=== PATIENT | female | born 1950 | race Caucasian/White ===

== ENCOUNTER 2023-10-05 17:43 | Emergency (ER) | payer BC, SELFPAY ==
[2023-10-05 17:47] VITALS: BP 103/88
[2023-10-05 18:09] LABS: % Basophils 0.2 % (0-2); % Immature Granulocytes 0.4 % (0-0.5); % Lymphocytes 5.8 % (20.5-51.1); % Monocytes 7.1 % (1.7-9.3); % Neutrophils 86.5 % (42.2-75.2); Absolute Immature Granulocytes 0.1 10^3/uL (0-0.05); Absolute Lymphocytes 0.8 10^3/uL (1.2-3.4); Absolute Neutrophils 11.9 10^3/uL (1.4-6.5); Hematocrit 37.3 % (37.0-47.0); Hemoglobin 12.1 g/dL (12.0-16.0); Mean Corp Hgb Conc. 32.4 g/dL (33.0-37.0); Mean Corpuscular Hgb 29.4 pg (27.0-31.0); Mean Corpuscular Volume 90.8 fL (81.0-99.0); Mean Platelet Volume 10.1 fL (7.4-10.4); Nucleated Red Blood Cells % 0 %; Platelet Count 158 10^3/uL (130-400); Red Blood Cell Count 4.11 10^6/uL (4.20-5.40); Red Cell Dist. Width 13.5 % (11.5-14.5); White Blood Cell Count 13.7 10^3/uL (4.8-10.8)
[2023-10-05 18:25] LABS: Urine Albumin 2+ (Neg - Trace); Urine Bilirubin 1+ (Negative); Urine Character Slightly Cloudy (Clear); Urine Color Yellow; Urine Glucose Negative (Negative); Urine Ketone 2+ (Negative); Urine Leukocyte 2+ (Negative); Urine Nitrite Negative (Negative); Urine Occult Blood 4+ (Negative); Urine Urobilinogen 1+ (Neg - 1+)
[2023-10-05 18:28] LABS: ALT (SGPT) 30 U/L (0-35); AST (SGOT) 46 U/L (14-36); Albumin 3.4 g/dl (3.5-5.0); Alkaline Phosphatase 96 U/L (38-126); Blood Urea Nitrogen 40 mg/dl (7-17); Carbon Dioxide 24 mmol/L (22-30); Chloride 100 mmol/L (98-107); Glucose 165 mg/dl (70-99); Potassium 4.3 mmol/L (3.5-5.1); Sodium 133 mmol/L (135-145); Total Protein 7.1 g/dl (6.3-8.2); eGFR 39.97
[2023-10-05 18:35] LABS: Urine Amorphous Seen
[2023-10-05 18:39] LABS: Urine Bacteria Many (Negative)
[2023-10-05 18:42] LABS: Urine Red Blood Cell 26-30 /HPF (0-2)
--- NOTE | 2023-10-05 20:49 | ED.GENMED ---
History of Present Illness
General
Chief Complaint: Weakness
Source: patient
Exam Limitations: none
Time Seen by Provider: 10/05/23 20:38
Travel History
Have you had any contact with someone who has COVID-19?: No
Do you have any symptoms of coronavirus? Fever > 100 degrees, chills, cough, shortness of breath, sore throat, loss of taste or smell, muscle aches, or headache?: No
History of Present Illness
History of Present Illness:
This is a 73 year old female that comes in with c/o just not feeling good. States that she has been sick since Thursday. Stats that she has a headache and feels very weak. States that on Thursday and Thursday she was unable to get up without help.
States that today she could get up and get into the tub. States that it just seemed that her legs wouldn't work to well. States that she went to today and they said she had a low grade fever of 99.9. States that she was negative for COVID and
Influenza. States that she has been SOB, she vomited 4 times on Thursday and has a headache across her forehead. States that she also felt cold. Denies any chest pain, abd pain, diarrhea, dizziness, urinary burning.
Past History
Past History
ED Past Medical History: Hypercholesterolemia, NIDDM and Other (Macular degeneration)
ED Past Surgical History: (X 2) and Other (cataracts)
Social History
Tobacco: Non-smoker
Alcohol: None
Personal:
Living: with family
Review of Systems
Review of Systems
All Other Systems: ROS reviewed and negative except as documented in HPI and ROS
Constitutional: Reports fever (Low grade); Denies chills
EENT: Reports no symptoms
Respiratory: Reports trouble breathing; Denies cough
Cardiac: Reports no symptoms; Denies chest pain
ABD/GI: Reports vomiting; Denies abdominal pain, nausea or diarrhea
: Reports no symptoms; Denies dysuria, frequency or urgency
Musculoskeletal: Reports back pain (Right low back pain. ) and other (Difficulty walking)
Skin: Reports no symptoms
Neurological: Reports headache; Denies dizzy
Psychiatric: Reports no symptoms
Phy Exam
General Physical Exam
General Presentation: no apparent distress
General age: appears stated age
General Skin: warm and dry
General Habitus: elderly
General Mental: alert
General Hydration: dry mucous membranes
ENT Exam
ENT Exam: TM's normal, pharynx normal and neck supple
Eye Exam
Eye Exam: EOMI
Cardiovascular Exam
Cardiovascular Exam: regular rate/rhythm, no edema and normal peripheral pulses
Pulmonary Exam
Pulmonary Exam: lungs clear, no respiratory distress, no rales, chest non tender, no crackles, no rhonchi, no wheezing and no cough
Gastrointestinal Exam
Gastrointestinal Exam: normal bowel sounds, non tender, soft, no organomegaly, no pulsatile mass and non distended
Musculoskeletal Exam
Musculoskeletal Exam: full ROM and no edema
Skin Exam
Skin Exam: normal color, warm/dry, no rash and no petechia
Psychiatric Exam
Psychiatric Exam: normal mood/affect
Course
Orders/Labs/Results
Orders:
Orders
10/05/23 17:53
Electrocardiogram (*1) Urgent
Reason for Study: Other
Other Reason for Exam: Possible Sepsis
EKG- Treatment ONCE
10/05/23 17:59
Complete Blood Count/With Diff Urgent
Comprehensive Metabolic Panel Urgent
10/05/23 18:10
Urinalysis Reflex To Culture Urgent
Date Specimen was Collected: 10/05/23
Time Specimen was Collected: 17:53
Urine Microscopic Reflex Cult Urgent
Urine Culture Urgent
MARY Source: U
Specimen Description:
Date Specimen was Collected: 10/05/23
Time Specimen was Collected: 17:53
10/05/23 20:49
US Abdomen Complete/Upper Urgent
Comment:
Reason For Exam: right upper abd pain, blood in urine
10/05/23 20:50
CT Head W/o Iv Contrast Urgent
Comment:
Reason For Exam: difficulty walking headache,
10/05/23 20:51
0.9% Sodium Chloride 1000 ml [Nss] 1,000 ml IV BOLUS
Acetaminophen [Tylenol] 1,000 mg PO NOW STA
10/05/23 20:52
CR Chest - 2 Views Urgent
Comment:
Reason For Exam: SOB
10/05/23 21:00
Troponin I Urgent
10/05/23 22:15
CefTRIAXone [Rocephin] 1,000 mg IV NOW STA
Abnormal Lab Results
10/05/23 10/05/23
17:59 18:10
WBC 13.7 H 10^3/uL
(4.8-10.8)
RBC 4.11 L 10^6/uL
(4.20-5.40)
MCHC 32.4 L g/dL
(33.0-37.0)
Abs Immat Gran (auto) 0.1 H 10^3/uL
(0-0.05)
Absolute Neuts (auto) 11.9 H 10^3/uL
(1.4-6.5)
Absolute Lymphs (auto) 0.8 L 10^3/uL
(1.2-3.4)
Absolute Monos (auto) 1.0 H 10^3/uL
(0.1-0.6)
Neutrophils % 86.5 H %
(42.2-75.2)
Lymphocytes % 5.8 L %
(20.5-51.1)
Sodium 133 L mmol/L
(135-145)
BUN 40 H mg/dl
(7-17)
Creatinine 1.4 H mg/dL
(0.6-1.0)
Glucose 165 H mg/dl
(70-99)
Total Bilirubin 2.0 H mg/dl
(0.2-1.3)
AST 46 H U/L
(14-36)
Albumin 3.4 L g/dl
(3.5-5.0)
Urine Ketones 2+ A
(Negative)
Ur Occult Blood Reflex 4+ A
(Negative)
Urine Bilirubin 1+ A
(Negative)
Leukocyte Esterase Rfl 2+ A
(Negative)
Urine RBC 26-30 A /HPF
(0-2)
Urine WBC (Reflex) 11-15 A /HPF
(0-5)
Urine Bacteria (Reflex) Many A
(Negative)
Urine Albumin (Reflex) 2+ A
(Neg - Trace)
10/05/23 17:59
10/05/23 17:59
Leukocytosis, Sodium slightly low, Dehydration, renal insufficiency, Glucose nonfasting, Total dalila mildly elevated. AST elevation. Urine positive for infection.
Troponin 0.019
Vital Signs
Initial and Last Documented VS:
Initial Vital Signs
Temp Pulse BP Pulse Ox
98.7 F 102 103/88 98
10/05/23 17:47 10/05/23 17:47 10/05/23 17:47 10/05/23 17:47
Last Documented Vital Signs
Temp Pulse Resp BP Pulse Ox
98.7 F 76 14 116/53 93
10/05/23 17:47 10/06/23 00:15 10/06/23 00:15 10/06/23 00:00 10/06/23 00:00
MDM/Problems Addressed
Differential Diagnosis Includes:
UTI, viral syndrome
MDM/Problems Addressed:
This is a 73 year old female that comes in with c/o just not feeling well. states that she has been sick since Thursday with a headache and felt very weak. States that she needed to have her son help her to get OOB on Thursday and Thursday. Today she
was able to get up herself. States that she has increased right sided low back pain, she vomited 4 times on Thursday and has a headache.
Will get labs, CT head, Chest x-ray and Urine. Will also get US complete due to RUQ pain.
Back into see patient. Patient was sleeping but arouses easily. Explained that her blood work shows dehydrated and she has a urinary tract infection. Her CT of the head is normal. Got patient OOB and patient is able to walk unassisted and dressed
self. States that she feels much better. Will place patient on an oral antibiotic and have her follow up with the family doctor. Patient to return with any concern
Chronic conditions affecting care: DM
Acute Exacerbation and/or Progression of Chronic Illness:
NA
*Radiology
Radiology exam reviewed: radiology read reviewed (CT head-No acute intracranial abnormality noted. Chest- NO acute cardiopulmonary process US=NO acute findings. No gallstones or slidge within the gallbladder. No gallbladder wall thickening or
appreciable pericholecystic fluid. Negative sonographic Valdez's sign per report. No ductal dialtion.) and other (US cont- CMD measures 5mm in diameter which is within normal limits. Visualized pancreas and liver appear within normal limits. Righ
tkidney appears normal. Left kidney is atrophic with cortical thinning. Spleen appears normal. No appreciable free fluid. )
*Pulse Oximetry
Patient hypoxic: no
*EKG
Interpreted by ED Provider?: Yes
Interpretation: normal
Heart Rate: 88
Rate: normal
Rhythm: sinus
[place]: normal axis
Interval: normal interval
QRS Pattern: normal QRS
Ischemia: no ischemia
*Equipment [employer]er Storage Interpretation
Rate: Equipment [employer]er Storage- N/A
*Critical Care Note
Total Time (30-74mins, 75-104mins- exclusive of procedures): Not Applicable
ED Attending Note
-
Portions of this chart may have been created with voice recognition software.� Occasional wrong word or��sound alike� substitutions may have occurred due to the inherent limitations of voice recognition software.
Discharge Plan
Departure
Patient Disposition: Home (Routine Discharge)
Date of Disposition: 10/06/23
Time of Disposition: 00:32
Patient with high blood pressure during this ER visit?: No
Condition: Good
Covid-19: Not Applicable
Discharge Problem:
Acute dehydration, Urinary tract infection
Instructions: Dehydration, Adult (DC), Urinary Tract Infection, Adult (DC)
Prescriptions:
New
cefdinir 300 mg capsule
300 mg PO BID Qty: 14 0RF
No Action
glipizide 10 mg tablet
10 mg PO BID
naproxen sodium [Aleve] 220 mg Tablet
220 mg PO Q12H PRN (Reason: right knee pain)
rosuvastatin 10 mg tablet
10 mg PO DAILY
Referrals:
NONE,* [Family Provider] -
Activity Restrictions/Additional Instructions:
As discussed, your blood work shows that you are dehydrated and your urine shows that you have a urinary tract infection. Please increase your water intake to 8-8oz glasses daily. You have have been given a prescription to take a home. Please take
as directed until finished. You were given IV antibiotics here. Please follow up with the family doctor for further evaluation. IF YOU HAVE HAVE FEVER, OR ANY OTHER CONCERNS PLEASE RETURN TO THE EMERGENCY ROOM.
Interventions
Interventions:
*Risk Screen - Suicide Last Done: 10/05/23 17:52
*General Assessment Last Done: 10/05/23 17:52
*Neglect/Abuse Screening Last Done: 10/05/23 17:52
ED- Fall Risk Assessment Last Done: 10/06/23 00:00
*ED COVID-19 Vaccine History Last Done: 10/05/23 20:59
ED- Cardiac Assessment Last Done: 10/06/23 00:00
ED- Neurological Assessment Last Done: 10/06/23 00:00
ED- Pulmonary Assessment Last Done: 10/06/23 00:00
[2023-10-05] MEDS: TYLENOL 1000 MG PO (20:56)
[2023-10-05] MEDS: NSS 1000 IV (20:57)
[2023-10-05 20:58] VITALS: BP 127/85; BMI 35.0
[2023-10-05 21:35] LABS: Troponin I 0.019 ng/ml
[2023-10-05] MEDS: ROCEPHIN 1000 MG IV (22:27)
[2023-10-05 23:56] VITALS: BP 126/57
[2023-10-06] VITALS: BP 116/53
== END 2023-10-06 00:57 | disposition home or self-care (01) ==
LOC: EMR 17:43
PROVIDERS: Clinical Nurse Specialist Family Health; Emergency Medicine; EMERGENCY PHYSICIAN Emergency Medicine
DX: E86.0 Dehydration (principal); N39.0 Urinary tract infection, site not specified; E11.9 Type 2 diabetes mellitus without complications
CPT/HCPCS: 99285; 96374; 96361; 70450; 71046; 76700; 80053; 81003; 81015; 84484; 85025; 87077; 87086; 87186; 93005

== ENCOUNTER → 2023-10-28 10:13 | Outpatient (REF) | payer BC, SELFPAY ==
[2023-10-28 11:49] LABS: ALT (SGPT) 28 U/L (0-35); AST (SGOT) 24 U/L (14-36); Alkaline Phosphatase 105 U/L (38-126); Blood Urea Nitrogen 24 mg/dl (7-17); Calcium 9.3 mg/dl (8.4-10.2); Carbon Dioxide 25 mmol/L (22-30); Chloride 108 mmol/L (98-107); Glucose 115 mg/dl (70-99); HDL Cholesterol 51 mg/dl; LDL Cholesterol, Calculated 86 mg/dl; Potassium 5.3 mmol/L (3.5-5.1); Sodium 137 mmol/L (135-145); Total Bilirubin 1.2 mg/dl (0.2-1.3); Total Cholesterol 176 mg/dl (50-199); Total Protein 7.7 g/dl (6.3-8.2); Triglyceride 199 mg/dl (10-149); Very Low Density Lipoprotein 39 mg/dl (0-30); eGFR > 60.00
[2023-10-28 12:10] LABS: Glycohemoglobin (HgbA1c) 7.7 % (4.0-5.6)
[2023-10-28 12:55] LABS: Microalbumin, Random Urine 21.5 mg/dl (0.6-1.7); Microalbumin/creatinine Ratio 245.2 mg/g
== END ==
LOC: REG 10:13
PROVIDERS: ATTENDING PHYSICIAN Nurse Practitioner Adult Health
DX: Z01.818 Encounter for other preprocedural examination (principal)
CPT/HCPCS: 36415; 80053; 80061; 82043; 82570; 83036

== ENCOUNTER → 2023-12-29 08:20 | Outpatient (REF) | payer BC, SELFPAY | LOC: CLAB 08:20 | PROVIDERS: ATTENDING PHYSICIAN Surgery | DX: N39.0 Urinary tract infection, site not specified (principal) | CPT/HCPCS: 87077; 87086; 87186 ==

== ENCOUNTER 2024-01-14 12:52 | Inpatient (IN) | payer BC, MEDICARE, SELFPAY ==
[2024-01-14] VITALS (36 sets, daily range): BP systolic 59–122; BP diastolic 36–74; BMI 35.3
--- NOTE | 2024-01-14 11:21 | ED.GENMED ---
History of Present Illness
<JENNIFER Dominguez - Last Filed: 01/14/24 15:20>
General
Chief Complaint: Fever
Source: patient
Exam Limitations: none
Time Seen by Provider: 01/14/24 11:18
Nursing documentation reviewed up to this point in time: agreed with
Travel History
Have you had any contact with someone who has COVID-19?: No
Do you have any symptoms of coronavirus? Fever > 100 degrees, chills, cough, shortness of breath, sore throat, loss of taste or smell, muscle aches, or headache?: No
History of Present Illness
History of Present Illness:
Patient is a 73-year-old female sent from surgery center. Patient being sent to the ER for post uroscopic sepsis had a kidney stone surgery stent exchange and replaced 2 hours prior to arrival and developed fever chills and tachycardia in PACU send
history of type 2 diabetes with recurrent UTI since early 2023. She had urosepsis December 2023 and required emergent stent placement in [facility]. Patient being sent by Dr. Oates for IV antibiotics, admission for urosepsis. And notes from
PACU appears the patient did get Cipro this morning however we will still give Levaquin as discussed with ED physician. Patient still presents febrile but apparently got Tylenol prior to arrival will give small dose of Toradol IV.
.
Past History
<JENNIFER Dominguez - Last Filed: 01/14/24 15:20>
Past History
ED Past Medical History: Hypercholesterolemia, NIDDM and Other (Macular degeneration)
ED Past Surgical History: (X 2) and Other (cataracts)
Social History
Tobacco: Non-smoker
Alcohol: None
Personal:
Living: with family
Review of Systems
<JENNIFER Dominguez - Last Filed: 01/14/24 15:20>
Review of Systems
Allergies reviewed?: Yes
All Other Systems: ROS reviewed and negative except as documented in HPI and ROS
Constitutional: Reports chills
EENT: Reports no symptoms
Respiratory: Reports no symptoms
Cardiac: Reports no symptoms
ABD/GI: Reports no symptoms
Musculoskeletal: Reports no symptoms
Skin: Reports no symptoms
Neurological: Reports no symptoms
Psychiatric: Reports no symptoms
Phy Exam
<JENNIFER Dominguez - Last Filed: 01/14/24 15:20>
General Physical Exam
General Presentation: no apparent distress
General age: appears stated age
General Skin: warm and dry
General Habitus: normal
General Mental: alert
General Hydration: appears well hydrated
Cardiovascular Exam
Cardiovascular Exam: regular rate/rhythm, no murmur and normal peripheral pulses
Pulmonary Exam
Pulmonary Exam: lungs clear and no respiratory distress
Neurological Exam
Neurological Exam: alert and oriented x3
Musculoskeletal Exam
Musculoskeletal Exam: full ROM
Skin Exam
Skin Exam: normal color and warm/dry
Psychiatric Exam
Psychiatric Exam: normal mood/affect
Course
<JENNIFER Dominguez - Last Filed: 01/14/24 15:20>
Orders/Labs/Results
Orders:
Orders
01/14/24 Breakfast
1800 calorie (15 carb) Diabetic
01/14/24 11:19
Electrocardiogram (*1) Urgent
Reason for Study: Other
Other Reason for Exam: Possible Sepsis
Cardiac Monitoring- Treatment ONCE
EKG- Treatment ONCE
IV Insert/Care/Rem.- Treatment PRN
01/14/24 11:21
Basic Metabolic Panel Urgent
Complete Blood Count/With Diff Urgent
Lactic Acid Q4H
Comment: ON ICE, CANCEL 2ND ORDER IF FIRST LACTIC ACID LEVEL <2
Blood Culture Q30M
MARY Source: Blood/Venous
Specimen Description:
Comment: FROM 2 SEPARATE SITES
01/14/24 11:23
Straight cath- Treatment ONCE
01/14/24 11:24
UROLOGY CONSULT Urgent
Consulting Provider: Venkata Oates
Was physician already notified: Yes
LevoFLOXacin 500 MG/100 ML [Levaquin] 500 mg in 100 ml IV NOW
01/14/24 11:28
Ketorolac [Toradol] 15 mg IV NOW STA
01/14/24 11:29
Blood Culture Q30M
MARY Source: Blood/Venous
Specimen Description:
Comment: FROM 2 SEPARATE SITES
01/14/24 11:30
Lactic Acid Q4H
Comment: ON ICE, CANCEL 2ND ORDER IF FIRST LACTIC ACID LEVEL <2
01/14/24 11:34
UA Reflex to Culture [Urinalysis Reflex To Culture] Urgent
Date Specimen was Collected: 01/14/24
Time Specimen was Collected: 11:33
Urine Microscopic Reflex Cult Urgent
Urine Culture Urgent
MARY Source: U
Specimen Description:
Date Specimen was Collected: 01/14/24
Time Specimen was Collected: 11:33
01/14/24 12:20
Add On- LAB Stat
Tests Added?: Iron, B12, ferritin, folate, TIBC
01/14/24 12:34
Admit/Transfer Patient As Directed
Co-Sign Provider:
Level of Care: Inpatient admission
Assign to:: Telemetry
Physician / Group: julia
Diagnosis: sepsis
Reason for Telemetry: Other
Other Reason for Telemetry: sepsis
Date to Stop Telemetry: 01/16/24
Time to Stop Telemetry: 11:00
Reason for Hospitalization: sepsis
Expected length of stay greater than two midnights?: Yes
ELOS- Estimated Length of Stay in days: 3
I certify the patient meets the requirements for IP care: Yes
01/14/24 12:35
Code Status As Directed
Resuscitation Status: Full Code
01/14/24 12:46
HEMATOLOGY CONSULT Routine
Consulting Provider: Alejandro Hudson
Was physician already notified: Yes
INFECTIOUS DISEASE CONSULT Routine
Consulting Provider: Ata Infante
Was physician already notified: Yes
01/14/24 12:47
Ferritin Urgent
Folate Urgent
Iron Urgent
Total Iron Binding Urgent
Troponin I Stat
Vitamin B12 Urgent
01/14/24 13:55
Lactic Acid Q4H
Comment: repeat q4 hours x 4 or until less than 2 mmol/L
0.9% Sodium Chloride 1000 ml [Nss] 1,000 ml IV 125 mls/hr
Acetaminophen [Tylenol/Feverall] 650 mg RECTAL Q4HPRN PRN
Acetaminophen [Tylenol] 650 mg PO Q4HPRN PRN
Dextrose 50%-Water [Dextrose 50% Syringe] 12.5 grams IV [id number] PRN
Glucagon [GlucaGen] 1 mg IM PRN PRN
01/14/24 13:55
Activity As Directed
Activity Level: As Tolerated
Bedside Glucose Monitoring As Directed
Frequency: AC&HS
Additional Instructions:: Change to q6h if pt on TPN, tube feeding or not eating
Intake/ Output As Directed
Frequency: Per unit guidelines
Vital Signs As Directed
Frequency: Per unit guidelines
DX Deep Vein Thrombosis Video Routine
01/14/24 16:30
Insulin Aspart Corrective Low [Novolog Flexpen-Low Resistance] See Protocol SC AC
01/14/24 17:55
Lactic Acid Q4H
Comment: repeat q4 hours x 4 or until less than 2 mmol/L
01/14/24 18:00
Enoxaparin Sodium [Lovenox] 40 mg SC QPM
01/14/24 21:55
Lactic Acid Q4H
Comment: repeat q4 hours x 4 or until less than 2 mmol/L
01/14/24 22:00
Tamsulosin [Flomax] 0.4 mg PO HS
01/15/24 01:55
Lactic Acid Q4H
Comment: repeat q4 hours x 4 or until less than 2 mmol/L
01/15/24 06:00
Complete Blood Count/No Diff IN AM
Glycohemoglobin (HgbA1c) IN AM
01/15/24 08:00
Rosuvastatin Calcium [Crestor] 10 mg PO DAILY
01/16/24 06:00
Complete Blood Count/No Diff IN AM
01/16/24 11:00
DC Protocol for Telemetry ONCE
01/17/24 06:00
Complete Blood Count/No Diff IN AM
01/18/24 06:00
Complete Blood Count/No Diff IN AM
01/19/24 06:00
Complete Blood Count/No Diff IN AM
Abnormal Lab Results
01/14/24 01/14/24 01/14/24
11:21 11:34 12:47
WBC 0.4 L* 10^3/uL
(4.8-10.8)
RBC 3.16 L 10^6/uL
(4.20-5.40)
Hgb 9.2 L g/dL
(12.0-16.0)
Hct 29.3 L %
(37.0-47.0)
MCHC 31.4 L g/dL
(33.0-37.0)
Absolute Neuts (auto) 0.2 L* 10^3/uL
(1.4-6.5)
Absolute Lymphs (auto) 0.2 L 10^3/uL
(1.2-3.4)
Absolute Monos (auto) 0.0 L 10^3/uL
(0.1-0.6)
Immature Gran % 5.1 H %
(0-0.5)
Monocytes % 0.0 L %
(1.7-9.3)
Chloride 114 H mmol/L
(98-107)
Carbon Dioxide 19 L mmol/L
(22-30)
BUN 35 H mg/dl
(7-17)
Lactic Acid 2.5 H mmol/L
(0.7-2.0)
Calcium 8.0 L mg/dl
(8.4-10.2)
TIBC 242 L ug/dl
(265-497)
Ur Occult Blood Reflex 4+ A
(Negative)
Leukocyte Esterase Rfl 2+ A
(Negative)
Urine RBC >100 A /HPF
(0-2)
Urine Bacteria (Reflex) Few A
(Negative)
Urine Glucose 3+ A
(Negative)
Urine Albumin (Reflex) 2+ A
(Neg - Trace)
01/14/24 11:21
01/14/24 11:21
Vital Signs
Initial and Last Documented VS:
Initial Vital Signs
BP
118/74
01/14/24 11:14
Last Documented Vital Signs
Temp Pulse Resp BP Pulse Ox
98.8 F 78 16 59/38 91
01/14/24 13:57 01/14/24 14:45 01/14/24 14:45 01/14/24 14:45 01/14/24 14:45
Invisible Braces Orthodontist consulted with Physician
Invisible Braces Orthodontist consulted with physician?: Yes
Name of Physician Consulted: Jasen
<Nate Aggarwal, DO - Last Filed: 01/14/24 11:27>
Orders/Labs/Results
Orders:
Orders
01/14/24 Breakfast
1800 calorie (15 carb) Diabetic
01/14/24 11:19
Electrocardiogram (*1) Urgent
Reason for Study: Other
Other Reason for Exam: Possible Sepsis
Cardiac Monitoring- Treatment ONCE
EKG- Treatment ONCE
IV Insert/Care/Rem.- Treatment PRN
01/14/24 11:21
Basic Metabolic Panel Urgent
Complete Blood Count/With Diff Urgent
Lactic Acid Q4H
Comment: ON ICE, CANCEL 2ND ORDER IF FIRST LACTIC ACID LEVEL <2
Blood Culture Q30M
MARY Source: Blood/Venous
Specimen Description:
Comment: FROM 2 SEPARATE SITES
01/14/24 11:23
Straight cath- Treatment ONCE
01/14/24 11:24
UROLOGY CONSULT Urgent
Consulting Provider: Venkata Oates
Was physician already notified: Yes
LevoFLOXacin 500 MG/100 ML [Levaquin] 500 mg in 100 ml IV NOW
01/14/24 11:28
Ketorolac [Toradol] 15 mg IV NOW STA
01/14/24 11:29
Blood Culture Q30M
MARY Source: Blood/Venous
Specimen Description:
Comment: FROM 2 SEPARATE SITES
01/14/24 11:30
Lactic Acid Q4H
Comment: ON ICE, CANCEL 2ND ORDER IF FIRST LACTIC ACID LEVEL <2
01/14/24 11:34
UA Reflex to Culture [Urinalysis Reflex To Culture] Urgent
Date Specimen was Collected: 01/14/24
Time Specimen was Collected: 11:33
Urine Microscopic Reflex Cult Urgent
Urine Culture Urgent
MARY Source: U
Specimen Description:
Date Specimen was Collected: 01/14/24
Time Specimen was Collected: 11:33
01/14/24 12:20
Add On- LAB Stat
Tests Added?: Iron, B12, ferritin, folate, TIBC
01/14/24 12:34
Admit/Transfer Patient As Directed
Co-Sign Provider:
Level of Care: Inpatient admission
Assign to:: Telemetry
Physician / Group: julia
Diagnosis: sepsis
Reason for Telemetry: Other
Other Reason for Telemetry: sepsis
Date to Stop Telemetry: 01/16/24
Time to Stop Telemetry: 11:00
Reason for Hospitalization: sepsis
Expected length of stay greater than two midnights?: Yes
ELOS- Estimated Length of Stay in days: 3
I certify the patient meets the requirements for IP care: Yes
01/14/24 12:35
Code Status As Directed
Resuscitation Status: Full Code
01/14/24 12:46
HEMATOLOGY CONSULT Routine
Consulting Provider: Alejandro Hudson
Was physician already notified: Yes
INFECTIOUS DISEASE CONSULT Routine
Consulting Provider: Ata Infante
Was physician already notified: Yes
01/14/24 12:47
Ferritin Urgent
Folate Urgent
Iron Urgent
Total Iron Binding Urgent
Troponin I Stat
Vitamin B12 Urgent
01/14/24 13:55
Lactic Acid Q4H
Comment: repeat q4 hours x 4 or until less than 2 mmol/L
0.9% Sodium Chloride 1000 ml [Nss] 1,000 ml IV 125 mls/hr
Acetaminophen [Tylenol/Feverall] 650 mg RECTAL Q4HPRN PRN
Acetaminophen [Tylenol] 650 mg PO Q4HPRN PRN
Dextrose 50%-Water [Dextrose 50% Syringe] 12.5 grams IV [id number] PRN
Glucagon [GlucaGen] 1 mg IM PRN PRN
01/14/24 13:55
Activity As Directed
Activity Level: As Tolerated
Bedside Glucose Monitoring As Directed
Frequency: AC&HS
Additional Instructions:: Change to q6h if pt on TPN, tube feeding or not eating
Intake/ Output As Directed
Frequency: Per unit guidelines
Vital Signs As Directed
Frequency: Per unit guidelines
DX Deep Vein Thrombosis Video Routine
01/14/24 16:30
Insulin Aspart Corrective Low [Novolog Flexpen-Low Resistance] See Protocol SC AC
01/14/24 17:55
Lactic Acid Q4H
Comment: repeat q4 hours x 4 or until less than 2 mmol/L
01/14/24 18:00
Enoxaparin Sodium [Lovenox] 40 mg SC QPM
01/14/24 21:55
Lactic Acid Q4H
Comment: repeat q4 hours x 4 or until less than 2 mmol/L
01/14/24 22:00
Tamsulosin [Flomax] 0.4 mg PO HS
01/15/24 01:55
Lactic Acid Q4H
Comment: repeat q4 hours x 4 or until less than 2 mmol/L
01/15/24 06:00
Complete Blood Count/No Diff IN AM
Glycohemoglobin (HgbA1c) IN AM
01/15/24 08:00
Rosuvastatin Calcium [Crestor] 10 mg PO DAILY
01/16/24 06:00
Complete Blood Count/No Diff IN AM
01/16/24 11:00
DC Protocol for Telemetry ONCE
01/17/24 06:00
Complete Blood Count/No Diff IN AM
01/18/24 06:00
Complete Blood Count/No Diff IN AM
01/19/24 06:00
Complete Blood Count/No Diff IN AM
Abnormal Lab Results
01/14/24 01/14/24 01/14/24
11:21 11:34 12:47
WBC 0.4 L* 10^3/uL
(4.8-10.8)
RBC 3.16 L 10^6/uL
(4.20-5.40)
Hgb 9.2 L g/dL
(12.0-16.0)
Hct 29.3 L %
(37.0-47.0)
MCHC 31.4 L g/dL
(33.0-37.0)
Absolute Neuts (auto) 0.2 L* 10^3/uL
(1.4-6.5)
Absolute Lymphs (auto) 0.2 L 10^3/uL
(1.2-3.4)
Absolute Monos (auto) 0.0 L 10^3/uL
(0.1-0.6)
Immature Gran % 5.1 H %
(0-0.5)
Monocytes % 0.0 L %
(1.7-9.3)
Chloride 114 H mmol/L
(98-107)
Carbon Dioxide 19 L mmol/L
(22-30)
BUN 35 H mg/dl
(7-17)
Lactic Acid 2.5 H mmol/L
(0.7-2.0)
Calcium 8.0 L mg/dl
(8.4-10.2)
TIBC 242 L ug/dl
(265-497)
Ur Occult Blood Reflex 4+ A
(Negative)
Leukocyte Esterase Rfl 2+ A
(Negative)
Urine RBC >100 A /HPF
(0-2)
Urine Bacteria (Reflex) Few A
(Negative)
Urine Glucose 3+ A
(Negative)
Urine Albumin (Reflex) 2+ A
(Neg - Trace)
01/14/24 11:21
01/14/24 11:21
Vital Signs
Initial and Last Documented VS:
Initial Vital Signs
BP
118/74
01/14/24 11:14
Last Documented Vital Signs
Temp Pulse Resp BP Pulse Ox
98.8 F 78 16 59/38 91
01/14/24 13:57 01/14/24 14:45 01/14/24 14:45 01/14/24 14:45 01/14/24 14:45
<JENNIFER Dominguez - Last Filed: 01/14/24 15:20>
MDM/Problems Addressed
MDM/Problems Addressed:
Patient is a 73-year-old female sent from surgery center for admission patient was doing ureteroscopy, stent developed fever sent for sepsis workup. Patient was given 2 L of fluid prior to arrival and Tylenol. Patient presents awake alert febrile
however nontachycardic we will hold off on fluids as patient did have significant fluid will give small dose of Toradol to assist in fever. Patient has a history of E. coli UTIs. She was given Cipro preop as discussed a physician was given 1 dose
of Levaquin here in the ER will admit to hospital service labs reviewed patient is neutropenic admitting team aware will recheck lab BUN elevated 35 normal creatinine.
<JENNIFER Dominguez - Last Filed: 01/14/24 15:20>
*Radiology
Radiology exam reviewed: radiology read reviewed
*Critical Care Note
Total Time (30-74mins, 75-104mins- exclusive of procedures): Not Applicable
ED Attending Note
<JENNIFER Dominguez - Last Filed: 01/14/24 15:20>
-
Portions of this chart may have been created with voice recognition software.� Occasional wrong word or��sound alike� substitutions may have occurred due to the inherent limitations of voice recognition software.
<Nate Aggarwal DO - Last Filed: 01/14/24 11:27>
ED Attending Note
Patient seen and examined by attending physician: Yes
I performed the substantive portion of visit, reviewed & personally made and approve the management plan that is documented in note by myself or ALCIDES.: Yes
ED Attending Note:
I have seen and evaluated the patient with a [id number] encounter. I have spoken to the advance practicer provider and involved in the medical history, the physical exam, medical decision making.
Evaluation and management service: agree unless noted differently below.
Results interpretation: agree unless noted differently below.
Focused HPI: 73-year-old female presenting from PACU after ureteral stent exchange. Concern for developing sepsis
Physical exam: Mildly uncomfortable, tachycardic, warm
Medical Decision Making: Will treat impending sepsis with Levaquin. Patient received IV fluids. Give Toradol for fever. Apparently patient received Tylenol earlier today. Urology aware
Discharge Plan
Departure
Patient Disposition: Admit
Date of Disposition: 01/14/24
Time of Disposition: 11:31
Admit to: Med/Surg
Admit to doctor: hospitalist
Presentation/result/management discussed w/ accepting MD/DO: Hospitalist
Patient with high blood pressure during this ER visit?: No
Condition: Fair
Covid-19: Not Applicable
Discharge Problem:
urosepsis
Interventions
Interventions:
*Risk Screen - Suicide Last Done: 01/14/24 11:25
*General Assessment Last Done: 01/14/24 11:25
*Neglect/Abuse Screening Last Done: 01/14/24 11:25
ED- Fall Risk Assessment Last Done: 01/14/24 11:26
*ED COVID-19 Vaccine History Last Done: 01/14/24 11:25
ED- Neurological Assessment Last Done: 01/14/24 11:26
ED-Skin Assessment Last Done: 01/14/24 13:37
[2024-01-14] MEDS: TORADOL 15 MG IV (11:37)
[2024-01-14] MEDS: LEVAQUIN 100 IV (11:39)
[2024-01-14 11:41] LABS: Urine Albumin 2+ (Neg - Trace); Urine Bilirubin Negative (Negative); Urine Character Clear (Clear); Urine Color Yellow; Urine Glucose 3+ (Negative); Urine Ketone Negative (Negative); Urine Leukocyte 2+ (Negative); Urine Nitrite Negative (Negative); Urine Occult Blood 4+ (Negative); Urine Urobilinogen Negative (Neg - 1+); Urine pH 6.5 (5.0-9.0)
[2024-01-14 11:43] LABS: Lactic Acid 2.5 mmol/L (0.7-2.0)
[2024-01-14 11:48] LABS: Blood Urea Nitrogen 35 mg/dl (7-17); Carbon Dioxide 19 mmol/L (22-30); Chloride 114 mmol/L (98-107); Estimated Creatinine Clearance 56 ml/min; Glucose 94 mg/dl (70-99); Sodium 140 mmol/L (135-145); eGFR > 60.00
[2024-01-14 11:54] LABS: % Immature Granulocytes 5.1 % (0-0.5); % Neutrophils 53.9 % (42.2-75.2); Hematocrit 29.3 % (37.0-47.0); Hemoglobin 9.2 g/dL (12.0-16.0); Mean Corp Hgb Conc. 31.4 g/dL (33.0-37.0); Mean Corpuscular Hgb 29.1 pg (27.0-31.0); Mean Corpuscular Volume 92.7 fL (81.0-99.0); Mean Platelet Volume 9.8 fL (7.4-10.4); Nucleated Red Blood Cells % 0 %; Platelet Count 153 10^3/uL (130-400); Red Blood Cell Count 3.16 10^6/uL (4.20-5.40)
[2024-01-14 11:57] LABS: White Blood Cell Count 0.4 10^3/uL (4.8-10.8)
[2024-01-14 12:08] LABS: Urine Red Blood Cell >100 /HPF (0-2); Urine Squamous Cell 0-2 /LPF (Few)
[2024-01-14 12:09] LABS: Urine Bacteria Few (Negative)
--- NOTE | 2024-01-14 12:09 | HPS.HSE ---
Addendum entered and electronically signed by Robert Jules MD 01/14/24 13:22:
As noted this is a 73-year-old female who is a type II diabetic recently diagnosed with nephrolithiasis involving her right side and underwent an urgent stent placement in [facility] in late November apparently was sent home on an antibiotic
which the daughter cannot relate and will try and obtain information on and took it for less than a week and had been doing fairly well and was scheduled to undergo a stent exchange today which was undertaken and she developed fever and chills and a
murky urine per urology. She is now sent for admission with a presentation of sepsis temperature 101.4 borderline tachycardia and also now noted to have a 0.4 white count with absolute neutropenia/she is awake but lethargic and achy. No admitted
respiratory distress urine was noted to have white cells and bacteria and hematuria. Lactic acid is pending/she received a dose of preop ciprofloxacin IV and also received a course of Levaquin here in the ED. Apparently daughter believes that the
patient was told that she may be newly ' anemic' at the time of initial stent placement in [place].
Will treat as complicated UTI with possible underlying bacteremia concern over significant neutropenia on presentation and would repeat a stat CBC to see if briana tabitha/daughter also states that her last glycosylated hemoglobin was 7.7 patient herself
does not check blood sugars at home she remains on glipizide and another medication for her protein in urine. When asked if this was either an ARIAN inhibitor or an ARB she states is not a blood pressure medication.
Await lactic acid
IV fluids
Will defer further quinolone antibiotic with possible acute neutropenia/placed on cefepime and have infectious disease consultation/neutropenic precautions/await culture results
If neutropenia briana tabitha would also welcome hematology input/
Try to obtain further details on postop management after stent placement and bring in any lab work that was done then/daughter states she will bring in/sliding scale coverage for fingerstick blood sugar for now hold glipizide
I saw and examined the patient.
The SALES SUPPORT ADMINISTRATOR or PA's note was reviewed and I agree with the note. With noted above addition
Original Note:
Family Physician
-
Family Physician: Alex Rao
Chief Complaint
-
fever
History of Present Illness
73-year-old female with past medical history for type 2 diabetes, renal stones presented to us with fever chills status post fluoroscopic kidney stone surgery and stent exchange and replacement. At present patient stated headache, dizziness.
Patientalso complaining of chest winded with exertion. Patient denied abdominal pain, nausea, vomiting or diarrhea. Patient denied dysuria hematuria. She had urosepsis December 2023 and required emergent stent placement in [facility].
Admitting for further management
Medical History
Past Medical History
Past Medical History: Reports Other
Additional Past Medical History:
Urine stone with hydronephrosis
Urinary tract infection
Renal stones
Thyroid nodule
Type 2 diabetes
Hypertriglyceridemia
Past Surgical History: Reports None
Social History
Tobacco: Non-smoker
Alcohol: None
Drug: None
Employment: Employed
Family History
Family History: Not pertinent
Allergies / Home Medications
Allergies reflects when Allergies were last updated in [facility].
Home Medications with original date entered in [facility]
Allergy/Medication List:
Allergies
Allergy/AdvReac Type Severity Reaction Status Date / Time
No Known Allergies Allergy Verified 10/06/23 00:12
Home Medications
glipizide 10 mg tablet 10 mg PO BID 10/05/23
naproxen sodium 220 mg tablet (Aleve) 220 mg PO DAILY 10/05/23
rosuvastatin 10 mg tablet 10 mg PO DAILY 10/05/23
ibuprofen 125 mg-acetaminophen 250 mg tablet (Advil Dual Action) 1 tab PO TIDPRN PRN mild pain 01/14/24
tamsulosin 0.4 mg capsule 0.4 mg PO HS 01/14/24
Review of Systems
-
Constitutional: Reports Fever
EENT: Reports No Symptoms
Respiratory: Reports No Symptoms
Cardiac: Reports No Symptoms
Abdomen/GI: Reports No Symptoms
: Reports No Symptoms
Musculoskeletal: Reports No Symptoms
Skin: Reports No Symptoms
Neurological: Reports No Symptoms
Endocrine: Reports No Symptoms
Hematologic/Lymphatic: Reports No Symptoms
Psych: Reports No Symptoms
Physical Exam
Vital Signs
Vital Signs
Temp Pulse Resp BP Pulse Ox
101.4 F H 97 19 118/74 92
01/14/24 11:18 01/14/24 11:18 01/14/24 11:18 01/14/24 11:18 01/14/24 11:18
Physical Exam
General: Well Developed, Well Nourished and No Apparent Distress
HEENT: NormoCephalic, Moist mucous membranes and Atraumatic
Respiratory: Clear
Cardiac: S1/S2 and Regular Rhythm; No Murmur or Rub
GI: Soft, Non Tender, Non Distended and Normal Bowel Sounds; No Organomegaly
Rectal: Deferred by Provider
Musculoskeletal: No Clubbing, No Cyanosis and No Edema
Skin: No Rash
Neuro: Nonfocal/grossly intact
Laboratory Results
-
01/14/24 11:21
01/14/24 11:21
Laboratory Results
Lactic Acid 2.5 mmol/L (0.7-2.0) H 01/14/24 11:21
Total Bilirubin Cancelled 01/14/24 11:21
AST Cancelled 01/14/24 11:21
ALT Cancelled 01/14/24 11:21
Alkaline Phosphatase Cancelled 01/14/24 11:21
Data Reviewed
-
Lab Data: Labs Reviewed by me
Impression/Plan
-
# Post ureteroscopy sepsis
-Sepsis as evident by WBC 0.4, temp 101.4, lactic 2.5
-History of stent exchanged and replaced 2 years ago
-Recent stent placement in [place] 12/2023
-History of E. coli UTI
-Blood and urine culture sent from ER
-Flomax continued
-cefepime continued
-fluids continued
-ID consulted
#severe neutropenia unclear cause
-wbc 0.4, ANC 0.2, ALC 0.2, absolute mono 0.0
-will repeat cbc stat
-hematology consulted
-neutrapenic precuation
# Anemia likely iron deficiency anemia
-No active bleeding
-Obtain ferritin, folate, TIBC
-Continue to monitor
# Type 2 diabetes
-Sliding scale
-Carb controlled diet
# Hyperlipidemia
-Statin continued
# DVT prophylaxis
-Lovenox subcu
# CODE STATUS
-Full code
[2024-01-14 12:35] LABS: Absolute Lymphocytes 0.2 10^3/uL (1.2-3.4); Absolute Neutrophils 0.2 10^3/uL (1.4-6.5)
[2024-01-14 13:07] LABS: Iron 99 ug/dl (37-170)
[2024-01-14 13:17] LABS: Percent Saturation 40 % (20-50); Total Iron Binding Capacity 242 ug/dl (265-497)
[2024-01-14 13:22] LABS: Troponin I < 0.012 ng/ml
[2024-01-14 13:58] LABS: Hematocrit 29.4 % (37.0-47.0); Hemoglobin 9.3 g/dL (12.0-16.0); Mean Corp Hgb Conc. 31.6 g/dL (33.0-37.0); Mean Corpuscular Hgb 29.5 pg (27.0-31.0); Mean Corpuscular Volume 93.3 fL (81.0-99.0); Mean Platelet Volume 9.7 fL (7.4-10.4); Platelet Count 128 10^3/uL (130-400); Red Blood Cell Count 3.15 10^6/uL (4.20-5.40); Red Cell Dist. Width 14.2 % (11.5-14.5)
[2024-01-14 14:03] LABS: White Blood Cell Count 0.7 10^3/uL (4.8-10.8)
[2024-01-14] MEDS: NSS 1000 IV ×2 (14:07→17:47)
[2024-01-14 14:16] LABS: Ferritin 88.9 ng/ml (11.1-264.0)
--- NOTE | 2024-01-14 14:28 | CON.ID ---
Consultation
-
Date/Time Consultation Requested: January 14, 2024 1246
Date/Time Consultation Performed: January 14, 2024 1430
Requesting Provider: Dr. Robert Jules
Performing Provider: Dr. Princess Jean
Reason for Consultation: Post ureteroscopy sepsis
Chief Complaint / Past History
Chief Complaint
Fever and chills
History of Present Illness
73-year-old female with diabetes mellitus type 2, nephrolithiasis, who recently was hospitalized in [facility] late November 2023 when she developed right obstructive uropathy requiring stent placement and had a course of antibiotic. She then
followed-up with local urologist. Today she underwent stone manipulation and exchange of the stent. Postprocedure she developed rigors and fever. She was sent to the ER. Temperature was 101.4. She received ciprofloxacin preprocedure. In the
ER she received levofloxacin then placed on cefepime. Today patient reports she is feeling weak. Has migraine headache. No dysuria. No flank pain.
Past History
Additional Past Medical History:
DM2
Nephrolithiasis
HLD
thyroid nodule
Allergy History:
No Known Allergies Allergy (Verified 10/06/23 00:12)
Medications Reviewed: Yes
Current Antibiotics:
cefepime
Social History
Tobacco: Non-Smoker
Alcohol: None
Drug: None
Family History
Family History: Not Pertinent
Review of Systems
Review of Systems
General: Fever, Chills and Change in Appetite
HEENT: Headache; Negative Sinus Problems or Pharyngitis
Respiratory: Negative Dyspnea or Cough
Gasteroenterology: Negative Nausea or Vomiting
Endocrine: Weakness
Neurological: Negative Dizziness
All systems: All other systems were reviewed and were negative
Vital Signs
Temp Pulse Resp BP Pulse Ox
98.8 F 87 18 89/46 95
01/14/24 13:57 01/14/24 14:00 01/14/24 14:00 01/14/24 14:00 01/14/24 14:00
Selected Entries
01/14/24
11:18
Temp 101.4 F H
Physical Exam
Physical Exam
Constitutional: Acutely Ill
Eyes: No Conjunctival Hemorrhage and Sclera Anicteric
Cardiovascular: Regular Rate and S1/S2
Pulmonary: Clear
Gastrointestinal: Soft, Non Tender and Non Distended
Genito-Urinary: Negative CVA Tenderness
Extremities: Negative Edema
Skin: Negative Rash
Lab / Diagnostic Study Results
01/14/24 13:52
01/14/24 11:21
Abs Immat Gran (auto) 0.0 10^3/uL (0-0.05) 01/14/24 11:21
Absolute Neuts (auto) 0.2 10^3/uL (1.4-6.5) L* 01/14/24 11:21
Absolute Lymphs (auto) 0.2 10^3/uL (1.2-3.4) L 01/14/24 11:21
Absolute Monos (auto) 0.0 10^3/uL (0.1-0.6) L 01/14/24 11:21
Absolute Basos (auto) 0.0 10^3/uL (0-0.2) 01/14/24 11:21
Immature Gran % 5.1 % (0-0.5) H 01/14/24 11:21
Neutrophils % 53.9 % (42.2-75.2) 01/14/24 11:21
Lymphocytes % 41.0 % (20.5-51.1) 01/14/24 11:21
Monocytes % 0.0 % (1.7-9.3) L 01/14/24 11:21
Eosinophils % 0.0 % (0-6) 01/14/24 11:21
Basophils % 0.0 % (0-2) 01/14/24 11:21
Lactic Acid 2.5 mmol/L (0.7-2.0) H 01/14/24 11:21
Ur Squamous Epith Cells 0-2 /LPF (Few) 01/14/24 11:34
Microbiology Results
Micro:
01/14/24 11:21 Blood Culture - Pending
Blood/Venous
01/14/24 11:34 Urine Culture - Pending
Urine
01/14/24 11:29 Blood Culture - Pending
Blood/Venous
Assessment / Plan
# Sepsis immediately post urological procedure concerning for bacteremia.
# Acute neutropenia due to sepsis
-Review of recent urine culture grew E. coli and Enterobacter, for which the Enterobacter was resistant to cefepime.
-DC cefepime
-Start meropenem.
-Trend temperature and white count.
-Await blood culture results.
-Neutropenic precaution.
[2024-01-14 14:47] LABS: Folate 8.1 ng/ml (2.76-20); Vitamin B12 465 pg/ml (239-931)
[2024-01-14] MEDS: LEVOPHED 250 IV ×2 (15:01→23:15)
[2024-01-14] MEDS: ZOFRAN 4 MG IV (15:34)
[2024-01-14 15:38] LABS: Band Neutrophils 0 % (0-3); Eosinophils 4 % (0-6); Lymphocytes 8 % (20-51); Segmented Neutrophils 88 % (42-75)
[2024-01-14 15:40] LABS: Normal RBC Morphology No; Platelets Checked Yes
[2024-01-14 15:41] LABS: Nucleated Red Blood Cells 8 (-); Polychromasia Slight
[2024-01-14 15:42] LABS: Stomatocytes Slight
[2024-01-14 15:43] LABS: Total Cells Counted 100
[2024-01-14 15:44] LABS: Absolute Neutrophils -Man Diff 0.6 10^3/uL (1.4-6.5)
[2024-01-14 15:45] LABS: Target Cells Slight
[2024-01-14 16:17] LABS: Lactic Acid 3.8 mmol/L (0.7-2.0)
[2024-01-14 17:43] LABS: Glucose - Point of Care 128 mg/dl (70-99)
[2024-01-14] MEDS: NOVOLOG FLEXPEN-LOW RESISTANCE SC (17:46)
[2024-01-14] MEDS: MERREM 500 MG IV ×2 (17:52→23:15)
[2024-01-14] MEDS: LOVENOX 40 MG SC (17:52)
[2024-01-14] MEDS: STERILE WATER FOR INJECTION 10 ML IV ×2 (17:53→23:15)
[2024-01-14] MEDS: TYLENOL 650 MG PO (20:01)
[2024-01-14 21:53] LABS: Glucose - Point of Care 122 mg/dl (70-99)
[2024-01-14 22:14] LABS: Lactic Acid 3.7 mmol/L (0.7-2.0)
--- NOTE | 2024-01-14 22:38 | PTCARENOTE ---
pt admitted from the ED- pt is AAOx3- able to make needs known. c/o CARLSON- tylenol given in ED prior to arrival to floor. levophed infusing at 8mcg/min to keep SBP>90. IV fluids infusing. lactic drawn per order- result 3.7. pt oriented to room, call
elizabeth within reach, care ongoing.
[2024-01-15] VITALS (53 sets, daily range): BP systolic 65–150; BP diastolic 24–97; BMI 35.3
[2024-01-15] MEDS: NSS 1000 IV ×2 (01:09→07:34)
[2024-01-15] MEDS: ZOFRAN 4 MG IV ×3 (01:22→21:33)
[2024-01-15] MEDS: TYLENOL 650 MG PO ×2 (01:22→12:32)
--- NOTE | 2024-01-15 01:45 | PTCARENOTE ---
pt noted to be tachycardic 120s-130s, upon entering room, pt vomiting bile- still with c/o CARLSON- IV zofran given and tylenol given per OCT. pt cleaned up without issues.
[2024-01-15 04:07] LABS: Hematocrit 28.8 % (37.0-47.0); Hemoglobin 9.1 g/dL (12.0-16.0); Mean Corp Hgb Conc. 31.6 g/dL (33.0-37.0); Mean Corpuscular Hgb 29.9 pg (27.0-31.0); Mean Corpuscular Volume 94.7 fL (81.0-99.0); Mean Platelet Volume 10.5 fL (7.4-10.4); Platelet Count 125 10^3/uL (130-400); Red Blood Cell Count 3.04 10^6/uL (4.20-5.40); Red Cell Dist. Width 14.6 % (11.5-14.5); White Blood Cell Count 13.3 10^3/uL (4.8-10.8)
[2024-01-15 04:20] LABS: Lactic Acid 3.6 mmol/L (0.7-2.0)
[2024-01-15] MEDS: MERREM 500 MG IV ×3 (05:33→21:39)
[2024-01-15] MEDS: STERILE WATER FOR INJECTION 10 ML IV ×3 (05:33→21:39)
[2024-01-15] MEDS: LEVOPHED 250 IV ×2 (07:06→17:20)
--- NOTE | 2024-01-15 07:09 | W.PN.HOSP.TC ---
Today's Communication/Plan
-
Will need to transfer to ICU as may need further titration of Levophed and pressor support
Continue meropenem
Continue IV fluids
Monitor neutropenia which seems to be improving
Assessment / Plan
Assessment / Plan
73-year-old female with past medical history for type 2 diabetes, renal stones presented to us with fever chills status post fluoroscopic kidney stone surgery and stent exchange and replacement. At present patient stated headache, dizziness.
Patientalso complaining of chest winded with exertion. Patient denied abdominal pain, nausea, vomiting or diarrhea. Patient denied dysuria hematuria. She had urosepsis December 2023 and required emergent stent placement in [place].
Will treat as complicated UTI with possible underlying bacteremia concern over significant neutropenia on presentation and would repeat a stat CBC to see if briana tabitha/daughter also states that her last glycosylated hemoglobin was 7.7 patient herself
does not check blood sugars at home she remains on glipizide and another medication for her protein in urine. When asked if this was either an ARIAN inhibitor or an ARB she states is not a blood pressure medication.
Await lactic acid which subsequently was elevated to 3.6
IV fluids
Will defer further quinolone antibiotic with possible acute neutropenia/placed on cefepime and have infectious disease consultation/neutropenic precautions/await culture results
If neutropenia briana tabitha would also welcome hematology input/follow-up leukopenia again noted at point 0.7
Try to obtain further details on postop management after stent placement and bring in any lab work that was done then/daughter states she will bring in/sliding scale coverage for fingerstick blood sugar for now hold glipizide
# Post ureteroscopy sepsis
-Sepsis as evident by WBC 0.4, temp 101.4, lactic 2.5>> 3.6 continue to trend
-History of stent exchanged and replaced 2 years ago
-Recent stent placement in [place] 12/2023
-History of E. coli UTI with Enterobacter
-Blood and urine culture sent from ER
-Flomax continued
-Now on meropenem after ID consultation and review of prior culture results with resistance to cefepime noted
-fluids continued
-ID consulted
Hypotension
-Resumption in relation to sepsis from gram-negative source
-Has been on none titrated Levophed up to 7 - mcg /remains hypotensive and may need further titration
-Will need to transfer to ICU for as needed titration to maintain a MAP of 65 if possible
#severe neutropenia unclear cause
-wbc 0.4, ANC 0.2, ALC 0.2, absolute mono 0.0>> 13.3 today
-will repeat cbc stat
-hematology consulted
-neutrapenic precuation
# Anemia likely iron deficiency anemia
-No active bleeding
-Obtain ferritin, folate, TIBC
-Continue to monitor
# Type 2 diabetes
-Sliding scale
-Carb controlled diet
# Hyperlipidemia
-Statin continued
# DVT prophylaxis
-Lovenox subcu
# CODE STATUS
-Full code
Anticipated Discharge: 24 - 48 hours
Subjective/Interval History
-
Date of Service: January 15, 2024
She had a restless night little sleep with pressors remaining at 7-8 mics
Objective Data
-
Labs:
Laboratory Results
01/15/24
04:01
WBC 13.3 H
Hgb 9.1 L
Hct 28.8 L
Plt Count 125 L
Vital Signs:
Vital Signs
Temp Pulse Resp BP Pulse Ox
100.0 F 100 26 109/47 97
01/15/24 03:19 01/15/24 06:00 01/15/24 06:00 01/15/24 06:00 01/15/24 06:41
I&O
01/14/24 01/15/24 01/16/24
06:59 06:59 06:59
Intake Total 1145 / 1145
Balance 114 / 114
Review of Systems
-
History Source: Patient and Family
Constitutional: Reports Fever, Fatigue and Weakness
EENT: Reports No Symptoms Reported
Respiratory: Reports No Symptoms
Cardiac: Reports No Symptoms
Abdomen/GI: Reports Abdominal Pain
Genitourinary: Reports Bleeding and Dark Urine
Physical Exam
-
General: Well Developed
HEENT: Normocephalic
Respiratory: Clear to Auscultation
Cardiac: Regular Rhythm
GI: Normal Bowel Sounds
Genito-urinary: Bloody Urine
Neuro: Awake, Alert, Oriented, AO x 3 and No Motor Deficits
Psych: Calm
Data Reviewed
-
Total Time Spent with Patient (in minutes): 56
Labs: Labs Reviewed by me (White count up to 13.3 from 0.4 yesterday/absolute neutrophils remain at 0.2/hemoglobin 9.1/creatinine stable at 0.9)
--- NOTE | 2024-01-15 07:25 | W.PN.URO.CBU ---
Today's Communication / Plan
-
Continue supportive care and pressor support per ICU
IV antibiotics per ID pending Cx S/S
Definitive outpatient laser lithotripsy in 3-4 weeks - plan for antibiotic course prior to intervention given infection history
D/w patient and daughter (Arlyn).
D/w Hospitalist.
Assessment / Plan
-
Urosepsis s/p ureteroscopy/stone manipulation/stent exchange 01/13
H/o E. Coli urosepsis and obstructive uropathy s/p right stent (12/05/23, [facility])
H/o E. Coli + enterobacter UTI
01/13: s/p right ureteroscopy/stone manipulation/stent exchange
WBC: 13.3 (previously neutropenic on ER admission)
Cr: WNL
UCx: pending
BCx x2: pending
On IV Ertapenem per ID
Diagnosis
-
Date of Service: January 15, 2024
-
Patient Diagnosis:
Urosepsis s/p ureteroscopy/stone manipulation/stent exchange 01/13
H/o E. Coli urosepsis and obstructive uropathy s/p right stent (12/05/23, [facility])
H/o E. Coli + enterobacter UTI
Post Op Day:
01/13: s/p right ureteroscopy/stone manipulation/stent exchange
Subjective
-
Sleepless night due to IMU transfer.
Levophed titrated up o/n to maintain MAP >65.
Voiding w/ functional incontinence.
Denies N/V this AM.
Objective
-
Vital Signs
Temp Pulse Resp BP Pulse Ox
99.9 F 100 26 109/47 97
01/15/24 07:36 01/15/24 06:00 01/15/24 06:00 01/15/24 06:00 01/15/24 06:41
Intake and Output
01/14/24 01/15/24 01/16/24
06:59 06:59 06:59
Intake Total 1145 / 1145
Balance 1145 / 1145
Intake:
Oral fluids 125 / 125
IV fluids (Total) 1000 / 1000
IV piggybacks 20 / 20
Other:
How many times incontinent 1
SATURATED amount urine
Laboratory Results
01/15/24 04:01
01/14/24 11:21
Physical Exam
-
General - well developed, well nourished, no acute distress
Abdomen - soft, non-tender, no CVAT
Genitalia - normal
Skin - UE/LE edema (secondary to third spacing)
Neuro - AOx3, no motor deficits
Extremities - no clubbing, no cyanosis, no edema
Care Review
Data Reviewed
Discussed with: Hospitalist, Nursing and Family
--- NOTE | 2024-01-15 07:29 | PTCARENOTE ---
assumed care of patient. SHe is alert , drowsy and tells me she doesn't 'feel very well'. facial flushing. Oral temp is 99.9. SBP 85 with LEvo infusing at 8mcg/min. NSR -ST at 99-110. Pt with oxygen at 2L via NC. Lungs decreased throughout pulse ox
98%. Generalized trace edema Pt reports urinary incontinence through the night. Dr. Jules on the unit and aware of pt assessment. Dr. Oates at bedside explaining plan of care to move the pt to ICU.
--- NOTE | 2024-01-15 08:08 | PTCARENOTE ---
Patient report given to BRINE SUPERVISOR and patient transferred via be to room 9010
[2024-01-15 08:30] LABS: Glucose - Point of Care 93 mg/dl (70-99)
--- NOTE | 2024-01-15 08:31 | CON.INTV ---
Consultation
Consultation Request
Date/Time Consultation Requested: 01/15/2024743
Date/Time Consultation Performed: 01/15/2024826
Requesting Provider: Dr. Jules
Performing Provider: Dr. Coates
Reason for Consultation: Sepsis
Medical History
-
Chief Complaint: Fever + fast heart rate
History of Present Illness:
73-year-old female with past medical history of DM type II, hyperlipidemia and history of nephrolithiasis who presents from surgical center after having a stent placed into the kidney due to nephrolithiasis. Postoperatively patient became feverish
with tachycardia, Tylenol was given as well as IV fluids and antibiotics and then was transferred here for further evaluation. Patient was recently hospitalized in [place], [place] in November 2023 when she developed right-sided obstructive
uropathy requiring stent placement and a course of antibiotics. She followed up with urology and today underwent stone manipulation with exchange of the stent. Postoperatively she developed fever, fast heart rate and rigors with temperature of
101.4 �F here in triage. BP was 118/74, SpO2 92% on room air, pulse rate 93 and respiratory rate 20. Initial labs showed leukopenia with WBC 0.4, anemia with Hb 9.2, and platelet count 133, creatinine was 0.9, chloride was 114, lactate was 2.5,
troponin negative at negative sign 0.012, urinalysis shows +2 leukocyte esterase and >100 urine RBC, and blood cultures/urine culture was collected. Patient given Levaquin in the ER as well as Toradol and was initially admitted to telemetry.
Infectious disease was consulted and meropenem was started. Patient was hypotensive and had been started on IV fluids and also required vasopressors with transfer to IMU. Patient has received a total of 4 L NS 05%. Due to continued hypotension
with worsening vasopressor requirements, patient transferred to the ICU for further care, and critical care services now consulted for additional management/recommendations.
Patient was seen and evaluated this AM. Blood Cx (+) for budding yeast as well as GNR, which later speciated into E. coli. She has been vomiting orange emesis, but she still has an appetite. She is on levophed at 8mcg/min. BP 95/80, HR 99, SpO2
95% on 2L/min, but she is also 99% on RA but wants the O2 as it makes her feel better. She currently denies headache, chest pain, abdominal pain, fevers or chills.
PMHx: DM type II, nephrolithiasis, history of UTI, hyperlipidemia, history of thyroid nodule
PSHx: Cataract surgery, section,
Past Medical History
Past Medical History: Other (Above as per HPI)
Past Surgical History: Other (Above as per HPI)
Social History
Tobacco: Non-smoker
Alcohol: None
Drug: None
Employment: Employed
Family History
Family History: Reviewed & Not Pertinent
Allergies / Home Medications
Allergies
Allergy/AdvReac Type Severity Reaction Status Date / Time
No Known Allergies Allergy Verified 10/06/23 00:12
Home Medications
�Medication �Instructions �Recorded �Confirmed �Last Taken �Type
glipizide 10 mg tablet 10 mg PO BID@0800,1700 Diabetes 10/05/23 01/14/24 01/13/24 History
naproxen sodium 220 mg tablet 220 mg PO DAILY Pain 10/05/23 01/14/24 01/13/24 History
(Aleve)
rosuvastatin 10 mg tablet 10 mg PO DAILY High Cholesterol 10/05/23 01/14/24 01/13/24 History
ibuprofen 125 mg-acetaminophen 250 1 tab PO TIDPRN PRN mild pain 01/14/24 01/14/24 7 Days Ago History
mg tablet (Advil Dual Action) ~01/07/24
tamsulosin 0.4 mg capsule 0.4 mg PO HS Urinary Issue 01/14/24 01/14/24 01/13/24 History
Review of Systems
-
History Source: Patient
All other systems: Negative unless noted
Vitals / Labs / Diagnostic Testing
Vital Signs
Temp Pulse Resp BP Pulse Ox
99.3 F 96 22 113/51 96
01/15/24 08:27 01/15/24 08:45 01/15/24 08:45 01/15/24 08:42 01/15/24 08:45
Lab Data
01/15/24 04:01
01/14/24 11:21
Diagnostic Testing:
Physical Exam
-
HEENT: Normocephalic and Anicteric
Cardiovascular: S1/S2 and Peripheral Edema (negative)
Respiratory: Wheeze (negative), Rales (Alleghany bilaterally (R >L)), Rhonchi (negative) and Non-Labored Respirations
GI: Soft, Distended (Abdominal obesity), Non Tender and Normal Bowel Sounds
Neurology: Awake and Alert
Skin: Warm and Dry
General: Comfortable, Fever (n) and Chills (n)
Assessment
-
Assessment: 73-year-old female with past medical history of DM type II, hyperlipidemia and history of nephrolithiasis who presents from surgical center after having a stent placed into the kidney due to nephrolithiasis. Postoperatively patient
became feverish with tachycardia, Tylenol was given as well as IV fluids and antibiotics and then was transferred here for further evaluation. Patient was recently hospitalized in [place], [place] in November 2023 when she developed right-sided
obstructive uropathy requiring stent placement and a course of antibiotics. She followed up with urology and today underwent stone manipulation with exchange of the stent. Postoperatively she developed fever, fast heart rate and rigors with
temperature of 101.4 �F here in triage. BP was 118/74, SpO2 92% on room air, pulse rate 93 and respiratory rate 20. Initial labs showed leukopenia with WBC 0.4, anemia with Hb 9.2, and platelet count 133, creatinine was 0.9, chloride was 114,
lactate was 2.5, troponin negative at negative sign 0.012, urinalysis shows +2 leukocyte esterase and >100 urine RBC, and blood cultures/urine culture was collected. Patient given Levaquin in the ER as well as Toradol and was initially admitted to
telemetry. Infectious disease was consulted and meropenem was started. Patient was hypotensive and had been started on IV fluids and also required vasopressors with transfer to IMU. Patient has received a total of 4 L NS 05%. Due to continued
hypotension with worsening vasopressor requirements, patient transferred to the ICU for further care, and critical care services now consulted for additional management/recommendations.
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
Impression:
#Septic shock due to transient bacteremia s/p kidney stone manipulation and stent exchange
#E. coli bacteremia + fungemia likely with Shama
#Lactic acidosis due to above
#Acute respiratory failure with hypoxia likely due to sepsis with acute organ dysfunction
#Acute kidney injury
#None anion gap metabolic acidosis due to lactic acidosis + acute kidney injury
#Abnormal urinalysis with elevated leukocyte esterase suspicious for UTI
#Anemia (baseline ~12.5)
#Thrombocytopenia (baseline ~150-200) - this is likely due to sepsis
#DM type II
#History of UTI due to E. coli (jacome-sensitive) + Enterobacter cloacae #MDR)
Plan:
- Continue vasopressors with levophed and titrate to maintain MAP>65
- Patient has received total of 4L crystalloids since admission - give additional IVF but use cautiously as she is at risk for volume overload if she gets an excessive amount; considering she has been vomiting today, I am confident that she will
benefit from more maitnenance fluids - will give LR @ 100cc/hr until tomorrow AM, then will re-assess
- Encourage PO intake as tolerated with prn zofran (monitor QTc - 440ms on EKG from 01/14/2024)
- ABx as per ID --> On meropenem (started 01/14/2024) s/p levaquin x 1 dose in ER
- Follow up infectious workup with blood and urine Cx (both collected 01/14/2024)
- Blood Cx (1 of 2) from 01/14/2024 is now growing E. coli; both Bcx have grown budding yeasts, still awaiting species
- Consult ophthalmology given budding yeast seen in blood culture
- Maintain SpO2 >90-94% with supplemental O2; wean to off if possible as it seems to be on currently for patient comfort
- Obtain CXR
- prn nebulized bronchodilators
- Incentive spirometer encouraged
- Trend serum HCO3 and check venous blood gas to check pH --> if pH<7.2 or if serum HCO3 continues to decline towards 10 or less, will start bicarb gtt
- Trend lactate level until <2mmol/L
- Trend Hb and plt count and transfuse to keep Hb>7, plt>20k
- Replete electrolytes with K>4, Mg>2
- Maintain euglycemia with goal BG 140-180
- Stress ulcer ppx: No indication currently
- DVT ppx
Critical care statement: A total of 40 minutes of critical care time was provided for this patient today. This includes management of unstable vital signs, evaluation of the patient at bedside, reviewing the patient's pertinent medical records
including radiographs, microbiology, laboratory evaluations, and discussion with primary team, consultants, pharmacy, nutrition, physical therapy, case management, charge nurse, critical care nursing, and respiratory therapy.
Data:
CXR 01-15-2024: Poor inspiratory effort. Probable mild generalized atelectasis. Cannot entirely exclude acute pneumonitis, though no focal dense consolidation is identified.
[2024-01-15] MEDS: NOVOLOG FLEXPEN-LOW RESISTANCE SC ×3 (09:13→17:19)
[2024-01-15] MEDS: CRESTOR PO (09:13)
[2024-01-15 09:47] LABS: Glycohemoglobin (HgbA1c) 6.8 % (4.0-5.6)
[2024-01-15 09:53] LABS: Blood Urea Nitrogen 45 mg/dl (7-17); Calcium 7.3 mg/dl (8.4-10.2); Carbon Dioxide 14 mmol/L (22-30); Chloride 114 mmol/L (98-107); Estimated Creatinine Clearance 26 ml/min; Glucose 106 mg/dl (70-99); Sodium 139 mmol/L (135-145); eGFR 27.71
[2024-01-15 09:58] LABS: INR 1.69; PT 19.7 Sec (11.4-14.6)
[2024-01-15 09:59] LABS: APTT 55.2 Sec (23.4-35.0)
--- NOTE | 2024-01-15 10:41 | W.PN.ID1 ---
Date of Service
Date of Service: January 15, 2024
Today's Communication
Start micafungin.
Continue meropenem.
Assessment / Plan
# Fungemia- source
# Septic shock immediately post urological procedure stone manipulation/R ureter stent exhange
-Fever improving.
- neutropenia due to sepsis, now leukocytosis
-Review of recent urine culture grew E. coli and Enterobacter, for which the Enterobacter was resistant to cefepime.
-Continue meropenem pending Ucx.
- Start micafungin
-Repeat blood cx's in am
-Trend vitals and white count.
#Additional Past Medical History:
DM2
Macular degeneration
Nephrolithiasis
HLD
thyroid nodule
Chief Complaint
-: Clinical Sepsis, UTI and Other (Fungemia)
Subjective / Review of Systems
More alert today.
No flank pain.
No acute vision change.
Vital Signs / Physical Exam
Vital Signs
Vital Signs
Temp Pulse Resp BP Pulse Ox
99.3 F 100 14 93/57 96
01/15/24 08:27 01/15/24 10:15 01/15/24 10:15 01/15/24 10:00 01/15/24 10:00
Physical Exam
Constitutional: No Acute Distress and Comfortable
Cardiovascular: S1/S2 and Other (tachy)
Pulmonary: Clear
Gastrointestinal: Soft, Non Tender, Non Distended and Normal Bowel Sounds
Genito-Urinary: Negative CVA Tenderness
Extremities: Negative Edema
Neurological: AO x 3
Objective Data
Lab Data
Lab Results
01/15/24 04:01
01/15/24 09:23
PT 19.7 Sec (11.4-14.6) H 01/15/24 09:23
INR 1.69 01/15/24 09:23
APTT 55.2 Sec (23.4-35.0) H 01/15/24 09:23
Estimated Creat Clear 26 ml/min 01/15/24 09:23
Lactic Acid 3.6 mmol/L (0.7-2.0) H 01/15/24 04:00
Total Bilirubin Cancelled 01/14/24 11:21
AST Cancelled 01/14/24 11:21
ALT Cancelled 01/14/24 11:21
Alkaline Phosphatase Cancelled 01/14/24 11:21
Most recent labs reviewed.
Micro Results:
01/14/24 11:29 Blood Culture - Preliminary
Blood/Venous Positive culture in progress
Gram Stain - Preliminary
01/14/24 11:21 Blood Culture - Pending
Blood/Venous
01/14/24 11:34 Urine Culture - Pending
Urine
Care Review
Plan reviewed with: Physician (Dr. Jules)
[2024-01-15] MEDS: MYCAMINE 105 MG IV (11:33)
[2024-01-15 11:48] LABS: Hematocrit 31.3 % (37.0-47.0); Hemoglobin 10.1 g/dL (12.0-16.0); Mean Corp Hgb Conc. 32.3 g/dL (33.0-37.0); Mean Corpuscular Hgb 29.9 pg (27.0-31.0); Mean Corpuscular Volume 92.6 fL (81.0-99.0); Mean Platelet Volume 10.7 fL (7.4-10.4); Nucleated Red Blood Cells % 0 %; Platelet Count 129 10^3/uL (130-400); Red Blood Cell Count 3.38 10^6/uL (4.20-5.40); Red Cell Dist. Width 14.6 % (11.5-14.5); White Blood Cell Count 12.3 10^3/uL (4.8-10.8)
[2024-01-15 12:03] LABS: Lactic Acid 3.2 mmol/L (0.7-2.0)
[2024-01-15 12:19] LABS: Glucose - Point of Care 104 mg/dl (70-99)
[2024-01-15 12:28] LABS: Absolute Neutrophils -Man Diff 11.5 10^3/uL (1.4-6.5); Band Neutrophils 32 % (0-3); Lymphocytes 2 % (20-51); Monocytes 3 % (2-9); Segmented Neutrophils 62 % (42-75)
[2024-01-15 12:29] LABS: Metamyelocytes 1 % (-); Normal RBC Morphology Yes; Platelets Checked YES
[2024-01-15 12:30] LABS: Total Cells Counted 100
--- NOTE | 2024-01-15 12:59 | PTCARENOTE ---
Pt received to ICU bed 3371 from IMU at 0730 on Levophed at 8 mcg/min. Just weaned to 6mcg/min.
+blood cx reported to . Repeat bld cx sent and new order for Micafungin.
Pt AAOx3. Tylenol given for c/o h/a.
Sinus rhythm to sinus tach.
2L O2 on for comfort. SpO2 96-100%.
Pt ate soup today then vomited. PRN Zofran given. No BM.
Urine orange via purewick.
All other assessments unchanged.
[2024-01-15] MEDS: LR 1000 IV (14:21)
--- NOTE | 2024-01-15 15:11 | CM ---
CM following re: discharge planning.
Reviewed pt's chart, met with pt.
Pt is a 73 year old female, admitted with primary dx of Sepsis.
Pt rapports she lives with 2SH, 2 steps to enter, has 2 supportive children. Pt described herself as independent in all areas [employer]ER. No DME, VN or SNF history.
PCP: Alex Richter
Pharmacy: [facility]
D/C plan: home with anticipated no needs. Family to transport at discharge.
CM will follow with discharge plan updates as hospitalization progresses
[2024-01-15 17:17] LABS: Glucose - Point of Care 120 mg/dl (70-99)
[2024-01-15] MEDS: HEPARIN 5000 UNITS SC (17:19)
--- NOTE | 2024-01-15 17:40 | PTCARENOTE ---
Pt OOB to BSC with RN. Pt became dizzy with unsteady gait. Assisted back to bed.
Remains on Levophed gtt.
Just order dinner. Denies nausea at this time.
All other assessments unchanged.
[2024-01-15 17:46] LABS: Venous Blood Gas B.E. -7.2 mmol/L (-4 to +4); Venous Blood Gas HCO3 17.8 mmol/L (22-27); Venous Blood Gas O2 Sat % 69.6 %; Venous Blood Gas pCO2 33 mmHg (35-48); Venous Blood Gas pH 7.34 (7.32-7.43); Venous Blood Gas pO2 39 mmHg (30-50)
[2024-01-15 18:02] LABS: Lactic Acid 2.2 mmol/L (0.7-2.0)
[2024-01-15 18:12] LABS: ALT (SGPT) 29 U/L (0-35); AST (SGOT) 36 U/L (14-36); Albumin 2.6 g/dl (3.5-5.0); Alkaline Phosphatase 62 U/L (38-126); Blood Urea Nitrogen 47 mg/dl (7-17); Calcium 7.2 mg/dl (8.4-10.2); Carbon Dioxide 13 mmol/L (22-30); Chloride 116 mmol/L (98-107); Estimated Creatinine Clearance 28 ml/min; Glucose 120 mg/dl (70-99); Potassium 4.8 mmol/L (3.5-5.1); Sodium 137 mmol/L (135-145); Total Bilirubin 1.9 mg/dl (0.2-1.3); Total Protein 5.4 g/dl (6.3-8.2); eGFR 29.57
[2024-01-15] MEDS: CALCIUM CHLORIDE 10% SYRINGE 60 MG IV (19:54)
[2024-01-15] MEDS: SODIUM BICARBONATE 1150 MEQ IV (19:55)
--- NOTE | 2024-01-15 20:30 | PTCARENOTE ---
rec`d pt at 1900 laying in bed. AAOx3. SR-ST on monitor. trace edema. rt dual luman picc, running with levo and bicarb. RA during the day, 2L HS. clear lung sounds. satting between 90-97%. N/V after food and drink. prn zofran given. purwick
draining orange urine. lactic acid followed. call elizabeth in reach, safe environment maintained.
[2024-01-15 22:54] LABS: Lactic Acid 1.9 mmol/L (0.7-2.0)
[2024-01-16] VITALS (49 sets, daily range): BP systolic 74–162; BP diastolic 42–116; BMI 37.1; BMI 37.5
--- NOTE | 2024-01-16 | PTCARENOTE ---
pt reassessed, no changes in pt assessment.
[2024-01-16] MEDS: HEPARIN 5000 UNITS SC ×4 (00:42→23:51)
--- NOTE | 2024-01-16 05:02 | PTCARENOTE ---
levo titrated down and is now off.
[2024-01-16 05:14] LABS: Hematocrit 27.6 % (37.0-47.0); Hemoglobin 8.8 g/dL (12.0-16.0); Mean Corp Hgb Conc. 31.9 g/dL (33.0-37.0); Mean Corpuscular Hgb 29.6 pg (27.0-31.0); Mean Corpuscular Volume 92.9 fL (81.0-99.0); Mean Platelet Volume 10.7 fL (7.4-10.4); Platelet Count 99 10^3/uL (130-400); Red Blood Cell Count 2.97 10^6/uL (4.20-5.40); Red Cell Dist. Width 14.8 % (11.5-14.5); White Blood Cell Count 9.3 10^3/uL (4.8-10.8)
[2024-01-16 05:29] LABS: ALT (SGPT) 30 U/L (0-35); AST (SGOT) 35 U/L (14-36); Albumin 2.5 g/dl (3.5-5.0); Alkaline Phosphatase 82 U/L (38-126); Blood Urea Nitrogen 50 mg/dl (7-17); Carbon Dioxide 19 mmol/L (22-30); Chloride 111 mmol/L (98-107); Estimated Creatinine Clearance 29 ml/min; Glucose 98 mg/dl (70-99); Magnesium 1.7 mg/dl (1.6-2.3); Phosphorus 3.9 mg/dl (2.5-4.5); Potassium 4.7 mmol/L (3.5-5.1); Sodium 139 mmol/L (135-145); Total Bilirubin 1.6 mg/dl (0.2-1.3); Total Protein 5.6 g/dl (6.3-8.2); eGFR 29.57
[2024-01-16] MEDS: MERREM 500 MG IV ×3 (06:03→21:04)
[2024-01-16] MEDS: STERILE WATER FOR INJECTION 10 ML IV ×3 (06:04→21:05)
[2024-01-16] MEDS: CRESTOR PO (07:24)
--- NOTE | 2024-01-16 07:30 | PTCARENOTE ---
Received patient from welder 2nd shift. Patient is somnolent, oriented to place and self. Is confused at times but is waking up. Her nasal cannula was replaced, was next to her and covered in emesis. Washed patient and changed all bed sheets. Patient
only 87% on room air. now saturating in high 90s on 3L. Patient is in a sinus rhythm with generalized edema. Will make patient NPO and notify physician. Patient has been vomiting after eating or drinking small amounts. Purewick was in place for
urine, but incontinent of stool and will remove. Skin is otherwise intact. Bicarb gtt infusing through right double lumen PICC. Will review orders, bed alarm on and bed is in lowest position.
--- NOTE | 2024-01-16 07:53 | W.PN.HOSP.TC ---
Addendum entered and electronically signed by Tahlia Garcia MD 01/16/24 08:32:
INR 1.6, with dropping platelets, concern for early DIC....check pt/ptt/fibrinogen
pt also with diarrhea so HCO3 losses in stool could contribute to NON AGAP acidosis
check EKG for QTc and check troponins
make NPO for now
Original Note:
Today's Communication/Plan
-
start bicarb drip
consider renal consult
consider HIT assay with dropping platelets
treat nausea/vomiting
start IV PPI
follow labs
follow cultures
cont meropenem and micafungin (eval for cause of nausea)
Assessment / Plan
Assessment / Plan
pt is a 73 year old female
septic shock with neutropenia of sepsis (resolved) due to Post ureteroscopy sepsis (History of stent exchanged and replaced 2 years ago and Recent stent placement in [place] 12/2023)--requiring pressors, wean as able--urine culture with E. coli,
blood culture positive for budding yeast, repeat cultures pending--apprec ID--cont meropenem/micafungin--apprec urology s/p lithotripsy surgery and stent exchange--cont flomax
acute hypoxemic resp failure due to sepsis--on 2L O2 NC with sats 97%--wean as able--consider gentle diuresis--consider repeat CXR
metabolic acidosis--AGAP 9--likely not sepsis or DKA--pt has been vomiting so could be GI losses (or iatrogenic from IVF administration)--consider bicarb drip
weight gain--likely iatrogenic from IVF administration from sepsis--consider gentle diuresis but with OLGA--may need renal consult
Anemia likely iron deficiency anemia--No active bleeding-- ferritin, folate, TIBC show anemia of chronic disease--Continue to monitor
thrombocytopenia -- platelet count dropping since admission--likely due to sepsis but pt on SC heparin--consider HIT assay
OLGA -- creat bumped from admission 0.9 to 1.8--weights up as well--
hypocalcemia--corrected for albumin is 9.2--hold on repletion
Type 2 diabetes--Sliding scale--Carb controlled diet
Hyperlipidemia--Statin continued
DVT prophylaxis--heparin subcu
CODE STATUS--Full code
Total Critical Care Time 38 minutes. I was immediately available to the patient and staff. I personally examined, reviewed labs, diagnostic images/reports, interpretations, treatment plans, discussed patient care with other providers and family
or caregivers (if patient is unable to make decisions), entered orders as appropriate and documented the medical record.
Anticipated Discharge: > 48 hours
Subjective/Interval History
-
Date of Service: January 16, 2024
pt cold--nursing reports hypoxic and coughing
Objective Data
-
Labs:
Laboratory Results
01/16/24
04:52
WBC 9.3
Hgb 8.8 L
Hct 27.6 L
Plt Count 99 L D
Sodium 139
Potassium 4.7
Chloride 111 H
Carbon Dioxide 19 L
BUN 50 H
Creatinine 1.8 H
Glucose 98
Calcium 8.0 L
Total Bilirubin 1.6 H
AST 35
ALT 30
Alkaline Phosphatase 82
Vital Signs:
max temp for 24 hours
01/15/24
15:11
Temp 99.9 F
Vital Signs
Temp Pulse Resp BP Pulse Ox
98.9 F 103 20 119/52 97
01/16/24 03:22 01/16/24 04:30 01/16/24 04:30 01/16/24 04:30 01/16/24 04:30
I&O
01/15/24 01/16/24 01/17/24
06:59 06:59 06:59
Intake Total 1145 / 1145 2237.5 / 2237.5
Output Total 1000 / 1000
Balance 1145 / 1145 1237.5 / 1237.5
Review of Systems
-
All other systems: Reviewed and negative
Constitutional: Reports Chills
Neuro: Reports Headache
Physical Exam
-
General: Well Developed, Well Nourished and No Apparent Distress
HEENT: Normocephalic, Atraumatic and Oxygen (holds breath when talking)
Respiratory: Clear to Auscultation; Negative Wheezes, Rales, Rhonchi or Crackles
Cardiac: Regular Rhythm and S1/S2; Negative Murmur
GI: Soft, Nontender, Nondistended and Normal Bowel Sounds
Musculoskeletal: No Clubbing and No Cyanosis; Negative No Edema (2+ LE edema bilaterally)
Skin: Warm
Neuro: Awake and Alert
Psych: Calm
--- NOTE | 2024-01-16 08:00 | PTCARENOTE ---
Patient grossly incontinent of stool, Purewick removed.
[2024-01-16] MEDS: NOVOLOG FLEXPEN-LOW RESISTANCE SC ×3 (08:05→16:58)
[2024-01-16 08:21] LABS: Glucose - Point of Care 86 mg/dl (70-99)
[2024-01-16] MEDS: SODIUM BICARBONATE 1150 MEQ IV (08:44)
[2024-01-16] MEDS: PROTONIX IV 40 MG IV (08:58)
[2024-01-16] MEDS: NSS (PRESERVATIVE FREE) 10 ML IV (08:58)
--- NOTE | 2024-01-16 09:12 | W.PN.INTV ---
Addendum entered and electronically signed by Mickey Coates MD 01/17/24 14:51:
Physical exam for this encounter on 01/16/2024:
HEENT: Normocephalic and Anicteric
Cardiovascular: S1/S2 and Peripheral Edema (negative)
Respiratory: Wheeze (negative), Rales (bilaterally), Rhonchi (negative) and Non-Labored Respirations
GI: Soft, Distended (Abdominal obesity), Non Tender and Normal Bowel Sounds
Neurology: Awake and Alert, following commands
Skin: Warm and Dry
General: Comfortable, Fever (n) and Chills (n)
Original Note:
Today's Communication / Plan
Recommendations
Trend troponin
Stop IVF as she is now becoming volume overloaded
Abx as per ID
Maintain SpO2 >90-94% with supplemental O2
Off vasopressors and lactate normalized
Trend Hb and plt, both low from sepsis; no concern for CARLOS (4T score:1)
Continue to monitor patient closely. She has been off vasopressors since 01/15/2024. Will consider downgrading to IMU later today if she remains stable. [facility] Certified Concierge/pulmonary service will continue to briefly follow along while she remains in ICU.
Assessment
-
Assessment: 73-year-old female with past medical history of DM type II, hyperlipidemia and history of nephrolithiasis who presents from surgical center after having a stent placed into the kidney due to nephrolithiasis. Postoperatively patient
became feverish with tachycardia, Tylenol was given as well as IV fluids and antibiotics and then was transferred here for further evaluation. Patient was recently hospitalized in [place], [place] in November 2023 when she developed right-sided
obstructive uropathy requiring stent placement and a course of antibiotics. She followed up with urology and today underwent stone manipulation with exchange of the stent. Postoperatively she developed fever, fast heart rate and rigors with
temperature of 101.4 �F here in triage. BP was 118/74, SpO2 92% on room air, pulse rate 93 and respiratory rate 20. Initial labs showed leukopenia with WBC 0.4, anemia with Hb 9.2, and platelet count 133, creatinine was 0.9, chloride was 114,
lactate was 2.5, troponin negative at negative sign 0.012, urinalysis shows +2 leukocyte esterase and >100 urine RBC, and blood cultures/urine culture was collected. Patient given Levaquin in the ER as well as Toradol and was initially admitted to
telemetry. Infectious disease was consulted and meropenem was started. Patient was hypotensive and had been started on IV fluids and also required vasopressors with transfer to IMU. Patient has received a total of 4 L NS 05%. Due to continued
hypotension with worsening vasopressor requirements, patient transferred to the ICU for further care, and critical care services now consulted for additional management/recommendations.
Chronic conditions [facility]URSE EMERGENCY RO[facility]: DM type II, nephrolithiasis, history of UTI, hyperlipidemia, history of thyroid nodule
Impression:
#Septic shock due to transient bacteremia s/p kidney stone manipulation and stent exchange - shock state now resolved
#E. coli bacteremia + fungemia due to yeast
#Lactic acidosis due to above - lactate now normalized
#Acute respiratory failure with hypoxia likely due to sepsis with acute organ dysfunction
#Acute kidney injury (Cr baseline 0.9)
#Non-anion gap metabolic acidosis due to lactic acidosis + acute kidney injury
#Elevated troponin likely due to demand ischemia with type II CT
#Abnormal urinalysis with elevated leukocyte esterase suspicious for UTI
#Anemia (baseline ~12.5)
#Thrombocytopenia (baseline ~150-200) - this is likely due to sepsis
#DM type II
#History of UTI due to E. coli (jacome-sensitive) + Enterobacter cloacae #MDR)
Plan:
- Patient has been off of vasopressors since 01/15/2024 and is currently hemodynamically stable
- Maintain MAP>65
- Patient has received total of 4L crystalloids since admission + maintenance IVF on 01/14 with LR; she also received bicarb gtt overnight which is now off; of note, her VBG on 01/14 showed a normal pH (corrected pH of 7.38) ---> b considering patient
CXR this morning shows evidence of pulmonary vascular congestion, stop IV fluids and consider IV diuresis once Cr improves
- Encourage PO intake as tolerated with prn zofran (monitor QTc - 440ms on EKG from 01/14/2024)
- ABx as per ID --> On meropenem (started 01/14/2024), micafungin (started 01/14) s/p levaquin x 1 dose in ER
- Follow up infectious workup with blood and urine Cx (both collected 01/14/2024)
- Blood Cx (1 of 2) from 01/14/2024 is now growing E. coli; both Bcx have grown budding yeasts, still awaiting species
- Discussed case with ophthalmology with Dr. Narayanan on 01/15/2024, and there is no indication for dilated eye exam at this time. Patient can follow-up with her home theater specialist as an outpatient, which she sees due to a history of blurry vision from
suspected diabetic retinopathy
- Maintain SpO2 >90-94% with supplemental O2; wean to off if possible as it seems to be on currently for patient comfort
- prn nebulized bronchodilators
- Incentive spirometer encouraged
- Trend serum HCO3
- Trend troponin until begins to downtrend
- Trend Hb and plt count and transfuse to keep Hb>7, plt>20k
- 4T score is 1 --> low probability of CARLOS; no need to send CARLOS panel at this time
- Replete electrolytes with K>4, Mg>2
- Maintain euglycemia with goal BG 140-180
- Stress ulcer ppx: No indication currently
- DVT ppx
Continue to monitor patient closely. She has been off vasopressors since 01/15/2024. Will consider downgrading to IMU later today if she remains stable. [facility] Certified Concierge/pulmonary service will continue to briefly follow along while she remains in ICU.
Total time spent today was 75 minutes for this encounter. Time includes reviewing laboratory test/imaging results, reviewing pertinent medical records, obtaining and reviewing medical history, performing an appropriate exam, ordering medications,
tests and procedures. Time also includes documentation of this encounter, coordinating patient care and communicating with other healthcare professionals. Total time does not include separately billed tests performed on this date of service.
Data:
CXR 01-16-2024:
1. Mild acute interstitial and alveolar cardiogenic pulmonary edema.
2. Mildly decreased bilateral lung volumes.
3. Mild cardiomegaly.
4. Right upper extremity PICC line in place.
CXR 01-15-2024: Poor inspiratory effort. Probable mild generalized atelectasis. Cannot entirely exclude acute pneumonitis, though no focal dense consolidation is identified.
Subjective Dataa
Subjective Data
Date of Service:
Date of Service: January 16, 2024
Objective Data
Data Reviewed
Vital Signs / I&O / Oxygen:
Vital Signs
Temp Pulse Resp BP Pulse Ox
99.0 F 103 20 119/52 97
01/16/24 07:00 01/16/24 04:30 01/16/24 04:30 01/16/24 04:30 01/16/24 04:30
Intake and Output
01/15/24 01/16/24 01/17/24
06:59 06:59 06:59
Intake Total 1145 / 1145 2237.5 / 2337.5 220 / 220
Output Total 1000 / 1600 725 / 725
Balance 1145 / 1145 1237.5 / 737.5 -505 / -505
SaO2 97
Nasal Cannula flow liters per 2
minute
Labs/Micro/Reports
Lab Data
01/16/24 04:52
01/16/24 04:52
Microbiology
01/14/24 11:29 Blood/Venous Blood Culture - Preliminary
Yeast
01/14/24 11:29 Blood/Venous Gram Stain - Preliminary
01/14/24 11:21 Blood/Venous Blood Culture - Preliminary
Escherichia coli
Yeast
01/14/24 11:21 Blood/Venous Gram Stain - Final
01/14/24 11:34 Urine Urine Culture - Final
--- NOTE | 2024-01-16 09:32 | W.CON.NEPH ---
Consultation
-
Date/Time Consultation Requested: 01/16/24 0820
Date/Time Consultation Performed: 01/16/24 1015
Requesting Provider: Thalia Herrera
Performing Provider: Aurelia Ku
Reason for Consultation: OLGA
Medical History
-
Chief Complaint: fever
History of Present Illness:
73-year-old female who is a type II diabetic on Glipizide, farxiga, HLD on statin, nephrolithiasis recent obst uropathy, sepsis underwent an urgent stent placement in [facility] in late November and completed antibiotic. She underwent a stone
manipulation stent exchange by urology on 01/13 and post procedure she developed fever and chills and a murky urine which lead presentation of sepsis to ER. She found to be in septic shock requiring pressors. On admit her cr was 0.9 however cr up
trended next day to 1.9 and remains same despite IVF hence nephrology consulted. She has fungemia and e coli bacteremia -abx managed by ID. She is aware of small left kidney from before but no real kidney dysfunction that she is aware of. She has
ongoing nausea with spitting bile and made NPO at this time. Her CXR shows mild congestion. She continued on IVF for sepsis, currently she is on 3lit of NC. Goins catheter was placed this am and non oliguric.
Past Medical History
Urine stone with hydronephrosis
Urinary tract infection
Renal stones
Thyroid nodule
Type 2 diabetes
Hypertriglyceridemia
Past Surgical History: Other (ureteral stent)
Social History
Tobacco: Non-Smoker
Alcohol: None
Drug: None
Employment: Employed
Family History
no CKD
Family History: Not Pertinent
Allergies / Home Medications
Allergy/AdvReac Type Severity Reaction Status Date / Time
No Known Allergies Allergy Verified 10/06/23 00:12
�Medication �Instructions �Recorded �Confirmed �Type
glipizide 10 mg tablet 10 mg PO BID@0800,1700 Diabetes 10/05/23 01/14/24 History
naproxen sodium 220 mg tablet 220 mg PO DAILY Pain 10/05/23 01/14/24 History
(Aleve)
rosuvastatin 10 mg tablet 10 mg PO DAILY High Cholesterol 10/05/23 01/14/24 History
ibuprofen 125 mg-acetaminophen 250 1 tab PO TIDPRN PRN mild pain 01/14/24 01/14/24 History
mg tablet (Advil Dual Action)
tamsulosin 0.4 mg capsule 0.4 mg PO HS Urinary Issue 01/14/24 01/14/24 History
Review of Systems
-
All complete 12 point ROS have been inquired and found negative other than stated in HPI
Physical Exam
Vital Signs
Vital Signs
Temp Pulse Resp BP Pulse Ox
99.0 F 103 20 119/52 97
01/16/24 07:00 01/16/24 04:30 01/16/24 04:30 01/16/24 04:30 01/16/24 04:30
Lab Results
WBC 9.3 10^3/uL (4.8-10.8) 01/16/24 04:52
RBC 2.97 10^6/uL (4.20-5.40) L 01/16/24 04:52
Hgb 8.8 g/dL (12.0-16.0) L 01/16/24 04:52
Hct 27.6 % (37.0-47.0) L 01/16/24 04:52
Plt Count 99 10^3/uL (130-400) L D 01/16/24 04:52
Sodium 139 mmol/L (135-145) 01/16/24 04:52
Potassium 4.7 mmol/L (3.5-5.1) 01/16/24 04:52
Chloride 111 mmol/L (98-107) H 01/16/24 04:52
Carbon Dioxide 19 mmol/L (22-30) L 01/16/24 04:52
BUN 50 mg/dl (7-17) H 01/16/24 04:52
Creatinine 1.8 mg/dL (0.6-1.0) H 01/16/24 04:52
eGFR 29.57 01/16/24 04:52
Glucose 98 mg/dl (70-99) 01/16/24 04:52
Calcium 8.0 mg/dl (8.4-10.2) L 01/16/24 04:52
Phosphorus 3.9 mg/dl (2.5-4.5) 01/16/24 04:52
Albumin 2.5 g/dl (3.5-5.0) L 01/16/24 04:52
CXR today:
IMPRESSION:
1. Mild acute interstitial and alveolar cardiogenic pulmonary edema.
2. Mildly decreased bilateral lung volumes.
3. Mild cardiomegaly.
4. Right upper extremity PICC line in place.
Physical Exam
General: Awake, Alert, Oriented, AOx3, No Distress and Nontoxic
HEENT: EOMI, Anicteric and Neck Supple
Respiratory: Normal Excursion, Nonlabored Respirations and Other (decreased)
Cardiac: S1/S2 and Regular Rate/Rhythm
Breast: Deferred by me
Abdomen: Soft, Nontender and Nondistended
Musculoskeletal: No Cyanosis and No Edema
Skin: No Rash, Warm and Dry
Neuro: Nonfocal/Grossly Intact
Psych: Mood/afflect pleasant and Appropriate
Data Reviewed
-
Radiology: Image Personally Visualized and interpreted and Discussed with Patient
Labs: Labs Reviewed by me, Discussed with Nurse and Discussed with Patient
Assessment/Plan
-
IMP:
OLGA-baseline cr 0.9
(US small left kidney 09/2023)
septic shock
Fungemia
E coli bacteremia
Non gap met acidosis
Neutropenia-resolved
s/Post ureteroscopy sepsis (History of stent exchanged and replaced 01/13 and Recent stent placement in [place] 12/2023)
acute hypoxemic resp failure
Anemia
thrombocytopenia
hypocalcemia-corrected normal for alb
Type 2 diabetes
Hyperlipidemia
Thyroid nodule
Plan;
A/w sepsis post urological procedure
septic shock-fungemia, E coli bacteremia-ID follows
OLGA-in setting of sepsis, UA with hematuria sample post procedure-check Fena
cr no change seem possible ATN, unlikely AIN with early rise of cr
non oliguric with goins, consider renal US(small left kidney in [place] 09/2023)
non gap met acidosis improving with bicarb IVF
wt is increasing hence d/c IVF
CXR also mild congestion and high BNP, prn lasix
BP stable off pressors
dose meds renally
follow h/h and plt, decreasing-adequate fe stores
avoid nephrotoxins
d/w pt and nursing
d.w ID
[2024-01-16 09:48] LABS: NT-proBNP 10200 pg/ml
[2024-01-16] MEDS: MYCAMINE 105 MG IV (10:29)
--- NOTE | 2024-01-16 10:48 | W.PN.ID1 ---
Date of Service
Date of Service: January 16, 2024
Today's Communication
Continue meropenem (d3) and micafungin (d2)
Assessment / Plan
# Fungemia- source
# E. coli bacteremia - source
# a/p Septic shock immediately post urological procedure stone manipulation/R ureter stent exhange
-Fever resolved
- Continue meropenem (d3) and micafungin (d2)
-Follow Repeat blood cx's
#Additional Past Medical History:
DM2
Macular degeneration
Nephrolithiasis
HLD
thyroid nodule
Chief Complaint
-: Clinical Sepsis, UTI and Other (Fungemia)
Subjective / Review of Systems
Feels same.
Vital Signs / Physical Exam
Vital Signs
Vital Signs
Temp Pulse Resp BP Pulse Ox
99.0 F 103 20 119/52 97
01/16/24 07:00 01/16/24 04:30 01/16/24 04:30 01/16/24 04:30 01/16/24 04:30
Physical Exam
Constitutional: No Acute Distress
Cardiovascular: Regular Rate and S1/S2
Pulmonary: Clear
Gastrointestinal: Soft and Non Tender
Genito-Urinary: Negative CVA Tenderness
Neurological: AO x 3
Objective Data
Lab Data
Lab Results
01/16/24 04:52
01/16/24 04:52
PT 19.7 Sec (11.4-14.6) H 01/15/24 09:23
INR 1.69 01/15/24 09:23
APTT 55.2 Sec (23.4-35.0) H 01/15/24 09:23
Estimated Creat Clear 29 ml/min 01/16/24 04:52
Lactic Acid 1.9 mmol/L (0.7-2.0) 01/15/24 22:37
Total Bilirubin 1.6 mg/dl (0.2-1.3) H 01/16/24 04:52
AST 35 U/L (14-36) 01/16/24 04:52
ALT 30 U/L (0-35) 01/16/24 04:52
Alkaline Phosphatase 82 U/L (38-126) 01/16/24 04:52
Most recent labs reviewed.
Micro Results:
01/14/24 11:29 Blood Culture - Preliminary
Blood/Venous Yeast
Gram Stain - Preliminary
01/14/24 11:22 Fungus Mold Identification - Pending
Blood/Venous
01/14/24 11:21 Blood Culture - Preliminary
Blood/Venous Escherichia coli
Yeast
Gram Stain - Final
01/16/24 04:52 Blood Culture - Pending
Blood/Venous
01/16/24 04:52 Blood Culture - Pending
Blood/Venous
01/14/24 11:34 Urine Culture - Final
Urine
01/15/24 11:39 Blood Culture - Pending
Blood/Venous
--- NOTE | 2024-01-16 12:13 | CON.CAR ---
Addendum entered and electronically signed by Mario Alberto Foy MD 01/16/24 17:26:
I saw and examined the patient.
The Leasing Machine Tender's note was reviewed and I agree with the note.
Comment: Briefly, 73-year-old woman presenting with septic shock and bacteremia/fungemia secondary to pyelonephritis
Received broad-spectrum antibiotics and IV fluid resuscitation and is now volume overloaded on exam - suspect this is iatrogenic
Recommend stopping IV fluids
Plan for gentle IV diuresis, monitor renal function closely
Wean oxygen as able
For completeness, check transthoracic echocardiogram on Thursday
Will continue to follow
Original Note:
Consultation
Consultation Request
Date/Time Consultation Requested: 01/16/2024
Date/Time Consultation Performed: 01/16/2024
Requesting Provider: Dr. Garcia
Performing Provider: Digna Liriano PA-C for Dr. Foy
Reason for Consultation: Shortness of breath, abnormal troponin
Medical History
-
History of Present Illness:
Patient is a 73-year-old female with past medical history significant for type 2 diabetes, hyperlipidemia, history of UTIs, urine stone with hydronephrosis and kidney stones who recently had obstructive uropathy requiring urgent stent placement in
[facility] in December 2023 who underwent stone manipulation and stent exchange by urology on 01/14/2024. Postprocedure she developed fevers and chills with abnormal colored urine and presented to emergency department with sepsis. Patient
required pressors on admission secondary to septic shock and hypotension. She was found to have fungemia and E. coli bacteremia and was placed on antibiotics by ID. Patient was given IV fluid resuscitation and was noted to have progressively
worsening shortness of breath associated with cough and weight gain and now requires 3 L of oxygen. Patient was noted to have OLGA with creatinine initially 0.9 raising to 1.9 at peak. Due to shortness of breath and increased oxygen demand chest
x-ray was performed 01/16/2024 which showed mild acute interstitial and alveolar cardiogenic pulmonary edema with mildly decreased bilateral lung volumes and mild cardiomegaly. proBNP was noted to be elevated at 10,200. Initial troponin was
undetectable however repeat 0.270. EKG showed sinus rhythm with occasional PVCs. Cardiology being asked to see patient given abnormal troponin and elevated proBNP. At time of this evaluation patient lying in bed wearing 3 L of oxygen. She feels
short of breath at times, has difficulty taking a deep breath and has a dry cough. Patient denies chest pain or palpitations.
Past medical history:
DM type II
Hyperlipidemia
Urine stone with hydronephrosis
History of recurrent UTI
Kidney stones
Thyroid nodule
Past Medical History
Past Medical History: Other (See HPI)
Past Surgical History: and Other (cataract extraction, urethral stent December 2023, stent exchange 01/14/2024)
Social History
Tobacco: Non-Smoker
Alcohol: None
Drug: None
Personal:
Living: With Family
Family History
Family History: Reviewed & Not Pertinent
Allergies / Home Medications
Allergy/AdvReac Type Severity Reaction Status Date / Time
No Known Allergies Allergy Verified 10/06/23 00:12
�Medication �Instructions �Recorded �Confirmed �Type
glipizide 10 mg tablet 10 mg PO BID@0800,1700 Diabetes 10/05/23 01/14/24 History
naproxen sodium 220 mg tablet 220 mg PO DAILY Pain 10/05/23 01/14/24 History
(Aleve)
rosuvastatin 10 mg tablet 10 mg PO DAILY High Cholesterol 10/05/23 01/14/24 History
ibuprofen 125 mg-acetaminophen 250 1 tab PO TIDPRN PRN mild pain 01/14/24 01/14/24 History
mg tablet (Advil Dual Action)
tamsulosin 0.4 mg capsule 0.4 mg PO HS Urinary Issue 01/14/24 01/14/24 History
Review of Systems
-
History Source: Patient
All other systems: Negative unless noted
Physical Exam
Vital Signs
Temp Pulse Resp BP Pulse Ox
99.0 F 103 20 119/52 97
01/16/24 07:00 01/16/24 04:30 01/16/24 04:30 01/16/24 04:30 01/16/24 04:30
GEN: No distress, awake, Ox3, lying in bed wearing 3 L of oxygen via nasal cannula
HEENT: supple, anicteric, mmm
LUNGS: Mild crackles at bilateral bases CTA, no wheezes/rales
CV: Reg, tachycardic at times S1/S2, no murmur, rub or gallop
ABD: soft, BS+, NT/ND
EXT: Trace bilateral lower extremity edema, no clubbing or cyanosis; mild edema of upper extremities
: Indwelling Rachel with dark yellow urine with sediment
NEURO: Gross non-focal
SKIN: No rash warm, dry, pink
Lab Results
01/16/24 04:52
01/16/24 04:52
Troponin I 0.270 ng/ml H* 01/16/24 08:53
Gos-M-Zkftntefocy Pept 17969 pg/ml 01/16/24 08:53
Impression / Plan
-
PCP: Alex Rao
Public Address System Mechanic: None prior to admission, initial consultation Dr. Foy
Impression:
Presented 01/14/2024 with fever, chills
Septic shock due to bacteremia
s/p kidney stone manipulation and stent exchange 01/13, with urgent stent placement 12/2023
E. coli bacteremia + fungemia likely with Shama
Lactic acidosis due to above
Acute respiratory failure with hypoxia likely due to sepsis with acute organ dysfunction
Acute heart failure with unknown ejection fraction
Abnormal troponin, suspect nonischemic myocardial injury
Acute kidney injury
None anion gap metabolic acidosis due to lactic acidosis + acute kidney injury
Anemia
Thrombocytopenia
DM type II
Hyperlipidemia
Urine stone with hydronephrosis
History of recurrent UTI
Kidney stones
Thyroid nodule
Echo 01/16/2024: ordered
Plan:
Patient is a 73-year-old female with past medical history significant for type 2 diabetes, hyperlipidemia, history of UTIs, urine stone with hydronephrosis and kidney stones who recently had obstructive uropathy requiring urgent stent placement in
[facility] in December 2023 who underwent stone manipulation and stent exchange by urology on 01/14/2024. Postprocedure she developed fevers and chills with abnormal colored urine and presented to emergency department with sepsis. Patient
required pressors on admission secondary to septic shock and hypotension. She was found to have fungemia and E. coli bacteremia and was placed on antibiotics by ID. Patient was given IV fluid resuscitation and was noted to have progressively
worsening shortness of breath associated with cough and weight gain and now requires 3 L of oxygen. Patient was noted to have OLGA with creatinine initially 0.9 raising to 1.9 at peak. Due to shortness of breath and increased oxygen demand chest
x-ray was performed 01/16/2024 which showed mild acute interstitial and alveolar cardiogenic pulmonary edema with mildly decreased bilateral lung volumes and mild cardiomegaly. proBNP was noted to be elevated at 10,200. Initial troponin was
undetectable however repeat 0.270. EKG showed sinus rhythm with occasional PVCs. Cardiology being asked to see patient given abnormal troponin and elevated proBNP. At time of this evaluation patient lying in bed wearing 3 L of oxygen. She feels
short of breath at times, has difficulty taking a deep breath and has a dry cough. Patient denies chest pain or palpitations.
-Presented 01/14/2024 with fevers and chills after renal stone manipulation and stent exchange noted to have E. coli bacteremia and Fungemia
-ID following continue Micafungin and meropenem
-Worsening shortness of breath with increased oxygen demand starting 01/14/2024. Currently on 3 L of oxygen; wean as tolerated
-Acute on chronic heart failure with unknown ejection fraction, proBNP 10,200 on 01/16/2024.
-Chest x-ray with mild acute interstitial and alveolar cardiogenic pulmonary edema
-Patient's weight is up 12 pounds since admission. Would provide IV Lasix 40 mg x 1 and assess response.
-OLGA possibly due to cardiorenal syndrome and volume overload from aggressive fluid resuscitation. Nephrology has been consulted and agrees with as needed Lasix.
-Renal ultrasound ordered
-Abnormal troponin, suspect nonischemic myocardial injury secondary to sepsis and OLGA. Currently 0.270. Trend to peak. EKG stable without ischemic changes, QTc stable at 425 ms. Patient denies chest pain.
-Mildly elevated heart rates at time. Suspect secondary to sepsis, OLGA and heart failure. Hopefully will improve with diuresis
-Check echocardiogram
-Avoid nephrotoxic drugs
-BP stable off pressors. Patient was not on antihypertensive agents prior to admission.
[2024-01-16 12:19] LABS: Glucose - Point of Care 98 mg/dl (70-99)
[2024-01-16 12:28] LABS: Urine Albumin 1+ (Neg - Trace); Urine Bilirubin Negative (Negative); Urine Character Slightly Cloudy (Clear); Urine Color Yellow; Urine Glucose 1+ (Negative); Urine Ketone Trace (Negative); Urine Leukocyte 2+ (Negative); Urine Nitrite Positive (Negative); Urine Occult Blood 4+ (Negative); Urine Urobilinogen 1+ (Neg - 1+); Urine pH 6.5 (5.0-9.0)
[2024-01-16] MEDS: LASIX 40 MG IV (12:42)
[2024-01-16 12:45] LABS: Urine Red Blood Cell 26-30 /HPF (0-2)
[2024-01-16 12:46] LABS: Urine Bacteria Many (Negative); Urine White Cell 60-70 /HPF (0-5)
--- NOTE | 2024-01-16 13:00 | PTCARENOTE ---
No change in patient's assessment. Bicarb Gtt discontinued, patient still remains somnolent, Rachel has been placed, urine sent. 40mg IV lasix given in OCT.
[2024-01-16 13:28] LABS: Urine Sodium 61 mmol/L (30-90)
[2024-01-16 16:44] LABS: Glucose - Point of Care 79 mg/dl (70-99)
--- NOTE | 2024-01-16 16:59 | PTCARENOTE ---
No change in patient's assessment, ordered clear liquid tray, patient not hungry, just requesting ice chips
[2024-01-16 18:38] LABS: Troponin I 0.271 ng/ml
--- NOTE | 2024-01-16 20:00 | PTCARENOTE ---
Received pt sleeping in bed, but easily arousable. AAOx3. Flat affect. BREWER but weak. NSR 80s-100. BP 110s-120s/60s. Trace LE edema. + pulses. Afebrile. On 3L NC, spo2 95-97%. R base with crackles, diminished throughout. Hypoactive bowel sounds.
Smear of BM on sheets. Not nauseous at this time but pt. afraid to drink much because she feels she will get nauseous. Clear liquid diet. Rachel draining yellow urine- see I&O. Skin c/d/i. R DL PICC patent and capped. Pt. repositioning self in bed.
Call elizabeth in reach
[2024-01-16] MEDS: TYLENOL 650 MG PO (21:05)
[2024-01-16 21:21] LABS: Glucose - Point of Care 82 mg/dl (70-99)
[2024-01-17] VITALS (22 sets, daily range): BP systolic 96–135; BP diastolic 49–103; BMI 35.1
--- NOTE | 2024-01-17 | PTCARENOTE ---
No changes in assessment. Pt. sleeping
[2024-01-17 01:30] LABS: Troponin I 0.243 ng/ml
[2024-01-17 03:29] LABS: % Basophils 0.5 % (0-2); % Eosinophils 0.2 % (0-6); % Immature Granulocytes 0.3 % (0-0.5); % Lymphocytes 8.3 % (20.5-51.1); % Monocytes 4.3 % (1.7-9.3); % Neutrophils 86.4 % (42.2-75.2); Absolute Basophils 0.1 10^3/uL (0-0.2); Absolute Lymphocytes 0.9 10^3/uL (1.2-3.4); Absolute Monocytes 0.5 10^3/uL (0.1-0.6); Absolute Neutrophils 9.5 10^3/uL (1.4-6.5); Hematocrit 26.7 % (37.0-47.0); Hemoglobin 8.5 g/dL (12.0-16.0); Mean Corp Hgb Conc. 31.8 g/dL (33.0-37.0); Mean Corpuscular Volume 94.3 fL (81.0-99.0); Nucleated Red Blood Cells % 0 %; Platelet Count 81 10^3/uL (130-400); Red Blood Cell Count 2.83 10^6/uL (4.20-5.40); Red Cell Dist. Width 15.2 % (11.5-14.5)
[2024-01-17 03:47] LABS: INR 1.21; PT 15.1 Sec (11.4-14.6)
[2024-01-17 03:48] LABS: APTT 53.1 Sec (23.4-35.0)
[2024-01-17 03:52] LABS: Fibrinogen 467 MG/DL (199-459)
[2024-01-17 03:54] LABS: ALT (SGPT) 35 U/L (0-35); AST (SGOT) 45 U/L (14-36); Albumin 2.5 g/dl (3.5-5.0); Alkaline Phosphatase 99 U/L (38-126); Blood Urea Nitrogen 51 mg/dl (7-17); Carbon Dioxide 24 mmol/L (22-30); Chloride 109 mmol/L (98-107); Estimated Creatinine Clearance 29 ml/min; Glucose 75 mg/dl (70-99); Magnesium 1.9 mg/dl (1.6-2.3); Potassium 3.8 mmol/L (3.5-5.1); Sodium 140 mmol/L (135-145); Total Bilirubin 1.5 mg/dl (0.2-1.3); Total Protein 5.5 g/dl (6.3-8.2); eGFR 29.57
[2024-01-17 04:02] LABS: D-Dimer 14.78 ug/mlFEU (0.00-0.50)
--- NOTE | 2024-01-17 04:30 | SUR.OPER ---
DDimer elevated- discussed with JENNIFER Hebert- no new orders. Wants information passed on to dayshift. Pt. slept through the night without complication. Remains on 3L NC. VSS.
[2024-01-17] MEDS: STERILE WATER FOR INJECTION 10 ML IV (05:40)
[2024-01-17] MEDS: MERREM 500 MG IV (05:40)
[2024-01-17] MEDS: TYLENOL 650 MG PO ×2 (05:59→23:51)
[2024-01-17] MEDS: NOVOLOG FLEXPEN-LOW RESISTANCE SC ×3 (07:41→16:52)
[2024-01-17] MEDS: PROTONIX IV 40 MG IV (07:41)
[2024-01-17] MEDS: LASIX 40 MG IV (07:42)
[2024-01-17] MEDS: NSS (PRESERVATIVE FREE) 10 ML IV (07:42)
[2024-01-17] MEDS: CRESTOR 10 MG PO (07:42)
[2024-01-17 07:44] LABS: Glucose - Point of Care 76 mg/dl (70-99)
--- NOTE | 2024-01-17 07:49 | W.PN.HOSP.TC ---
Today's Communication/Plan
-
cont diuresis
stop SC heparin--send HIT assay
consider US of legs and if neg, place sequential compression device
ECHO Thursday
if able OOB to chair
cont ABX/antifungal
Assessment / Plan
Assessment / Plan
pt is a 73 year old female
E. coli and yeast septic shock with neutropenia of sepsis (resolved) due to Post ureteroscopy sepsis (History of stent exchanged and replaced 2 years ago and Recent stent placement in [place] 12/2023)--now off pressors--blood positive for yeast/E.
coli, repeat cultures pending--apprec ID--cont meropenem/micafungin--apprec urology s/p lithotripsy surgery and stent exchange--cont flomax
acute hypoxemic resp failure due to sepsis--on 2L O2 NC with sats 97%--wean as able--repeat CXR with pulm edema--apprec cards/renal--IV lasix started--negative I/Os--weights down
non-gapped metabolic acidosis (resolved)--likely not sepsis or DKA--pt has been vomiting/diarrhea so could be GI losses (or iatrogenic from IVF administration)--off bicarb drip--HCO3 is normal at 24
coagulopathy/thrombocytopenia--INR down from 1.6 to 1.2 (no anticoagulation)--fibrinogen above normal at 467--argues against early DIC--D-Dimer (fibrin split products) elevated but had surgery...not concerned for PE--hold on CT scan
n/v--improved--was concerned for anginal equivalent--troponins 0.270, 0.271, 0.243--apprec cards--likely non ischemic myocardial injury--agree with echo
weight gain--likely iatrogenic from IVF administration from sepsis--apprec renal/cards--cont diuresis--creat stable today but not at baseline--weights down
Anemia likely chronic disease/dilutional from IVF--No active bleeding-- ferritin, folate, TIBC show anemia of chronic disease--Continue to monitor
thrombocytopenia -- platelet count dropping since admission--likely due to sepsis but pt on SC heparin--consider HIT assay--stop SC heparin as platelets down to 88K--send HIT assay
OLGA -- creat bumped from admission 0.9 to 1.8--weights up as well--stable at 1.8 with diuresis--goins placed 01/16/24
hypocalcemia--corrected for albumin is 9.2--hold on repletion
Type 2 diabetes--Sliding scale--Carb controlled diet
Hyperlipidemia--Statin continued
DVT prophylaxis--heparin subcu
CODE STATUS--Full code
Total Critical Care Time 35 minutes. I was immediately available to the patient and staff. I personally examined, reviewed labs, diagnostic images/reports, interpretations, treatment plans, discussed patient care with other providers and family
or caregivers (if patient is unable to make decisions), entered orders as appropriate and documented the medical record.
Anticipated Discharge: > 48 hours
Subjective/Interval History
-
Date of Service: January 17, 2024
pt feeling better--LOOKS better--not as SOB
Objective Data
-
Labs:
Laboratory Results
01/17/24
03:02
WBC 11.0 H
Hgb 8.5 L
Hct 26.7 L
Plt Count 81 L
PT 15.1 H
INR 1.21
APTT 53.1 H
Sodium 140
Potassium 3.8
Chloride 109 H
Carbon Dioxide 24
BUN 51 H
Creatinine 1.8 H
Glucose 75
Calcium 8.0 L
Total Bilirubin 1.5 H
AST 45 H
ALT 35
Alkaline Phosphatase 99
Vital Signs:
max temp for 24 hours
01/16/24
11:32
Temp 99.4 F
Vital Signs
Temp Pulse Resp BP Pulse Ox
97.8 F 80 14 102/55 98
01/17/24 03:16 01/17/24 05:00 01/17/24 05:00 01/17/24 05:00 01/17/24 05:00
I&O
01/16/24 01/17/24 01/18/24
06:59 06:59 06:59
Intake Total 2237.5 / 2337.5 630 / 630
Output Total 1000 / 1600 3090 / 3190 100 / 100
Balance 1237.5 / 737.5 -2460 / -2560 -100 / -100
Review of Systems
-
All other systems: Reviewed and negative
Physical Exam
-
General: Well Developed, Well Nourished and No Apparent Distress
HEENT: Normocephalic, Atraumatic and Oxygen
Respiratory: Clear to Auscultation; Negative Wheezes or Rhonchi
Cardiac: Regular Rhythm and S1/S2; Negative Murmur
GI: Soft, Nontender, Nondistended and Normal Bowel Sounds
Musculoskeletal: No Clubbing and No Cyanosis; Negative No Edema (1+ LE edema bilaterally)
Neuro: Awake and Alert
Psych: Calm
--- NOTE | 2024-01-17 07:59 | PTCARENOTE ---
report received from nightshift RN. pt drowsy, arouses easily to voice. AAOX3- forgetful when asked president. generalized weakness. SR on telemetry heart rate in 70s. pulses palpable. trace lower extremity edema. pt on 3L nasal cannula, sat 96%.
lung sounds diminished. active bowel sounds, abdomen round, reports poor appetite. goins draining clear yellow urine. see worklist for full nursing assessment and interventions.
[2024-01-17] MEDS: HEPARIN SC (08:27)
--- NOTE | 2024-01-17 09:12 | W.PN.INTV ---
Today's Communication / Plan
Recommendations
Cautious diuresis
Trend sCr and UOP
Check TTE
Abx as per ID
Maintain SpO2 >90-94% with supplemental O2
Off vasopressors and lactate normalized
Trend Hb and plt, both low from sepsis; no concern for CARLOS (4T score:1)
She has been off vasopressors since 01/15/2024. Patient stable for downgrade out of ICU to telemetry. Sail Finisher Hand/Pulmonary service will now sign off. Thank you for allowing us to be involved in the care of this patient. Please reconsult if there
are any additional questions/concerns, or if patient's respiratory status deteriorates.
Assessment
-
Assessment: 73-year-old female with past medical history of DM type II, hyperlipidemia and history of nephrolithiasis who presents from surgical center after having a stent placed into the kidney due to nephrolithiasis. Postoperatively patient
became feverish with tachycardia, Tylenol was given as well as IV fluids and antibiotics and then was transferred here for further evaluation. Patient was recently hospitalized in [place], [place] in November 2023 when she developed right-sided
obstructive uropathy requiring stent placement and a course of antibiotics. She followed up with urology and today underwent stone manipulation with exchange of the stent. Postoperatively she developed fever, fast heart rate and rigors with
temperature of 101.4 �F here in triage. BP was 118/74, SpO2 92% on room air, pulse rate 93 and respiratory rate 20. Initial labs showed leukopenia with WBC 0.4, anemia with Hb 9.2, and platelet count 133, creatinine was 0.9, chloride was 114,
lactate was 2.5, troponin negative at negative sign 0.012, urinalysis shows +2 leukocyte esterase and >100 urine RBC, and blood cultures/urine culture was collected. Patient given Levaquin in the ER as well as Toradol and was initially admitted to
telemetry. Infectious disease was consulted and meropenem was started. Patient was hypotensive and had been started on IV fluids and also required vasopressors with transfer to IMU. Patient has received a total of 4 L NS 05%. Due to continued
hypotension with worsening vasopressor requirements, patient transferred to the ICU for further care, and critical care services now consulted for additional management/recommendations.
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
Impression:
#Septic shock due to transient bacteremia s/p kidney stone manipulation and stent exchange - shock state now resolved
#E. coli bacteremia + fungemia due to yeast
#Lactic acidosis due to above - lactate now normalized
#Acute respiratory failure with hypoxia likely due to sepsis with acute organ dysfunction
#Acute kidney injury (Cr baseline 0.9)
#Non-anion gap metabolic acidosis due to lactic acidosis + acute kidney injury
#Elevated troponin likely due to demand ischemia with type II RI - peaked at 0.271 on 01/16/2024
#Abnormal urinalysis with elevated leukocyte esterase suspicious for UTI
#Anemia (baseline ~12.5)
#Thrombocytopenia (baseline ~150-200) - this is likely due to sepsis
#DM type II
#History of UTI due to E. coli (jacome-sensitive) + Enterobacter cloacae #MDR)
Plan:
- Patient has been off of vasopressors since 01/15/2024 and is currently hemodynamically stable
- Maintain MAP>65
- Patient has received total of 4L crystalloids since admission + maintenance IVF on 01/14 with LR; she also received bicarb gtt overnight which is now off; of note, her VBG on 01/14 showed a normal pH (corrected pH of 7.38) ---> b considering patient
CXR on AM of 01/15 showed evidence of pulmonary vascular congestion, stopped IV fluids, diuresed with IV lasix on 01/15 + today; would re-assess need for IV diuresis daily
- Check 2D-echo
- Encourage PO intake as tolerated with prn zofran (monitor QTc - 425ms on EKG from 01/16/2024)
- ABx as per ID --> On cefazolin s/p meropenem (started 01/14/2024 - 01/16), micafungin (started 01/14) s/p levaquin x 1 dose in ER
- Follow up infectious workup with blood and urine Cx (both collected 01/14/2024)
- Blood Cx (1 of 2) from 01/14/2024 is grew jacome-sensitive E. coli; both BCx have grown budding yeasts, still awaiting species
- Discussed case with ophthalmology with Dr. Narayanan on 01/15/2024, and there is no indication for dilated eye exam at this time to rule out endophthalmitis. Patient can follow-up with her [employer] as an outpatient, which she sees due to a
history of blurry vision from suspected diabetic retinopathy
- Maintain SpO2 >90-94% with supplemental O2 and wean off as tolerated
- prn nebulized bronchodilators
- Incentive spirometer encouraged
- Trend serum HCO3
- No longer need to trend cardiac troponin given it peaked at 0.271 on 01/15
- Trend Hb and plt count and transfuse to keep Hb>7, plt>20k
- 4T score is 1 --> low probability of CARLOS; no need to send CARLOS panel
- Replete electrolytes with K>4, Mg>2
- Maintain euglycemia with goal BG 140-180
- Stress ulcer ppx: No indication currently
- DVT ppx
She has been off vasopressors since 01/15/2024. Patient stable for downgrade out of ICU to telemetry. Sail Finisher Hand/Pulmonary service will now sign off. Thank you for allowing us to be involved in the care of this patient. Please reconsult if there
are any additional questions/concerns, or if patient's respiratory status deteriorates.
Total time spent today was 35 minutes for this encounter. Time includes reviewing laboratory test/imaging results, reviewing pertinent medical records, obtaining and reviewing medical history, performing an appropriate exam, ordering medications,
tests and procedures. Time also includes documentation of this encounter, coordinating patient care and communicating with other healthcare professionals. Total time does not include separately billed tests performed on this date of service.
Data:
CXR 6-8-2024:
1. Mild acute interstitial and alveolar cardiogenic pulmonary edema.
2. Mildly decreased bilateral lung volumes.
3. Mild cardiomegaly.
4. Right upper extremity PICC line in place.
CXR 01-15-2024: Poor inspiratory effort. Probable mild generalized atelectasis. Cannot entirely exclude acute pneumonitis, though no focal dense consolidation is identified.
Subjective Dataa
Subjective Data
Date of Service:
Date of Service: January 17, 2024
Chief Complaint: Sail Finisher Hand Follow Up
Subjective:
Patient seen and evaluated today at bedside. Currently saturating 99% on 2 L/min nasal cannula. BP 121/64. Heart rate 72. Afebrile overnight. Patient still feels fatigued with SOB with exertion. Denies chest pain, headache, fevers or chills.
Review of Systems
General: Other (Negative unless mentioned above)
Objective Data
Data Reviewed
Vital Signs / I&O / Oxygen:
Vital Signs
Temp Pulse Resp BP Pulse Ox
97.9 F 75 10 107/50 97
01/17/24 08:03 01/17/24 07:42 01/17/24 07:42 01/17/24 07:42 01/17/24 07:42
Intake and Output
01/16/24 01/17/24 01/18/24
06:59 06:59 06:59
Intake Total 2237.5 / 2337.5 630 / 630
Output Total 1000 / 1600 3090 / 3190 400 / 400
Balance 1237.5 / 737.5 -2460 / -2560 -400 / -400
SaO2 97
Nasal Cannula flow liters per 3
minute
Physical Exam
General: Respiratory Distress (negative), Comfortable and Chills (negative)
HEENT: Normocephalic and Anicteric
Cardiovascular: S1-S2 and Peripheral Edema (negative)
Respiratory: Wheeze (negative), Crackles (Bilaterally (R >L)), Rhonchi (n) and Accessory Resp Muscle Use (n)
GI: Soft, Non Distended, Non Tender and Normal Bowel Sounds
Neurology: Awake, Alert and Tremors (n)
Skin: Warm, Dry and Jaundice (negative)
Labs/Micro/Reports
Lab Data
01/17/24 03:02
01/17/24 03:02
Laboratory Results
01/17/24
03:02
PT 15.1 H
INR 1.21
APTT 53.1 H
Microbiology
01/15/24 11:39 Blood/Venous Blood Culture - Preliminary
Yeast
01/15/24 11:39 Blood/Venous Gram Stain - Final
01/14/24 11:29 Blood/Venous Blood Culture - Final
Yeast
01/14/24 11:29 Blood/Venous Gram Stain - Final
01/14/24 11:21 Blood/Venous Blood Culture - Final
Escherichia coli
Yeast
01/14/24 11:21 Blood/Venous Gram Stain - Final
01/16/24 04:52 Blood/Venous Blood Culture - Preliminary
No Growth in 24 hours- Final report to follow
01/16/24 04:52 Blood/Venous Blood Culture - Preliminary
No Growth in 24 hours- Final report to follow
01/14/24 11:34 Urine Urine Culture - Final
[2024-01-17] MEDS: MYCAMINE 105 MG IV (10:04)
--- NOTE | 2024-01-17 10:25 | W.PN.URO.CBU ---
Today's Communication / Plan
-
Patient frail-appearing but making clinical progress
Assessment / Plan
-
Urosepsis s/p ureteroscopy/stone manipulation/stent exchange 01/13
H/o E. Coli urosepsis and obstructive uropathy s/p right stent (12/05/23, [facility])
H/o E. Coli + enterobacter UTI
Candidemia
01/13: s/p right ureteroscopy/stone manipulation/stent exchange
Diagnosis
-
Date of Service: January 17, 2024
-
Patient Diagnosis:
Urosepsis s/p ureteroscopy/stone manipulation/stent exchange 01/13
H/o E. Coli urosepsis and obstructive uropathy s/p right stent (12/05/23, [facility])
H/o E. Coli + enterobacter UTI
Candidemia resolved by most recent blood cultures
Post Op Day:
01/13: s/p right ureteroscopy/stone manipulation/stent exchange
Subjective
-
c/o dizziness and light headedness
Nausea resolving: tolerated sips/ice chips
No catheter bother
Objective
-
Vital Signs
Temp Pulse Resp BP Pulse Ox
97.9 F 68 8 121/64 99
01/17/24 08:03 01/17/24 10:00 01/17/24 10:00 01/17/24 10:00 01/17/24 10:13
Intake and Output
01/16/24 01/17/24 01/18/24
06:59 06:59 06:59
Intake Total 2237.5 / 2337.5 630 / 630 100 / 100
Output Total 1000 / 1600 3090 / 3190 900 / 900
Balance 1237.5 / 737.5 -2460 / -2560 -800 / -800
Intake:
Oral fluids 120 / 120
IV fluids (Total) 2072.5 / 2172.5 400 / 400
Levophed 472.5 / 472.5 0 / 0
Nss 1,000 ml @ 125 mls/hr IV . 500 / 500
Q8H MAGDY Rx#:[id number]
Sterile Water For Injection 1100 / 1200 100 / 100
1000 ml 1,000 ml @ 100 mls/hr
IV .[id number] MAGDY with Sodium
Bicarbonate 150 Meq Rx#:
[id number]
Sterile Water For Injection 300 / 300
1000 ml 1,000 ml @ 60 mls/hr IV
.[id number] MAGDY with Sodium
Bicarbonate 150 Meq Rx#:
[id number]
IV piggybacks 165 / 165 110 / 110 100 / 100
Output:
Urine, Rachel 2490 / 2590 900 / 900
Urine, Voided 1000 / 1600 600 / 600
Other:
Number of approximated MODERATE 1
amounts of urine
Laboratory Results
01/17/24 03:02
01/17/24 03:02
Review of Systems
-
Constitutional: Fatigue
Cardiac: No Symptoms
Abdomen/GI: Nausea
: No Symptoms
Physical Exam
-
General - no acute distress
Abdomen - soft, non-tender
Genitalia - Rachel draining clear urine
Counseling
-
Keep Rachel
Continue current antibiotic regimen
--- NOTE | 2024-01-17 10:29 | W.PN.ID1 ---
Date of Service
Date of Service: January 17, 2024
Today's Communication
See below.
Assessment / Plan
# Fungemia- source
# E. coli bacteremia - source
# s/p Septic shock immediately post urological procedure stone manipulation/R ureter stent exchange
# OLGA
-Fever resolved
-Repeat bcx's neg to date
- Continue micafungin (d3)
-Narrow meropenem (d4) to cefazolin 1g IV q12.
#Additional Past Medical History:
DM2
Macular degeneration
Nephrolithiasis
HLD
thyroid nodule
Chief Complaint
-: Clinical Sepsis, UTI and Other (Fungemia)
Subjective / Review of Systems
Stable.
Vital Signs / Physical Exam
Vital Signs
Vital Signs
Temp Pulse Resp BP Pulse Ox
97.9 F 68 8 121/64 99
01/17/24 08:03 01/17/24 10:00 01/17/24 10:00 01/17/24 10:00 01/17/24 10:13
Physical Exam
Constitutional: No Acute Distress and Comfortable
Pulmonary: Clear
Genito-Urinary: Rachel and Turbid Urine; Negative CVA Tenderness
Lines: PICC (RUE no erythema)
Objective Data
Lab Data
Lab Results
01/17/24 03:02
01/17/24 03:02
PT 15.1 Sec (11.4-14.6) H 01/17/24 03:02
INR 1.21 01/17/24 03:02
APTT 53.1 Sec (23.4-35.0) H 01/17/24 03:02
Estimated Creat Clear 29 ml/min 01/17/24 03:02
Lactic Acid 1.0 mmol/L (0.7-2.0) 01/17/24 03:02
Total Bilirubin 1.5 mg/dl (0.2-1.3) H 01/17/24 03:02
AST 45 U/L (14-36) H 01/17/24 03:02
ALT 35 U/L (0-35) 01/17/24 03:02
Alkaline Phosphatase 99 U/L (38-126) 01/17/24 03:02
Most recent labs reviewed.
Micro Results:
01/15/24 11:39 Blood Culture - Preliminary
Blood/Venous Yeast
Gram Stain - Final
01/14/24 11:29 Blood Culture - Final
Blood/Venous Yeast
Gram Stain - Final
01/14/24 11:21 Blood Culture - Final
Blood/Venous Escherichia coli
Yeast
Gram Stain - Final
01/16/24 04:52 Blood Culture - Preliminary
Blood/Venous No Growth in 24 hours- Final report to follow
01/16/24 04:52 Blood Culture - Preliminary
Blood/Venous No Growth in 24 hours- Final report to follow
01/14/24 11:22 Fungus Mold Identification - Pending
Blood/Venous
01/14/24 11:34 Urine Culture - Final
Urine
--- NOTE | 2024-01-17 11:11 | W.PN.NEPH.PH ---
Today's Communication / Plan
-
hold lasix
eval for hearing impairment
Assessment/Plan
-
IMP:
OLGA-baseline cr 0.9
(US small left kidney 09/2023)
septic shock
Fungemia
E coli bacteremia
Non gap met acidosis
Neutropenia-resolved
s/Post ureteroscopy sepsis (History of stent exchanged and replaced 01/13 and Recent stent placement in [place] 12/2023)
acute hypoxemic resp failure
Anemia
thrombocytopenia
hypocalcemia-corrected normal for alb
Type 2 diabetes
Hyperlipidemia
Thyroid nodule
Plan;
A/w sepsis post urological procedure
septic shock-fungemia, E coli bacteremia-ID follows
OLGA-in setting of sepsis, UA with hematuria, pyuria still sample post procedure- Fena 1.5
cr no change seem possible ATN, unlikely AIN with early rise of cr, check U eosinophils
non oliguric with goins, check renal US([place] left kidney in [place] 09[place])
non gap met acidosis improving
hypervolemia with pulm edema-wean O2 as possible, echo pending
wt decreasing, probably no need further diuresis after today
BP stable off pressors
dose meds renally
follow h/h and plt, decreasing-adequate fe stores
avoid nephrotoxins and DO NOT RESUME Farxiga(was on home list)
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
hold lasix
d/w pt and nursing
-
-
Date of Service: January 17, 2024
CC / HPI / ROS
-
Chief Complaint:
OLGA
History of Present Illness:
cr no change at 1.8
BP stable off pressors
wt decreased post lasix
non oliguric with goins
on 2lit of O2
no fever
Review of Systems:
no cp or sob at rest
allowed for liquid diet but poor po intake
c/o dizziness and hearing impairment bilat since 01/15, reportedly had ringing BILL BOARD POSTER improved after admit until sym returned more since yesterday
Labs
-
Labs:
WBC 11.0 10^3/uL (4.8-10.8) H 01/17/24 03:02
RBC 2.83 10^6/uL (4.20-5.40) L 01/17/24 03:02
Hgb 8.5 g/dL (12.0-16.0) L 01/17/24 03:02
Hct 26.7 % (37.0-47.0) L 01/17/24 03:02
Plt Count 81 10^3/uL (130-400) L 01/17/24 03:02
Sodium 140 mmol/L (135-145) 01/17/24 03:02
Potassium 3.8 mmol/L (3.5-5.1) 01/17/24 03:02
Chloride 109 mmol/L (98-107) H 01/17/24 03:02
Carbon Dioxide 24 mmol/L (22-30) 01/17/24 03:02
BUN 51 mg/dl (7-17) H 01/17/24 03:02
Creatinine 1.8 mg/dL (0.6-1.0) H 01/17/24 03:02
eGFR 29.57 01/17/24 03:02
Glucose 75 mg/dl (70-99) 01/17/24 03:02
Calcium 8.0 mg/dl (8.4-10.2) L 01/17/24 03:02
Phosphorus 3.9 mg/dl (2.5-4.5) 01/16/24 04:52
Kqz-D-Zwiyryxierv Pept 60443 pg/ml 01/16/24 08:53
Albumin 2.5 g/dl (3.5-5.0) L 01/17/24 03:02
Physical Exam
-
Vital Signs:
Vital Signs
Temp Pulse Resp BP Pulse Ox
97.9 F 71 10 125/78 97
01/17/24 08:03 01/17/24 11:00 01/17/24 11:00 01/17/24 11:00 01/17/24 11:00
Cardiovascular:: Regular rate and rhythm
Respiratory:: Bilateral: CTA (decreased)
Lung Excursion:: Normal
Abdomen:: Nontender and Soft
Extremity Edema:: None: Bilateral:
Goins Catheter: Yes
[2024-01-17 12:06] LABS: Glucose - Point of Care 83 mg/dl (70-99)
--- NOTE | 2024-01-17 12:26 | PTCARENOTE ---
pt resting comfortably in bed, now more awake and talking on the phone. able to tolerate chicken broth. SR on telemetry heart rate in 70s. 96% on 2L nasal cannula.
[2024-01-17] MEDS: ANCEF 5 IV (13:18)
[2024-01-17 14:39] LABS: Body Fluid for Eosinophils No Eosinophils seen
--- NOTE | 2024-01-17 15:12 | W.PN.CARDCBS ---
Today's Communication / Plan
-
Lasix on hold per nephrology
Check echo tomorrow
Impression / Plan
-
PCP: Alex Rao
Scouring Pads Supervisor: None prior to admission, initial consultation Dr. Foy
Impression:
Presented 01/14/2024 with fever, chills
Septic shock due to bacteremia
s/p kidney stone manipulation and stent exchange 01/13, with urgent stent placement 12/2023
E. coli bacteremia + fungemia likely with Shama
Lactic acidosis due to above
Acute respiratory failure with hypoxia likely due to sepsis with acute organ dysfunction
Acute heart failure with unknown ejection fraction
Abnormal troponin, suspect nonischemic myocardial injury
Acute kidney injury
None anion gap metabolic acidosis due to lactic acidosis + acute kidney injury
Anemia
Thrombocytopenia
DM type II
Hyperlipidemia
Urine stone with hydronephrosis
History of recurrent UTI
Kidney stones
Thyroid nodule
Echo 01/16/2024: ordered
Patient is a 73-year-old female with past medical history significant for type 2 diabetes, hyperlipidemia, history of UTIs, urine stone with hydronephrosis and kidney stones who recently had obstructive uropathy requiring urgent stent placement in
[facility] in December 2023 who underwent stone manipulation and stent exchange by urology on 01/14/2024. Postprocedure she developed fevers and chills with abnormal colored urine and presented to emergency department with sepsis. Patient
required pressors on admission secondary to septic shock and hypotension. She was found to have fungemia and E. coli bacteremia and was placed on antibiotics by ID. Patient was given IV fluid resuscitation and was noted to have progressively
worsening shortness of breath associated with cough and weight gain and now requires 3 L of oxygen. Patient was noted to have OLGA with creatinine initially 0.9 raising to 1.9 at peak. Due to shortness of breath and increased oxygen demand chest
x-ray was performed 01/16/2024 which showed mild acute interstitial and alveolar cardiogenic pulmonary edema with mildly decreased bilateral lung volumes and mild cardiomegaly. proBNP was noted to be elevated at 10,200. Initial troponin was
undetectable however repeat 0.270. EKG showed sinus rhythm with occasional PVCs. Cardiology being asked to see patient given abnormal troponin and elevated proBNP. At time of this evaluation patient lying in bed wearing 3 L of oxygen. She feels
short of breath at times, has difficulty taking a deep breath and has a dry cough. Patient denies chest pain or palpitations.
Plan:
-Presented 01/14/2024 with fevers and chills after renal stone manipulation and stent exchange noted to have E. coli bacteremia and Fungemia
-ID following continue Micafungin and meropenem
-Worsening shortness of breath with increased oxygen demand starting 01/14/2024. Requiring supplemental O2, wean as tolerated
-Acute on chronic heart failure with unknown ejection fraction, proBNP 10,200 on 01/16/2024.
-Chest x-ray with mild acute interstitial and alveolar cardiogenic pulmonary edema
-Patient's weight is up 12 pounds since admission.
-Lasix on hold per nephrology
-Check echocardiogram
-Abnormal troponin, suspect nonischemic myocardial injury secondary to sepsis and OLGA. Peaked at 0.271. EKG stable without ischemic changes.
Progress Note - Scouring Pads Supervisor
Subjective
Date of Service: January 17, 2024
No acute overnight events. No cardiac complaints, no chest pain breathing is comfortable. Does report difficulty hearing today.
Objective
Labs:
01/17/24 03:02
01/17/24 03:02
Labs
Hgb 8.5 g/dL (12.0-16.0) L 01/17/24 03:02
Hct 26.7 % (37.0-47.0) L 01/17/24 03:02
Plt Count 81 10^3/uL (130-400) L 01/17/24 03:02
PT 15.1 Sec (11.4-14.6) H 01/17/24 03:02
INR 1.21 01/17/24 03:02
APTT 53.1 Sec (23.4-35.0) H 01/17/24 03:02
Sodium 140 mmol/L (135-145) 01/17/24 03:02
Potassium 3.8 mmol/L (3.5-5.1) 01/17/24 03:02
BUN 51 mg/dl (7-17) H 01/17/24 03:02
Creatinine 1.8 mg/dL (0.6-1.0) H 01/17/24 03:02
Glucose 75 mg/dl (70-99) 01/17/24 03:02
Troponins
01/16/24 01/16/24 01/17/24
08:53 17:53 00:57
Troponin I 0.270 H* 0.271 H* 0.243 H*
Vital Signs and I&O:
Vital Signs
Temp Pulse Resp BP Pulse Ox
97.7 F 67 12 123/66 97
01/17/24 11:15 01/17/24 13:00 01/17/24 13:00 01/17/24 13:00 01/17/24 13:00
Vital Signs
Temp Pulse Resp BP Pulse Ox
97.7 F 67 12 123/66 97
01/17/24 11:15 01/17/24 13:00 01/17/24 13:00 01/17/24 13:00 01/17/24 13:00
Intake & Output
01/15/24 01/16/24 01/17/24 01/18/24
06:59 06:59 06:59 06:59
Intake Total 1145 / 1145 2237.5 / 2337.5 630 / 630 400 / 400
Output Total 1000 / 1600 3090 / 3190 1550 / 1550
Balance 1145 / 1145 1237.5 / 737.5 -2460 / -2560 -1150 / -1150
Physical Exam
Physical Exam
Gen: NAD, AA
HEENT: NC/AT, sclera anicteric
Neck: No JVD
CV: RRR, NL s1/s2
Lungs: No increased work of breathing on 3 L nasal cannula
Abd: S/ND
Ext: Trace peripheral edema
Skin: Warm, dry
Neuro: Non-focal
[2024-01-17 17:01] LABS: Glucose - Point of Care 69 mg/dl (70-99)
[2024-01-17 17:20] LABS: Glucose - Point of Care 71 mg/dl (70-99)
[2024-01-17 19:09] LABS: Glucose - Point of Care 89 mg/dl (70-99)
[2024-01-17] MEDS: ZOFRAN 4 MG IV (21:16)
[2024-01-17 21:30] LABS: Glucose - Point of Care 80 mg/dl (70-99)
--- NOTE | 2024-01-17 21:49 | PTCARENOTE ---
Received pt resting in bed, AAOx3. CHICKEN RANCH B/L- pt. reports this started a few days ago. No tinnitus or CARLSON. Reports dizziness if she moves too much. BREWER, weak. SR on tele. VSS. On 2L NC. Lungs diminished. Hypoactive bowel sounds. Poor appetite. Clear
liquids. Rachel draining yellow urine. Skin c/d/i. R DL PICC patent and capped. Pt. was given full bed bath and shampoo cap. After turning in bed to change linens, pt. reported nausea- vomited very small amount clear. Zofran given with good effect.
Now resting. Call elizabeth in reach
[2024-01-18] VITALS (12 sets, daily range): BP systolic 117–154; BP diastolic 67–115; PULSE 75; O2SAT 97–98; BMI 34.7
[2024-01-18] MEDS: ANCEF 5 IV ×2 (02:26→13:59)
[2024-01-18 03:11] LABS: Glucose - Point of Care 82 mg/dl (70-99)
[2024-01-18 04:14] LABS: Hemoglobin 8.7 g/dL (12.0-16.0); Mean Corp Hgb Conc. 31.1 g/dL (33.0-37.0); Mean Corpuscular Hgb 29.4 pg (27.0-31.0); Mean Corpuscular Volume 94.6 fL (81.0-99.0); Platelet Count 69 10^3/uL (130-400); Red Blood Cell Count 2.96 10^6/uL (4.20-5.40); Red Cell Dist. Width 14.7 % (11.5-14.5); White Blood Cell Count 12.2 10^3/uL (4.8-10.8)
[2024-01-18 04:25] LABS: INR 1.06; PT 13.6 Sec (11.4-14.6)
[2024-01-18 04:34] LABS: ALT (SGPT) 33 U/L (0-35); AST (SGOT) 36 U/L (14-36); Albumin 2.5 g/dl (3.5-5.0); Alkaline Phosphatase 131 U/L (38-126); Blood Urea Nitrogen 47 mg/dl (7-17); Calcium 8.4 mg/dl (8.4-10.2); Carbon Dioxide 25 mmol/L (22-30); Chloride 107 mmol/L (98-107); Estimated Creatinine Clearance 33 ml/min; Glucose 79 mg/dl (70-99); Phosphorus 3.5 mg/dl (2.5-4.5); Potassium 3.7 mmol/L (3.5-5.1); Sodium 140 mmol/L (135-145); Total Protein 5.6 g/dl (6.3-8.2)
[2024-01-18 04:41] LABS: NT-proBNP 3260 pg/ml
--- NOTE | 2024-01-18 07:13 | W.PN.HOSP.TC ---
Addendum entered and electronically signed by Courtney Bardales MD 01/18/24 15:56:
Brain MRI:
IMPRESSION:
1. NEUROVASCULAR IMPINGEMENT on the cisternal segment of the RIGHT COCHLEAR NERVE caused by a tortuous right AICA.
2. 5.4 mm chronic lacunar infarct in the left thalamus.
3. Minimal periventricular white matter leukoaraiosis in the frontal lobes.
discussed with Dr. Gross- no need for intervention, will need audiogram post discharge. Patient will be seen by Dr. Gross later today.
patient and daughter updated
Addendum entered and electronically signed by Courtney Bardales MD 01/18/24 09:01:
discussed with Dr. Gross, MRI ordered for further evaluation of hearing loss. no contrast given low creatinine clearance
ENT to see today or tomorrow
Addendum entered and electronically signed by Courtney Bardales MD 01/18/24 07:52:
1G magnesium for CARLSON
Original Note:
Today's Communication/Plan
-
see plan
Assessment / Plan
Assessment / Plan
Ms. Jacqui Don is a 73 yo woman with hx DM II, recent complicated UTI with nephrolithiasis s/p stent placement 12/31 s/p stent exchange on 01/14/24 [facility] post-op course complicated by fever found to have septic shock 2/2 UTI.
Septic Shock 2/2 complicated UTI
Fungemia - source
E. Coli Bacteremia
-s/p ureteroscopy sepsis (stent placement in [place] 12/2023 s/p stent exchange
-now off pressors
-repeat blood dultures negative
-appreciate ID
-continue IV Cefazolin and Micafungin
-appreciate Urology
-continue flomax
-do not resume Farxiga at DC
Right Ear hearing loss
-no ear pain or abnormality external ear canal visible on exam
-per patient this has been on-going x 2 weeks
-hx of cerumen build-up
-will curbside ENT today
Frontal Headache
Tension CARLSON
-in setting of hospitalization, acute illness
-tylenol PRN
-patient has lightheadedness with small movements, suspect deconditioning/effect of acute illness. no vertigo
acute hypoxemic resp failure
Acute Heart failure with unknown EF
-s/p diuresis
-appreciate cardiology and renal evals
-lasix on hold
-TTE today
OLGA
-creat bumped from admission 0.9 to 1.8
-goins placed on 6.8
-lasix held, remains net negative +
-mild improvement today
non-gapped metabolic acidosis (resolved)
-pt has been vomiting/diarrhea so could be GI losses (or iatrogenic from IVF administration)
coagulopathy/thrombocytopenia
-INR down from 1.6 to 1.2 (no anticoagulation)--fibrinogen above normal at 467--argues against early DIC--D-Dimer (fibrin split products) elevated but had surgery...not concerned for PE--hold on CT scan
n/v--improved--was concerned for anginal equivalent--troponins 0.270, 0.271, 0.243--apprec cards--likely non ischemic myocardial injury- plan for TTE
Anemia likely chronic disease/dilutional from IVF
-No active bleeding
- ferritin, folate, TIBC show anemia of chronic disease
-Continue to monitor
thrombocytopenia
-HIT assay sent and heparin on hold; scoring = 1-2 - low probability
hypocalcemia--corrected for albumin is 9.2--hold on repletion
Type 2 diabetes--Sliding scale--Carb controlled diet
Hyperlipidemia--Statin continued
DVT prophylaxis-- SCD
CODE STATUS--Full code
51 minutes spent on patient evalution, medical decision making, coordination of care
Anticipated Discharge: > 48 hours
Subjective/Interval History
-
Date of Service: January 18, 2024
patient complains of right ear hearing loss over past 2 weeks. has chronic hearing loss on left
she has frontal headache which she had last time she was hospitalized
she complains of feeling lightheaded with mild movements in bed; no vertigo
Objective Data
-
Labs:
Laboratory Results
01/18/24
03:58
WBC 12.2 H
Hgb 8.7 L
Hct 28.0 L
Plt Count 69 L
PT 13.6
INR 1.06
Sodium 140
Potassium 3.7
Chloride 107
Carbon Dioxide 25
BUN 47 H
Creatinine 1.5 H
Glucose 79
Calcium 8.4
Total Bilirubin 1.0
AST 36
ALT 33
Alkaline Phosphatase 131 H
Vital Signs:
Vital Signs
Temp Pulse Resp BP Pulse Ox
97.8 F 77 13 136/81 95
01/18/24 03:14 01/18/24 06:00 01/18/24 06:00 01/18/24 04:00 01/18/24 06:00
I&O
01/17/24 01/18/24 01/19/24
06:59 06:59 06:59
Intake Total 630 / 630 700 / 700
Output Total 3090 / 3190 2885 / 2885
Balance -2460 / -2560 -2185 / -2185
Review of Systems
-
History Source: Patient
All other systems: Reviewed and negative
Physical Exam
-
General: No Apparent Distress
HEENT: Normocephalic, Atraumatic, Oxygen and Other (ear without erythema or discharge)
Respiratory: Clear to Auscultation; Negative Wheezes or Rhonchi
Cardiac: Regular Rhythm and S1/S2; Negative Murmur
GI: Soft, Nontender, Nondistended and Normal Bowel Sounds
Musculoskeletal: No Clubbing and No Cyanosis; Negative No Edema (1+ LE edema bilaterally)
Neuro: Awake and Alert
Psych: Calm
Data Reviewed
-
Diagnostic Radiology: Report Reviewed by me
Labs: Labs Reviewed by me
[2024-01-18 08:22] LABS: Glucose - Point of Care 75 mg/dl (70-99)
[2024-01-18] MEDS: NOVOLOG FLEXPEN-LOW RESISTANCE SC ×3 (08:23→17:28)
[2024-01-18] MEDS: CRESTOR 10 MG PO (08:28)
[2024-01-18] MEDS: MAGNESIUM SULFATE 100 IV (08:28)
[2024-01-18] MEDS: NSS (PRESERVATIVE FREE) 10 ML IV (08:28)
[2024-01-18] MEDS: PROTONIX IV 40 MG IV (08:28)
--- NOTE | 2024-01-18 09:34 | W.PN.NEPH.PH ---
Today's Communication / Plan
-
OLGA improving
non oliguric
hold further lasix
Assessment/Plan
-
IMP:
OLGA-baseline cr 0.9
(US small left kidney 09/2023)
septic shock
Fungemia
E coli bacteremia
Non gap met acidosis
Neutropenia-resolved
s/Post ureteroscopy sepsis (History of stent exchanged and replaced 01/13 and Recent stent placement in [place] 12/2023)
acute hypoxemic resp failure
Anemia
thrombocytopenia
hypocalcemia-corrected normal for alb
Type 2 diabetes
Hyperlipidemia
Thyroid nodule
Plan;
A/w sepsis post urological procedure
septic shock-fungemia, E coli bacteremia-ID follows
OLGA-in setting of sepsis, UA with hematuria, pyuria still sample post procedure- Fena 1.5
creatinine improved to 1.5 and grosssly non oliguric ~2liters
possible ATN, unlikely AIN with early rise of cr, checked U eosinophils (negative)
non oliguric with goins, check renal US(small left kidney in 09/2023)
non gap met acidosis improved
renal u/s without hydronephrosis
hypervolemia with pulmonary edema-wean O2 as possible, echo pending
BP stable off pressors
dose meds renally
follow h/h and plt, decreasing-adequate fe stores
avoid nephrotoxins and DO NOT RESUME Farxiga(was on home list)
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
holding lasix
d/w pt and nursing
-
-
Date of Service: January 18, 2024
CC / HPI / ROS
-
Chief Complaint:
OLGA
History of Present Illness:
cr no change at 1.5
BP stable off pressors
wt decreased post lasix
non oliguric with goins
on 2lit of O2
no fever
Review of Systems:
no cp or sob at rest
goins in
allowed for liquid diet but poor po intake
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
Labs
-
Labs:
WBC 12.2 10^3/uL (4.8-10.8) H 01/18/24 03:58
RBC 2.96 10^6/uL (4.20-5.40) L 01/18/24 03:58
Hgb 8.7 g/dL (12.0-16.0) L 01/18/24 03:58
Hct 28.0 % (37.0-47.0) L 01/18/24 03:58
Plt Count 69 10^3/uL (130-400) L 01/18/24 03:58
Sodium 140 mmol/L (135-145) 01/18/24 03:58
Potassium 3.7 mmol/L (3.5-5.1) 01/18/24 03:58
Chloride 107 mmol/L (98-107) 01/18/24 03:58
Carbon Dioxide 25 mmol/L (22-30) 01/18/24 03:58
BUN 47 mg/dl (7-17) H 01/18/24 03:58
Creatinine 1.5 mg/dL (0.6-1.0) H 01/18/24 03:58
eGFR 36.80 01/18/24 03:58
Glucose 79 mg/dl (70-99) 01/18/24 03:58
Calcium 8.4 mg/dl (8.4-10.2) 01/18/24 03:58
Phosphorus 3.5 mg/dl (2.5-4.5) 01/18/24 03:58
Fns-Z-Oxqwsxjafky Pept 3260 pg/ml 01/18/24 03:58
Albumin 2.5 g/dl (3.5-5.0) L 01/18/24 03:58
Physical Exam
-
Vital Signs:
Vital Signs
Temp Pulse Resp BP Pulse Ox
97.8 F 77 13 136/81 95
01/18/24 08:36 01/18/24 06:00 01/18/24 06:00 01/18/24 04:00 01/18/24 06:00
Cardiovascular:: Regular rate and rhythm
Respiratory:: Bilateral: CTA
Lung Excursion:: Normal
Abdomen:: Nontender
Bowel Sounds:: Normal
Extremity Edema:: None: Bilateral:
Goins Catheter: Yes
--- NOTE | 2024-01-18 10:36 | W.PN.ID1 ---
Date of Service
Date of Service: January 18, 2024
Today's Communication
Continue cefazolin and micafungin.
Assessment / Plan
# Fungemia- source
# E. coli bacteremia - source
# s/p Septic shock immediately post urological procedure stone manipulation/R ureter stent exchange
# OLGA
-Fever resolved
-Repeat bcx's neg to date
- Continue micafungin (d4) pending identification of yeast.
-Continue cefazolin 1g IV q12 (d5)
- Follow WBC
# Acute CHF
- TTE in process
#Additional Past Medical History:
DM2
Macular degeneration
Nephrolithiasis
HLD
thyroid nodule
Chief Complaint
-: Clinical Sepsis, UTI and Other (Fungemia)
Subjective / Review of Systems
+ SOB
no acute visual change.
Vital Signs / Physical Exam
Vital Signs
Vital Signs
Temp Pulse Resp BP Pulse Ox
97.8 F 77 13 136/81 95
01/18/24 08:36 01/18/24 06:00 01/18/24 06:00 01/18/24 04:00 01/18/24 06:00
Physical Exam
Constitutional: Comfortable
Pulmonary: Rales (at bases)
Gastrointestinal: Soft and Non Tender
Genito-Urinary: Rachel and Clear Urine; Negative CVA Tenderness
Neurological: AO x 3
Objective Data
Lab Data
Lab Results
01/18/24 03:58
01/18/24 03:58
PT 13.6 Sec (11.4-14.6) 01/18/24 03:58
INR 1.06 01/18/24 03:58
APTT 53.1 Sec (23.4-35.0) H 01/17/24 03:02
Estimated Creat Clear 33 ml/min 01/18/24 03:58
Lactic Acid 1.0 mmol/L (0.7-2.0) 01/17/24 03:02
Total Bilirubin 1.0 mg/dl (0.2-1.3) 01/18/24 03:58
AST 36 U/L (14-36) 01/18/24 03:58
ALT 33 U/L (0-35) 01/18/24 03:58
Alkaline Phosphatase 131 U/L (38-126) H 01/18/24 03:58
Most recent labs reviewed.
Micro Results:
01/15/24 11:39 Blood Culture - Preliminary
Blood/Venous Yeast
Gram Stain - Final
01/16/24 04:52 Blood Culture - Preliminary
Blood/Venous No Growth in 48 hours- Final report to follow
01/16/24 04:52 Blood Culture - Preliminary
Blood/Venous No Growth in 48 hours- Final report to follow
01/14/24 11:29 Blood Culture - Final
Blood/Venous Yeast
Gram Stain - Final
01/14/24 11:21 Blood Culture - Final
Blood/Venous Escherichia coli
Yeast
Gram Stain - Final
01/14/24 11:22 Fungus Mold Identification - Pending
Blood/Venous
01/14/24 11:34 Urine Culture - Final
Urine
Care Review
Plan reviewed with: Physician (Dr. Bardales)
[2024-01-18] MEDS: MYCAMINE 105 MG IV (11:05)
--- NOTE | 2024-01-18 11:40 | W.PN.CARDCBS ---
Today's Communication / Plan
-
Lasix on hold with renal sufficiency
Patient remains on 3 L but weight is less than admission weight
May need more diuresis but await nephrology input
Check echo
Impression / Plan
-
PCP: Alxe Rao
Rolling Attendant: None prior to admission, initial consultation Dr. Foy
Impression:
Presented 01/14/2024 with fever, chills
Septic shock due to bacteremia
s/p kidney stone manipulation and stent exchange 01/13, with urgent stent placement 12/2023
E. coli bacteremia + fungemia likely with Shama
Lactic acidosis due to above
Acute respiratory failure with hypoxia likely due to sepsis with acute organ dysfunction
Acute heart failure with unknown ejection fraction
Abnormal troponin, suspect nonischemic myocardial injury
Acute kidney injury
None anion gap metabolic acidosis due to lactic acidosis + acute kidney injury
Anemia
Thrombocytopenia
Nonischemic myocardial injury with peak troponin of 0.271
DM type II
Hyperlipidemia
Urine stone with hydronephrosis
History of recurrent UTI
Kidney stones
Thyroid nodule
Plan:
She had evidence of CHF on admission
Lasix has been on hold by nephrology with renal insufficiency
Creatinine has improved to 1.5
Weights may not be accurate and weight is currently 3 pounds less than admission
Remains on 3 L and may need more diuresis but await nephrology input
Check echocardiogram
PREADMIT DATA
Patient is a 73-year-old female with past medical history significant for type 2 diabetes, hyperlipidemia, history of UTIs, urine stone with hydronephrosis and kidney stones who recently had obstructive uropathy requiring urgent stent placement in
[facility] in December 2023 who underwent stone manipulation and stent exchange by urology on 01/14/2024. Postprocedure she developed fevers and chills with abnormal colored urine and presented to emergency department with sepsis. Patient
required pressors on admission secondary to septic shock and hypotension. She was found to have fungemia and E. coli bacteremia and was placed on antibiotics by ID. Patient was given IV fluid resuscitation and was noted to have progressively
worsening shortness of breath associated with cough and weight gain and now requires 3 L of oxygen. Patient was noted to have OLGA with creatinine initially 0.9 raising to 1.9 at peak. Due to shortness of breath and increased oxygen demand chest
x-ray was performed 01/16/2024 which showed mild acute interstitial and alveolar cardiogenic pulmonary edema with mildly decreased bilateral lung volumes and mild cardiomegaly. proBNP was noted to be elevated at 10,200. Initial troponin was
undetectable however repeat 0.270. EKG showed sinus rhythm with occasional PVCs. Cardiology being asked to see patient given abnormal troponin and elevated proBNP. At time of this evaluation patient lying in bed wearing 3 L of oxygen. She feels
short of breath at times, has difficulty taking a deep breath and has a dry cough. Patient denies chest pain or palpitations.
Progress Note - Rolling Attendant
Subjective
Date of Service: January 18, 2024
No complaints. Sitting in chair
Objective
Labs:
01/18/24 03:58
01/18/24 03:58
Labs
Hgb 8.7 g/dL (12.0-16.0) L 01/18/24 03:58
Hct 28.0 % (37.0-47.0) L 01/18/24 03:58
Plt Count 69 10^3/uL (130-400) L 01/18/24 03:58
PT 13.6 Sec (11.4-14.6) 01/18/24 03:58
INR 1.06 01/18/24 03:58
APTT 53.1 Sec (23.4-35.0) H 01/17/24 03:02
Sodium 140 mmol/L (135-145) 01/18/24 03:58
Potassium 3.7 mmol/L (3.5-5.1) 01/18/24 03:58
BUN 47 mg/dl (7-17) H 01/18/24 03:58
Creatinine 1.5 mg/dL (0.6-1.0) H 01/18/24 03:58
Glucose 79 mg/dl (70-99) 01/18/24 03:58
Troponins
01/16/24 01/16/24 01/17/24
08:53 17:53 00:57
Troponin I 0.270 H* 0.271 H* 0.243 H*
Vital Signs and I&O:
Vital Signs
Temp Pulse Resp BP Pulse Ox
97.5 F 77 13 136/81 95
01/18/24 11:36 01/18/24 06:00 01/18/24 06:00 01/18/24 04:00 01/18/24 06:00
Vital Signs
Temp Pulse Resp BP Pulse Ox
97.5 F 77 13 136/81 95
01/18/24 11:36 01/18/24 06:00 01/18/24 06:00 01/18/24 04:00 01/18/24 06:00
Intake & Output
01/16/24 01/17/24 01/18/24 01/19/24
06:59 06:59 06:59 06:59
Intake Total 2237.5 / 2337.5 630 / 630 700 / 700
Output Total 1000 / 1600 3090 / 3190 2885 / 2885
Balance 1237.5 / 737.5 -2460 / -2560 -2185 / -2185
Physical Exam
Physical Exam
General: Well developed, well nourished in NAD.
Neck: Supple, no JVD, HJR, carotids +2 B/L, no bruits bilaterally.
Heart: Non displaced PMI, RRR, no murmurs, No S3, S4, no rubs.
Lungs: Scattered rhonchi
Extremities: No clubbing, cyanosis or edema bilaterally.
Neuro: Grossly nonfocal, awake, alert and oriented x3.
[2024-01-18 11:55] LABS: Glucose - Point of Care 98 mg/dl (70-99)
--- NOTE | 2024-01-18 12:15 | PTCARENOTE ---
Pt. transported via stretcher w volunteer to MRI on classroom monitor. Awaiting pt return back to unit.
--- NOTE | 2024-01-18 14:05 | PN.CDI ---
CDI
- -
CDI:
Physician Documentation Request
Admit Date: 01/14/24 12:52
Dear Doctor Bardales,
Please review the following and provide your response in the progress notes.
The purpose of this query is not to question medical judgement, but to ensure the accuracy of the conditions reported for your patient.
Diagnosis: Acute Hypoxic Respiratory Failure
The diagnosis is documented in the record on 01/15 progress note and then throughout the record.
There is either a lack of clinical support for this condition in the current medical record, or there is a lack of recognized standard criteria to support the condition.
Clinical indicators:
Progress note 01/15 ,'acute hypoxemic resp failure due to sepsis--on 2L O2 NC with sats 97%...'
Supervisor Stitching Department consult, ' Acute respiratory failure with hypoxia likely due to sepsis with acute organ dysfunction...Maintain SpO2 >90-94% with supplemental O2; wean to off if possible as it seems to be on currently for patient comfort..'
Supervisor Stitching Department progress note 01/16, ' Respiratory: Wheeze (negative), Crackles (Bilaterally (R >L)), Rhonchi (n) and Accessory Resp Muscle Use (n)...'
The request is for one of the following:
- Additional documentation to support the condition. Indicate if this is in lieu of what may be considered standard criteria, and/or support why the standard criteria may not be present for this patient.
- A more appropriate diagnosis, reflecting the patient's condition
- Diagnosis Acute Hypoxic respiratory Failure remains a known or suspected condition for this patient and is further supported by (include additional documentation in the medical record)
- Diagnosis Acute Hypoxic respiratory Failure has been ruled out and a more appropriate diagnosis for this patient's condition is .
- Other (please specify)
Use of terms such as suspected, likely, concern for, or probable (associated with a specific diagnosis that is being evaluated, monitored, or treated as if it exists) are acceptable and can be coded in the inpatient setting, when documented at the
time of discharge.
Thank you,
Theresa Correa RN
CDI Specialist
Bogata text
Please use your independent medical judgment in providing your response.
--- NOTE | 2024-01-18 14:17 | PTCARENOTE ---
Received pt back from MRI, assisted x 1 w RW from stretcher to chair @ 1330. C/O PROCTOR, SpO2 98% on 2LNC, unable to wean O2 @ this time. Instructed on IS/deep breathing exercises; demonstrates understanding. Call elizabeth placed back w in reach. Safe
environment maintained.
--- NOTE | 2024-01-18 15:48 | CM ---
CM reviewed chart- ADC >48 hours
Pt downgraded to tele level of care
PT/OT following with recommendations of SNF vs VN; however ambulation not assessed today
Bedside meeting with pt- SNF PAC provided
Noted CM will continue to follow for dc planning and help determine dc needs
Follow therapy and ambulation assessments to determine needs
Pt will require [employer] auth if SNF needed on dc
Discharge Disposition- SNF vs home with VN
--- NOTE | 2024-01-18 16:52 | PTCARENOTE ---
Pt. transported via wheelchair on [employer] w belongings w this RN to rm 412, bed 2. Report given to 4E RN, daughter updated on rm change. No further needs from this RN.
[2024-01-18 17:27] LABS: Glucose - Point of Care 111 mg/dl (70-99)
--- NOTE | 2024-01-18 17:39 | CON.MD ---
Consultation - Medical
-
Hearing loss
Pt admitted c urosepsis
Stated her hearing in the right ear is worse than the left for 2 weeks
On my questioning, the hearing loss is old, and not as sure about recent changes
Also c/o CARLSON, no pulsatile tinnitus
Had MRI which shows microvascular ischemic changes, and tortuous vessel near cochlea on right
No acute ischemia or lesion
Pt awake and alert, no distress, no dizziness
TM's clear bilat
A/P Hearing loss
Questionable asymmetry, but no evidence of fluid behind TM, infection, lesion or acute ischemic event
Have pt follow up as outpt for audiogram to better evaluate
[2024-01-18] MEDS: TYLENOL 650 MG PO (18:09)
[2024-01-18 21:10] LABS: Glucose - Point of Care 102 mg/dl (70-99)
[2024-01-19] VITALS (7 sets, daily range): BP systolic 141–168; BP diastolic 54–77
[2024-01-19] MEDS: ANCEF 5 IV ×2 (02:43→13:35)
[2024-01-19] MEDS: TYLENOL 650 MG PO ×3 (02:48→19:39)
[2024-01-19 06:39] LABS: % Basophils 0.3 % (0-2); % Eosinophils 2.1 % (0-6); % Immature Granulocytes 1.8 % (0-0.5); % Lymphocytes 12.4 % (20.5-51.1); % Monocytes 8.3 % (1.7-9.3); % Neutrophils 75.1 % (42.2-75.2); Absolute Eosinophils 0.2 10^3/uL (0-0.7); Absolute Immature Granulocytes 0.2 10^3/uL (0-0.05); Absolute Lymphocytes 1.1 10^3/uL (1.2-3.4); Absolute Monocytes 0.7 10^3/uL (0.1-0.6); Absolute Neutrophils 6.6 10^3/uL (1.4-6.5); Hematocrit 30.3 % (37.0-47.0); Hemoglobin 9.3 g/dL (12.0-16.0); Mean Corp Hgb Conc. 30.7 g/dL (33.0-37.0); Mean Corpuscular Hgb 29.1 pg (27.0-31.0); Mean Corpuscular Volume 94.7 fL (81.0-99.0); Mean Platelet Volume 11.5 fL (7.4-10.4); Nucleated Red Blood Cells % 0 %; Platelet Count 76 10^3/uL (130-400); Red Cell Dist. Width 14.7 % (11.5-14.5); White Blood Cell Count 8.8 10^3/uL (4.8-10.8)
[2024-01-19 06:48] LABS: ALT (SGPT) 23 U/L (0-35); AST (SGOT) 30 U/L (14-36); Albumin 2.7 g/dl (3.5-5.0); Alkaline Phosphatase 138 U/L (38-126); Blood Urea Nitrogen 38 mg/dl (7-17); Calcium 8.7 mg/dl (8.4-10.2); Carbon Dioxide 28 mmol/L (22-30); Chloride 104 mmol/L (98-107); Estimated Creatinine Clearance 38 ml/min; Glucose 85 mg/dl (70-99); Magnesium 2.3 mg/dl (1.6-2.3); Sodium 138 mmol/L (135-145); Total Bilirubin 0.8 mg/dl (0.2-1.3); Total Protein 5.9 g/dl (6.3-8.2); eGFR 43.69
[2024-01-19 08:08] LABS: Glucose - Point of Care 107 mg/dl (70-99)
[2024-01-19] MEDS: NOVOLOG FLEXPEN-LOW RESISTANCE SC ×2 (08:18→12:41)
[2024-01-19] MEDS: CRESTOR 10 MG PO (09:59)
[2024-01-19] MEDS: NSS (PRESERVATIVE FREE) 10 ML IV (09:59)
[2024-01-19] MEDS: MYCAMINE 105 MG IV (10:00)
[2024-01-19] MEDS: PROTONIX IV 40 MG IV (10:00)
--- NOTE | 2024-01-19 10:13 | W.PN.ID1 ---
Date of Service
Date of Service: January 19, 2024
Today's Communication
Xray right knee.
Assessment / Plan
# Fungemia- source
# E. coli bacteremia - source
# s/p Septic shock immediately post urological procedure stone manipulation/R ureter stent exchange
# Right knee pain and edema
-Fever resolved
-Leukocytosis resolved
-TTE technically difficult stidy EF 55%
-Repeat bcx's today.
- Continue micafungin (d5) pending identification of yeast.
-Continue cefazolin 1g IV q12 (d6)
-Check XRAY of right knee
# OLGA - improving
# Acute CHF
#Additional Past Medical History:
DM2
Macular degeneration
Nephrolithiasis
HLD
thyroid nodule
Chief Complaint
-: Clinical Sepsis, UTI and Other (Fungemia)
Subjective / Review of Systems
c/o right knee arthritis flare.
No change in vision or hearing.
Vital Signs / Physical Exam
Vital Signs
Vital Signs
Temp Pulse Resp BP Pulse Ox
98.0 F 78 20 150/71 98
01/19/24 07:50 01/19/24 07:50 01/19/24 07:50 01/19/24 07:50 01/19/24 07:50
Physical Exam
Constitutional: No Acute Distress
Pulmonary: Clear (anteriorly)
Gastrointestinal: Soft, Non Tender and Non Distended
Genito-Urinary: Rachel and Clear Urine
Musculoskeletal: Other (right knee + edema, ROM limited due to pain)
Neurological: AO x 3
Objective Data
Lab Data
Lab Results
01/19/24 05:37
01/19/24 05:37
PT 13.6 Sec (11.4-14.6) 01/18/24 03:58
INR 1.06 01/18/24 03:58
APTT 53.1 Sec (23.4-35.0) H 01/17/24 03:02
Estimated Creat Clear 38 ml/min 01/19/24 05:37
Lactic Acid 1.0 mmol/L (0.7-2.0) 01/17/24 03:02
Total Bilirubin 0.8 mg/dl (0.2-1.3) 01/19/24 05:37
AST 30 U/L (14-36) 01/19/24 05:37
ALT 23 U/L (0-35) 01/19/24 05:37
Alkaline Phosphatase 138 U/L (38-126) H 01/19/24 05:37
Most recent labs reviewed.
Micro Results:
01/16/24 04:52 Blood Culture - Preliminary
Blood/Venous Yeast
Gram Stain - Preliminary
01/19/24 09:15 Blood Culture - Pending
Blood/Venous
01/19/24 08:33 Blood Culture - Pending
Blood/Venous
01/19/24 05:37 Blood Culture - Pending
Blood/Venous
01/16/24 04:52 Blood Culture - Preliminary
Blood/Venous No Growth in 72 hours- Final report to follow
01/14/24 11:22 Fungus Mold Identification - Preliminary
Blood/Venous
01/15/24 11:39 Blood Culture - Preliminary
Blood/Venous Yeast
Gram Stain - Final
01/14/24 11:29 Blood Culture - Final
Blood/Venous Yeast
Gram Stain - Final
01/14/24 11:21 Blood Culture - Final
Blood/Venous Escherichia coli
Yeast
Gram Stain - Final
01/14/24 11:34 Urine Culture - Final
Urine
--- NOTE | 2024-01-19 10:21 | W.PN.HOSP.TC ---
Today's Communication/Plan
-
see plan
Assessment / Plan
Assessment / Plan
Ms. Jacqui Don is a 73 yo woman with hx DM II, recent complicated UTI with nephrolithiasis s/p stent placement 12/31 s/p stent exchange on 01/14/24 wtih post-op course complicated by fever found to have septic shock 2/2 UTI.
TTE 01/18/24
CONCLUSIONS
1. Technically difficult study.
2. Grossly normal left ventricular size and systolic function without obvious
wall motion abnormalities. Estimated left ventricular ejection fraction is 55%
by visual estimation.
2. Normal right ventricular size and systolic function.
3. No significant valvular abnormalities.
4. No significant pericardial effusion.
Septic Shock 2/2 complicated UTI
Fungemia - source
E. Coli Bacteremia
-s/p ureteroscopy/stone manipulation/stent exchange 01/13
-now off pressors
-appreciate ID
-continue IV Cefazolin and Micafungin
-follow blood cultures until clear (01/15 blood cx positive)
-appreciate Urology
-continue flomax
-do not resume Farxiga at DC
-ophtho follow up at DC
Right Ear hearing loss
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
-appreciate ENT eval
-outpatient audiogram
Frontal Headache
Tension CARLSON
-in setting of hospitalization, acute illness
-tylenol PRN
-patient has lightheadedness with small movements, suspect deconditioning/effect of acute illness. no vertigo
acute hypoxemic resp failure
Acute Heart failure with unknown EF
-s/p diuresis
-appreciate cardiology and renal evals
-lasix on hold
-TTE results above
OLGA
-creat bumped from admission 0.9 to 1.8
-goins placed on 01/15
-lasix held, remains net negative +
-renal function continues to improve)
non-gapped metabolic acidosis (resolved)
-pt has been vomiting/diarrhea so could be GI losses (or iatrogenic from IVF administration)
coagulopathy/thrombocytopenia
-INR down from 1.6 to 1.2 (no anticoagulation)--fibrinogen above normal at 467--argues against early DIC--D-Dimer (fibrin split products) elevated but had surgery...not concerned for PE--hold on CT scan
-PLT count improving today
n/v--improved
-advance diet today
non WI Troponin elevation
-TTE results above
Anemia likely chronic disease/dilutional from IVF
-No active bleeding
- ferritin, folate, TIBC show anemia of chronic disease
-Continue to monitor
thrombocytopenia
-HIT assay sent and heparin on hold; scoring = 1-2 - low probability
hypocalcemia--corrected for albumin is 9.2--hold on repletion
Type 2 diabetes--Sliding scale--Carb controlled diet
Hyperlipidemia--Statin continued
DVT prophylaxis-- SCD
CODE STATUS--Full code
PT/OT - eventual SNF
51 minutes spent on patient evaluation, medical decision making, coordination of care
Anticipated Discharge: > 48 hours
Subjective/Interval History
-
Date of Service: January 19, 2024
feeling hungry today wants to eat
less dizziness but still present
chronic right knee pain
Objective Data
-
Labs:
Laboratory Results
01/19/24
05:37
WBC 8.8
Hgb 9.3 L
Hct 30.3 L
Plt Count 76 L
Sodium 138
Potassium 4.0
Chloride 104
Carbon Dioxide 28
BUN 38 H
Creatinine 1.3 H
Glucose 85
Calcium 8.7
Total Bilirubin 0.8
AST 30
ALT 23
Alkaline Phosphatase 138 H
Vital Signs:
Vital Signs
Temp Pulse Resp BP Pulse Ox
98.0 F 78 20 150/71 98
01/19/24 07:50 01/19/24 07:50 01/19/24 07:50 01/19/24 07:50 01/19/24 07:50
I&O
01/18/24 01/19/24 01/20/24
06:59 06:59 06:59
Intake Total 700 / 700 1520 / 1520
Output Total 2885 / 2885 1100 / 1100
Balance -2185 / -2185 420 / 420
Review of Systems
-
History Source: Patient
All other systems: Reviewed and negative
Physical Exam
-
General: No Apparent Distress
HEENT: Normocephalic, Atraumatic, Oxygen and Other (ear without erythema or discharge)
Respiratory: Clear to Auscultation; Negative Wheezes or Rhonchi
Cardiac: Regular Rhythm and S1/S2; Negative Murmur
GI: Soft, Nontender, Nondistended and Normal Bowel Sounds
Musculoskeletal: No Clubbing and No Cyanosis; Negative No Edema (1+ LE edema bilaterally)
Neuro: Awake and Alert
Psych: Calm
Data Reviewed
-
Diagnostic Radiology: Report Reviewed by me
Labs: Labs Reviewed by me
[2024-01-19 11:20] LABS: Stone Analysis Mass 3 mg
--- NOTE | 2024-01-19 12:02 | W.PN.URO.CBU ---
Today's Communication / Plan
-
IV Cefazolin and Micafungin per ID
No indication to continue tamsulosin (discontinued 4 days ago)
Plan for (outpatient) repeat UCx and preop antibiotic prophylaxis prior to stone surgery in 3-4 weeks
Assessment / Plan
-
Urosepsis s/p ureteroscopy/stone manipulation/stent exchange 01/13
H/o E. Coli urosepsis and obstructive uropathy s/p right stent (12/05/23, [facility])
H/o E. Coli + enterobacter UTI
Candidemia
01/13: s/p right ureteroscopy/stone manipulation/stent exchange
WBC normalized
Cr downtrending (OLGA secondary to Lasix diuresis, baseline Cr WNL)
Diagnosis
-
Date of Service: January 19, 2024
-
Patient Diagnosis:
Urosepsis s/p ureteroscopy/stone manipulation/stent exchange 01/13
H/o E. Coli urosepsis and obstructive uropathy s/p right stent (12/05/23, [facility])
H/o E. Coli + Enterobacter UTI
Candidemia
Post Op Day:
01/13: s/p right ureteroscopy/stone manipulation/stent exchange
Subjective
-
Afebrile.
Feeling subjectively much better.
On O2 - weaning down requirement.
Notes appetite for solid food.
Objective
-
Vital Signs
Temp Pulse Resp BP Pulse Ox
98.0 F 78 20 150/71 98
01/19/24 07:50 01/19/24 07:50 01/19/24 07:50 01/19/24 07:50 01/19/24 07:50
Intake and Output
01/18/24 01/19/24 01/20/24
06:59 06:59 06:59
Intake Total 700 / 700 1520 / 1520
Output Total 2885 / 2885 1100 / 1100
Balance -2185 / -2185 420 / 420
Intake:
Oral fluids 600 / 600 1320 / 1320
IV piggybacks 100 / 100 200 / 200
Output:
Urine, Rachel 2885 / 2885 1100 / 1100
Laboratory Results
01/19/24 05:37
01/19/24 05:37
Physical Exam
-
General - well developed, well nourished, no acute distress
Chest - on O2 NC
Abdomen - soft, non-tender, no CVAT
Skin - warm & dry with no rash
Neuro - AOx3, no motor deficits
Extremities - no clubbing, no cyanosis, no edema
Counseling
-
Discussed plan of care w/ patient.
Updated daughter (Arlyn).
Care Review
Data Reviewed
Discussed with: Hospitalist and Family
--- NOTE | 2024-01-19 12:06 | W.PN.CARDCBS ---
Addendum entered and electronically signed by Stevie Driscoll MD 01/19/24 13:57:
I saw and examined the patient.
The PHERESIS SPECIALIST or PA's note was reviewed and I agree with the note.
Comment: General: Well developed, well nourished in NAD.
Neck: Supple, no JVD, HJR, carotids +2 B/L, no bruits bilaterally.
Heart: Non displaced PMI, RRR, no murmurs, No S3, S4, no rubs.
Lungs: Scattered rhonchi
Extremities: No clubbing, cyanosis or edema bilaterally.
Neuro: Grossly nonfocal, awake, alert and oriented x3.
Renal function continues to improve with holding diuretics. Cr is 1.3 on 01/18. proBNP had improved dramatically from 10,200 to 3260. She remains on 4 L of oxygen. Will check chest x-ray.? She could be aspirating.? Will need home O2.
Original Note:
Today's Communication / Plan
-
Continue IV antibiotics per ID
Improving renal function
Wean oxygen as tolerated
Impression / Plan
-
PCP: Alex Rao
Showroom Salesperson: None prior to admission, initial consultation Dr. Foy
Impression:
Presented 01/14/2024 with fever, chills
Septic shock due to bacteremia
s/p kidney stone manipulation and stent exchange 01/13, with urgent stent placement 12/2023
E. coli bacteremia + fungemia likely with Shama
Lactic acidosis due to above
Acute respiratory failure with hypoxia likely due to sepsis with acute organ dysfunction
Acute heart failure with unknown ejection fraction
Abnormal troponin, suspect nonischemic myocardial injury
Acute kidney injury
None anion gap metabolic acidosis due to lactic acidosis + acute kidney injury
Anemia
Thrombocytopenia
Nonischemic myocardial injury with peak troponin of 0.271
DM type II
Hyperlipidemia
Urine stone with hydronephrosis
History of recurrent UTI
Kidney stones
Thyroid nodule
Echo 01/18/2024: EF 55%, no significant valvular abnormalities
Plan:
-Presented 01/14/2024 with fevers and chills after renal stone manipulation and stent exchange noted to have E. coli bacteremia and Fungemia
-ID following continue Micafungin and meropenem; fever and leukocytosis resolved; repeat biopsies ordered for 01/19/2024
-Noted to have worsening shortness of breath with increased oxygen demand on presentation, chest x-ray with mild acute interstitial and alveolar pulmonary edema concerning for acute on chronic heart failure with preserved ejection fraction, proBNP
10,200 on 01/16/2024.
-Weight down several pounds since admission. Only got 1 dose of IV Lasix 01/15/14 then held by nephrology secondary to OLGA
-Echo as noted above with preserved ejection fraction and no significant valvular disease
-Improving creatinine, initially 1.9 now 1.3
-Remains on 2 L wean as tolerated
-Renal ultrasound 01/18/2024 with nonobstructing bilateral renal stones
-Avoid nephrotoxic drugs. Per nephrology SGLT2 inhibitor remains on hold and do not restart
-Abnormal troponin, suspect nonischemic myocardial injury secondary to sepsis and OLGA. Peaked at 0.270. EKG stable without ischemic changes, QTc stable at 425 ms. Patient denies chest pain.
-Mildly elevated heart rates at time. Suspect secondary to sepsis, OLGA and heart failure. Hopefully will improve with diuresis
-BP stable off pressors. Patient was not on antihypertensive agents prior to admission.
HPI 01/16/24:
Patient is a 73-year-old female with past medical history significant for type 2 diabetes, hyperlipidemia, history of UTIs, urine stone with hydronephrosis and kidney stones who recently had obstructive uropathy requiring urgent stent placement in
[facility] in December 2023 who underwent stone manipulation and stent exchange by urology on 01/14/2024. Postprocedure she developed fevers and chills with abnormal colored urine and presented to emergency department with sepsis. Patient
required pressors on admission secondary to septic shock and hypotension. She was found to have fungemia and E. coli bacteremia and was placed on antibiotics by ID. Patient was given IV fluid resuscitation and was noted to have progressively
worsening shortness of breath associated with cough and weight gain and now requires 3 L of oxygen. Patient was noted to have OLGA with creatinine initially 0.9 raising to 1.9 at peak. Due to shortness of breath and increased oxygen demand chest
x-ray was performed 01/16/2024 which showed mild acute interstitial and alveolar cardiogenic pulmonary edema with mildly decreased bilateral lung volumes and mild cardiomegaly. proBNP was noted to be elevated at 10,200. Initial troponin was
undetectable however repeat 0.270. EKG showed sinus rhythm with occasional PVCs. Cardiology being asked to see patient given abnormal troponin and elevated proBNP. At time of this evaluation patient lying in bed wearing 3 L of oxygen. She feels
short of breath at times, has difficulty taking a deep breath and has a dry cough. Patient denies chest pain or palpitations.
Progress Note - Showroom Salesperson
Subjective
Date of Service: January 19, 2024
Patient seen and examined. Patient reports that she is feeling better. Now with improved appetite. Still requiring oxygen.
Objective
Labs:
01/19/24 05:37
01/19/24 05:37
Labs
Hgb 9.3 g/dL (12.0-16.0) L 01/19/24 05:37
Hct 30.3 % (37.0-47.0) L 01/19/24 05:37
Plt Count 76 10^3/uL (130-400) L 01/19/24 05:37
PT 13.6 Sec (11.4-14.6) 01/18/24 03:58
INR 1.06 01/18/24 03:58
APTT 53.1 Sec (23.4-35.0) H 01/17/24 03:02
Sodium 138 mmol/L (135-145) 01/19/24 05:37
Potassium 4.0 mmol/L (3.5-5.1) 01/19/24 05:37
BUN 38 mg/dl (7-17) H 01/19/24 05:37
Creatinine 1.3 mg/dL (0.6-1.0) H 01/19/24 05:37
Glucose 85 mg/dl (70-99) 01/19/24 05:37
Troponins
01/16/24 01/17/24
17:53 00:57
Troponin I 0.271 H* 0.243 H*
Vital Signs and I&O:
Vital Signs
Temp Pulse Resp BP Pulse Ox
98.0 F 78 20 150/71 98
01/19/24 07:50 01/19/24 07:50 01/19/24 07:50 01/19/24 07:50 01/19/24 07:50
Vital Signs
Temp Pulse Resp BP Pulse Ox
98.0 F 78 20 150/71 98
01/19/24 07:50 01/19/24 07:50 01/19/24 07:50 01/19/24 07:50 01/19/24 07:50
Intake & Output
01/17/24 01/18/24 01/19/24 01/20/24
06:59 06:59 06:59 06:59
Intake Total 630 / 630 700 / 700 1520 / 1520
Output Total 3090 / 3190 2885 / 2885 1100 / 1100
Balance -2460 / -2560 -2185 / -2185 420 / 420
Physical Exam
Physical Exam
GEN: No distress, awake, Ox3; sitting in chair wearing oxygen
HEENT: supple, anicteric, mmm
LUNGS: Mildly diminished otherwise CTA, no wheezes/rales
CV: Reg, S1/S2, no murmur, rub or gallop
ABD: soft, BS+, NT/ND
EXT: No edema, clubbing or cyanosis
NEURO: Gross non-focal
SKIN: No rash, warm, dry, pink
[2024-01-19 12:39] LABS: Glucose - Point of Care 98 mg/dl (70-99)
--- NOTE | 2024-01-19 15:57 | W.PN.NEPH.PH ---
Today's Communication / Plan
-
Follow BMP
Holding Lasix
Goins is maintained
Assessment/Plan
-
IMP:
OLGA-baseline cr 0.9
(US small left kidney 09/2023)
septic shock
Fungemia
E coli bacteremia
Non gap met acidosis
Neutropenia-resolved
s/Post ureteroscopy sepsis (History of stent exchanged and replaced 01/13 and Recent stent placement in [place] 12/2023)
acute hypoxemic resp failure
Anemia
thrombocytopenia
hypocalcemia-corrected normal for alb
Type 2 diabetes
Hyperlipidemia
Thyroid nodule
Plan;
A/w sepsis post urological procedure
Remains on micafungin and cefazolin for urosepsis
septic shock-fungemia, E coli bacteremia-ID follows
OLGA-in setting of sepsis, UA with hematuria, pyuria still sample post procedure- Fena 1.5
creatinine improved to 1.3 and grosssly non oliguric
possible ATN, unlikely AIN with early rise of cr, checked U eosinophils (negative)
non oliguric with goins, checked renal US(small left kidney in [place] 09/2023)f: Bilateral kidney stones, no obstruction, smaller left kidney
non gap met acidosis resolved
hypervolemia with pulmonary edema-wean O2 as possible, echo: Notes preserved LV function without motion abnormalities normal right and left ventricular size no valvular abnormalities
dose meds renally
Chest x-ray reviewed no evidence of congestive heart failure
avoid nephrotoxins and DO NOT RESUME Farxiga(was on home list)
new c/o hearing issues bilat, reportedly had mild symp TRIM SETTER but cleared now returned since yesterday associated with dizziness-mgt per primary
holding lasix, weight stable
d/w pt and nursing
-
-
Date of Service: January 19, 2024
CC / HPI / ROS
-
Chief Complaint:
OLGA
History of Present Illness:
cr no change at 13
Hemodynamically stable
Remains on micafungin and cefazolin for urosepsis
Review of Systems:
no cp or sob at rest
goins in and nonoliguric
allowed for liquid diet but poor po intake
c/o dizziness and hearing impairment bilat since 01/15, reportedly had ringing TRIM SETTER improved after admit until sym returned more since yesterday
Labs
-
Labs:
WBC 8.8 10^3/uL (4.8-10.8) 01/19/24 05:37
RBC 3.20 10^6/uL (4.20-5.40) L 01/19/24 05:37
Hgb 9.3 g/dL (12.0-16.0) L 01/19/24 05:37
Hct 30.3 % (37.0-47.0) L 01/19/24 05:37
Plt Count 76 10^3/uL (130-400) L 01/19/24 05:37
Sodium 138 mmol/L (135-145) 01/19/24 05:37
Potassium 4.0 mmol/L (3.5-5.1) 01/19/24 05:37
Chloride 104 mmol/L (98-107) 01/19/24 05:37
Carbon Dioxide 28 mmol/L (22-30) 01/19/24 05:37
BUN 38 mg/dl (7-17) H 01/19/24 05:37
Creatinine 1.3 mg/dL (0.6-1.0) H 01/19/24 05:37
eGFR 43.69 01/19/24 05:37
Glucose 85 mg/dl (70-99) 01/19/24 05:37
Calcium 8.7 mg/dl (8.4-10.2) 01/19/24 05:37
Phosphorus 3.5 mg/dl (2.5-4.5) 01/18/24 03:58
Pon-V-Ucjwobiqiyi Pept 3260 pg/ml 01/18/24 03:58
Albumin 2.7 g/dl (3.5-5.0) L 01/19/24 05:37
Physical Exam
-
Vital Signs:
Vital Signs
Temp Pulse Resp BP Pulse Ox
98.4 F 78 18 159/54 98
01/19/24 11:40 01/19/24 11:40 01/19/24 11:40 01/19/24 11:40 01/19/24 11:40
Cardiovascular:: Regular rate and rhythm
Respiratory:: Bilateral: CTA (Decreased breath sounds to bases)
Lung Excursion:: Normal
Abdomen:: Nontender
Bowel Sounds:: Normal
Extremity Edema:: None: Bilateral:
Goins Catheter: Yes
[2024-01-19 16:46] LABS: Glucose - Point of Care 177 mg/dl (70-99)
[2024-01-19] MEDS: NOVOLOG FLEXPEN-LOW RESISTANCE 1 UNITS SC (17:49)
[2024-01-19 21:37] LABS: Glucose - Point of Care 214 mg/dl (70-99)
[2024-01-20] VITALS (8 sets, daily range): BP systolic 139–167; BP diastolic 61–68; PULSE 80–81; O2SAT 94
[2024-01-20] MEDS: ANCEF 5 IV ×3 (02:53→21:41)
[2024-01-20] MEDS: ZOFRAN 4 MG IV (02:58)
--- NOTE | 2024-01-20 03:00 | PTCARENOTE ---
pt woke c/o feeling nauseous, and c/o back, neck, and knee pain. administered Tylenol, Zofran, and cool compress and ice pack. reevaluated and pt asleep.
[2024-01-20] MEDS: TYLENOL 650 MG PO ×2 (06:01→10:35)
[2024-01-20 07:36] LABS: % Basophils 0.6 % (0-2); % Eosinophils 1.1 % (0-6); % Immature Granulocytes 4.3 % (0-0.5); % Lymphocytes 15.9 % (20.5-51.1); % Monocytes 12.5 % (1.7-9.3); % Neutrophils 65.6 % (42.2-75.2); Absolute Basophils 0.1 10^3/uL (0-0.2); Absolute Eosinophils 0.1 10^3/uL (0-0.7); Absolute Immature Granulocytes 0.4 10^3/uL (0-0.05); Absolute Lymphocytes 1.4 10^3/uL (1.2-3.4); Absolute Monocytes 1.1 10^3/uL (0.1-0.6); Absolute Neutrophils 5.6 10^3/uL (1.4-6.5); Hematocrit 29.8 % (37.0-47.0); Hemoglobin 9.3 g/dL (12.0-16.0); Mean Corp Hgb Conc. 31.2 g/dL (33.0-37.0); Mean Corpuscular Volume 92.8 fL (81.0-99.0); Mean Platelet Volume 11.1 fL (7.4-10.4); Nucleated Red Blood Cells % 0 %; Platelet Count 103 10^3/uL (130-400); Red Blood Cell Count 3.21 10^6/uL (4.20-5.40); Red Cell Dist. Width 14.6 % (11.5-14.5); White Blood Cell Count 8.5 10^3/uL (4.8-10.8)
[2024-01-20 07:54] LABS: Blood Urea Nitrogen 30 mg/dl (7-17); Calcium 8.7 mg/dl (8.4-10.2); Carbon Dioxide 28 mmol/L (22-30); Chloride 102 mmol/L (98-107); Estimated Creatinine Clearance 55 ml/min; Glucose 144 mg/dl (70-99); Potassium 4.2 mmol/L (3.5-5.1); Sodium 138 mmol/L (135-145); eGFR > 60.00
[2024-01-20 08:01] LABS: Glucose - Point of Care 148 mg/dl (70-99)
[2024-01-20] MEDS: NSS (PRESERVATIVE FREE) 10 ML IV (08:24)
[2024-01-20] MEDS: PROTONIX IV 40 MG IV (08:24)
[2024-01-20] MEDS: NOVOLOG FLEXPEN-LOW RESISTANCE SC (08:24)
[2024-01-20] MEDS: CRESTOR 10 MG PO (08:24)
--- NOTE | 2024-01-20 10:08 | W.PN.CARDCBS ---
Addendum entered and electronically signed by Sy Quintana MD 01/20/24 12:33:
I saw and examined the patient.
The Cork Floor Installer's note was reviewed and I agree with the note.
Comment:
GEN: No distress, awake, Ox3
HEENT: supple, anicteric, mmm
LUNGS: CTA, no wheezes/rales
CV: Reg, S1/S2, 08/15 syst LSB, no murmur
ABD: soft, BS+, NT/ND
EXT: No edema
NEURO: Gross non-focal
SKIN: No rash
Plan:
Creatinine has normalized. Volume status overall appears stable.
Continue antibiotics.
Stable for discharge from cardiology standpoint.
Original Note:
Today's Communication / Plan
-
Check magnesium level
Check ECG
Continue IV antibiotics per ID
Impression / Plan
-
PCP: Alex Rao
Environmental Field Team Member: None prior to admission, initial consultation Dr. Foy
Impression:
Presented 01/14/2024 with fever, chills
Septic shock due to bacteremia
s/p kidney stone manipulation and stent exchange 01/13, with urgent stent placement 12/2023
E. coli bacteremia + fungemia likely with Shama
Lactic acidosis due to above
Acute respiratory failure with hypoxia likely due to sepsis with acute organ dysfunction
Acute heart failure with unknown ejection fraction
Abnormal troponin, suspect nonischemic myocardial injury
Acute kidney injury
None anion gap metabolic acidosis due to lactic acidosis + acute kidney injury
Anemia
Thrombocytopenia
Nonischemic myocardial injury with peak troponin of 0.271
DM type II
Hyperlipidemia
Urine stone with hydronephrosis
History of recurrent UTI
Kidney stones
Thyroid nodule
Echo 01/18/2024: EF 55%, no significant valvular abnormalities
Plan:
-Presented 01/14/2024 with fevers and chills after renal stone manipulation and stent exchange noted to have E. coli bacteremia and Fungemia
-ID following continue Micafungin and meropenem; fever and leukocytosis resolved; repeat BC 01/19/2024 no growth in 24 hours
-Noted to have worsening shortness of breath with increased oxygen demand on presentation, chest x-ray with mild acute interstitial and alveolar pulmonary edema concerning for acute on chronic heart failure with preserved ejection fraction, proBNP
10,200 on 01/16/2024. Repeat CXR 01/18 improved edema and repeat proBNP improved to 3260
-Acute heart failure likely secondary to aggressive fluid resuscitation in setting of sepsis.
-Weight down several pounds since admission and 2 lbs overnight. Only got 1 dose of IV Lasix 01/15/14 then held by nephrology secondary to OLGA
-Echo as noted above with preserved ejection fraction and no significant valvular disease
-Improving creatinine, initially 1.9 now 1.3
-Weaned off oxygen. Shortness of breath improved.
-Renal ultrasound 01/18/2024 with nonobstructing bilateral renal stones
-Avoid nephrotoxic drugs. Per nephrology SGLT2 inhibitor remains on hold and do not restart at this time
-Abnormal troponin, suspect nonischemic myocardial injury secondary to sepsis and OLGA. Peaked at 0.270. EKG stable without ischemic changes, QTc stable at 425 ms. Patient denies chest pain.
-Mildly elevated heart rates at time. Suspect secondary to sepsis, OLGA and heart failure. Hopefully will improve with diuresis
-BP stable off pressors and now mildly elevated. Patient was not on antihypertensive agents prior to admission. Continue to monitor.
-4 beats of NSVT noted on telemetry. Potassium 4.2. Will check magnesium
HPI 01/16/24:
Patient is a 73-year-old female with past medical history significant for type 2 diabetes, hyperlipidemia, history of UTIs, urine stone with hydronephrosis and kidney stones who recently had obstructive uropathy requiring urgent stent placement in
[facility] in December 2023 who underwent stone manipulation and stent exchange by urology on 01/14/2024. Postprocedure she developed fevers and chills with abnormal colored urine and presented to emergency department with sepsis. Patient
required pressors on admission secondary to septic shock and hypotension. She was found to have fungemia and E. coli bacteremia and was placed on antibiotics by ID. Patient was given IV fluid resuscitation and was noted to have progressively
worsening shortness of breath associated with cough and weight gain and now requires 3 L of oxygen. Patient was noted to have OLGA with creatinine initially 0.9 raising to 1.9 at peak. Due to shortness of breath and increased oxygen demand chest
x-ray was performed 01/16/2024 which showed mild acute interstitial and alveolar cardiogenic pulmonary edema with mildly decreased bilateral lung volumes and mild cardiomegaly. proBNP was noted to be elevated at 10,200. Initial troponin was
undetectable however repeat 0.270. EKG showed sinus rhythm with occasional PVCs. Cardiology being asked to see patient given abnormal troponin and elevated proBNP. At time of this evaluation patient lying in bed wearing 3 L of oxygen. She feels
short of breath at times, has difficulty taking a deep breath and has a dry cough. Patient denies chest pain or palpitations.
Progress Note - Environmental Field Team Member
Subjective
Date of Service: January 20, 2024
Objective
Labs:
01/20/24 05:31
01/20/24 05:31
Labs
Hgb 9.3 g/dL (12.0-16.0) L 01/20/24 05:31
Hct 29.8 % (37.0-47.0) L 01/20/24 05:31
Plt Count 103 10^3/uL (130-400) L D 01/20/24 05:31
PT 13.6 Sec (11.4-14.6) 01/18/24 03:58
INR 1.06 01/18/24 03:58
APTT 53.1 Sec (23.4-35.0) H 01/17/24 03:02
Sodium 138 mmol/L (135-145) 01/20/24 05:31
Potassium 4.2 mmol/L (3.5-5.1) 01/20/24 05:31
BUN 30 mg/dl (7-17) H 01/20/24 05:31
Creatinine 0.9 mg/dL (0.6-1.0) 01/20/24 05:31
Glucose 144 mg/dl (70-99) H 01/20/24 05:31
Vital Signs and I&O:
Vital Signs
Temp Pulse Resp BP Pulse Ox
98.4 F 79 14 149/64 93
01/20/24 07:55 01/20/24 07:55 01/20/24 07:55 01/20/24 07:55 01/20/24 07:55
Vital Signs
Temp Pulse Resp BP Pulse Ox
98.4 F 79 14 149/64 93
01/20/24 07:55 01/20/24 07:55 01/20/24 07:55 01/20/24 07:55 01/20/24 07:55
Intake & Output
01/18/24 01/19/24 01/20/24 01/21/24
06:59 06:59 06:59 06:59
Intake Total 700 / 700 1520 / 1520 1080 / 1080
Output Total 2885 / 2885 1100 / 1100 1250 / 1250
Balance -2185 / -2185 420 / 420 -170 / -170
Physical Exam
Physical Exam
GEN: No distress, awake, Ox3;
HEENT: supple, anicteric, mmm
LUNGS: CTA bilaterally, no wheezes/rales
CV: Reg, S1/S2, no murmur, rub or gallop
ABD: soft, BS+, NT/ND
EXT: No edema, clubbing or cyanosis
NEURO: Gross non-focal
SKIN: No rash, warm, dry, pink
[2024-01-20] MEDS: MYCAMINE 105 MG IV (10:27)
--- NOTE | 2024-01-20 10:38 | W.PN.HOSP.TC ---
Addendum entered and electronically signed by Courtney Bardales MD 01/21/24 09:37:
Diagnosis Acute Hypoxic respiratory Failure has been ruled out and a more appropriate diagnosis for this patient's condition is acute hypoxic resp insufficiency
Addendum entered and electronically signed by Courtney Bardales MD 01/20/24 10:46:
right knee pain
osteoarthritis
-exam not worrisome for septic joint
-chronic issue
-trial of Bengay
-continue PT/OT
Original Note:
Today's Communication/Plan
-
see plan
Assessment / Plan
Assessment / Plan
Ms. Jacqui Don is a 73 yo woman with hx DM II, recent complicated UTI with nephrolithiasis s/p stent placement 12/31 s/p stent exchange on 01/14/24 wt post-op course complicated by fever found to have septic shock 2/2 UTI.
TTE 01/18/24
CONCLUSIONS
1. Technically difficult study.
2. Grossly normal left ventricular size and systolic function without obvious
wall motion abnormalities. Estimated left ventricular ejection fraction is 55%
by visual estimation.
2. Normal right ventricular size and systolic function.
3. No significant valvular abnormalities.
4. No significant pericardial effusion.
Septic Shock 2/2 complicated UTI
Fungemia - source
E. Coli Bacteremia
-s/p ureteroscopy/stone manipulation/stent exchange 01/13
-now off pressors
-appreciate ID
-continue IV Cefazolin and Micafungin
-follow blood cultures until clear (01/15 blood cx positive yeast)
-appreciate Urology
-continue flomax
-do not resume Farxiga at DC
-ophtho follow up at DC
Right Ear hearing loss
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
-appreciate ENT eval
-outpatient audiogram
Frontal Headache
Tension CARLSON
-in setting of hospitalization, acute illness
-tylenol PRN
-patient has lightheadedness with small movements, suspect deconditioning/effect of acute illness. no vertigo
acute hypoxemic resp failure
Acute Heart failure with unknown EF
-s/p diuresis and patient now euvolemic
-appreciate cardiology and renal evals
-lasix on hold
-TTE results above, EF 55%
-patient now on room air
OLGA
-creat bumped from admission 0.9 to 1.8
-lasix held and creatinine back to baseline this AM
non-gapped metabolic acidosis (resolved)
-pt has been vomiting/diarrhea so could be GI losses (or iatrogenic from IVF administration)
-vomiting/diarrhea resolved
coagulopathy/thrombocytopenia
-INR down from 1.6 to 1.2 (no anticoagulation)--fibrinogen above normal at 467--argues against early DIC--D-Dimer (fibrin split products) elevated but had surgery...not concerned for PE--hold on CT scan
-PLT count improving today
n/v--improved
-advance diet today
non NV Troponin elevation
-TTE results above
Anemia likely chronic disease/dilutional from IVF
-No active bleeding
- ferritin, folate, TIBC show anemia of chronic disease
-Continue to monitor
thrombocytopenia
-HIT assay sent and heparin on hold; scoring = 1-2 - low probability
hypocalcemia--corrected for albumin is 9.2--hold on repletion
Type 2 diabetes--Sliding scale--Carb controlled diet
Hyperlipidemia--Statin continued
DVT prophylaxis-- hep ab neg and PLT improving - start lovenox again
CODE STATUS--Full code
PT/OT - eventual SNF
51 minutes spent on patient evaluation, medical decision making, coordination of care
Anticipated Discharge: > 48 hours
Subjective/Interval History
-
Date of Service: January 20, 2024
feeling better
eating breakfast
right knee pain improving
Objective Data
-
Labs:
Laboratory Results
01/20/24
05:31
WBC 8.5
Hgb 9.3 L
Hct 29.8 L
Plt Count 103 L D
Sodium 138
Potassium 4.2
Chloride 102
Carbon Dioxide 28
BUN 30 H
Creatinine 0.9
Glucose 144 H
Calcium 8.7
Vital Signs:
Vital Signs
Temp Pulse Resp BP Pulse Ox
98.4 F 79 14 149/64 93
01/20/24 07:55 01/20/24 07:55 01/20/24 07:55 01/20/24 07:55 01/20/24 07:55
I&O
01/19/24 01/20/24 01/21/24
06:59 06:59 06:59
Intake Total 1520 / 1520 1080 / 1080
Output Total 1100 / 1100 1250 / 1250
Balance 420 / 420 -170 / -170
Review of Systems
-
History Source: Patient
All other systems: Reviewed and negative
Physical Exam
-
General: No Apparent Distress
HEENT: Normocephalic, Atraumatic, Oxygen and Other (ear without erythema or discharge)
Respiratory: Clear to Auscultation; Negative Wheezes or Rhonchi
Cardiac: Regular Rhythm and S1/S2; Negative Murmur
GI: Soft, Nontender, Nondistended and Normal Bowel Sounds
Musculoskeletal: No Clubbing, No Cyanosis and Other (right knee mild swelling, no redness, not significantly tender to touch ); Negative No Edema (1+ LE edema bilaterally)
Neuro: Awake and Alert
Psych: Calm
Data Reviewed
-
Diagnostic Radiology: Report Reviewed by me
Labs: Labs Reviewed by me
[2024-01-20 10:53] LABS: Magnesium 2.1 mg/dl (1.6-2.3)
[2024-01-20] MEDS: BenGay-Like 1 APPLIC TOPICAL ×3 (11:06→21:41)
[2024-01-20 11:39] LABS: Glucose - Point of Care 237 mg/dl (70-99)
[2024-01-20] MEDS: NOVOLOG FLEXPEN-LOW RESISTANCE 2 UNITS SC (12:15)
--- NOTE | 2024-01-20 14:12 | W.PN.ID1 ---
Date of Service
Date of Service: January 20, 2024
Today's Communication
See below.
Assessment / Plan
# Shama glabrata fungemia- source
# E. coli bacteremia - source
# s/p Septic shock immediately post urological procedure stone manipulation/R ureter stent exchange
-Fever resolved
-Leukocytosis resolved
-TTE technically difficult stidy EF 55%
- 01/18 Repeat bcx's x3 neg to date
- Continue micafungin through 02/01/24.
Home infusion sheet submitted to case management.
Place midline when blood cx's neg 48 to 72h
-Continue cefazolin 1g IV q8 (d7) for now.
At time of discharge, transition cefazolin to cipro 500mg po bid through 01/28/24
# Right knee pain and edema - ?pseudogout
- XRAY: Moderate to severe tricompartmental osteoarthritis with joint space narrowing, subchondral sclerosis and prominent marginal osteophytes. Tricompartmental chondrocalcinosis. Small suprapatellar joint effusion.
# OLGA - resolved
# Acute CHF
- on furosemide
#Additional Past Medical History:
DM2
Macular degeneration
Nephrolithiasis
HLD
thyroid nodule
Chief Complaint
-: Clinical Sepsis, UTI and Other (Fungemia)
Subjective / Review of Systems
Sleepy
Vital Signs / Physical Exam
Vital Signs
Vital Signs
Temp Pulse Resp BP Pulse Ox
97.8 F 81 20 143/61 94
01/20/24 11:35 01/20/24 11:35 01/20/24 11:35 01/20/24 11:35 01/20/24 11:35
Physical Exam
Constitutional: No Acute Distress
Cardiovascular: Regular Rate and S1/S2
Gastrointestinal: Soft, Non Tender and Non Distended
Musculoskeletal: Joint Swelling (stable right knee)
Objective Data
Lab Data
Lab Results
01/20/24 05:31
01/20/24 05:31
PT 13.6 Sec (11.4-14.6) 01/18/24 03:58
INR 1.06 01/18/24 03:58
APTT 53.1 Sec (23.4-35.0) H 01/17/24 03:02
Estimated Creat Clear 55 ml/min 01/20/24 05:31
Lactic Acid 1.0 mmol/L (0.7-2.0) 01/17/24 03:02
Total Bilirubin 0.8 mg/dl (0.2-1.3) 01/19/24 05:37
AST 30 U/L (14-36) 01/19/24 05:37
ALT 23 U/L (0-35) 01/19/24 05:37
Alkaline Phosphatase 138 U/L (38-126) H 01/19/24 05:37
Most recent labs reviewed.
Micro Results:
01/14/24 11:22 Fungus Mold Identification - Final
Blood/Venous Nakaseomyces glabrata
01/19/24 09:15 Blood Culture - Preliminary
Blood/Venous No Growth in 24 hours- Final report to follow
01/19/24 08:33 Blood Culture - Preliminary
Blood/Venous No Growth in 24 hours- Final report to follow
01/19/24 05:37 Blood Culture - Preliminary
Blood/Venous No Growth in 24 hours- Final report to follow
01/16/24 04:52 Blood Culture - Preliminary
Blood/Venous No Growth in 4 days- Final report to follow
01/16/24 04:52 Blood Culture - Preliminary
Blood/Venous Yeast
Gram Stain - Preliminary
01/15/24 11:39 Blood Culture - Preliminary
Blood/Venous Yeast
Gram Stain - Final
01/14/24 11:29 Blood Culture - Final
Blood/Venous Yeast
Gram Stain - Final
01/14/24 11:21 Blood Culture - Final
Blood/Venous Escherichia coli
Yeast
Gram Stain - Final
01/14/24 11:34 Urine Culture - Final
Urine
--- NOTE | 2024-01-20 15:00 | W.PN.NEPH.PH ---
Today's Communication / Plan
-
observe
Assessment/Plan
-
IMP:
OLGA-baseline cr 0.9
(US small left kidney 09/2023)
septic shock
Fungemia
E coli bacteremia
Non gap met acidosis
Neutropenia-resolved
s/Post ureteroscopy sepsis (History of stent exchanged and replaced 01/13 and Recent stent placement in [place] 12/2023)
acute hypoxemic resp failure
Anemia
thrombocytopenia
hypocalcemia-corrected normal for alb
Type 2 diabetes
Hyperlipidemia
Thyroid nodule
Plan;
A/w sepsis post urological procedure
Remains on micafungin and cefazolin for urosepsis
septic shock-fungemia, E coli bacteremia-ID follows
OLGA-in setting of sepsis, UA with hematuria, pyuria still sample post procedure- Fena 1.5
creatinine improved to 0.9-baseline and grosssly non oliguric
checked U eosinophils (negative)
checked renal US(small left kidney in [place] 09/2023)f: Bilateral kidney stones, no obstruction, smaller left kidney
non gap met acidosis resolved
hypervolemia with pulmonary edema-no lasix needed at this time on RA
echo: Notes preserved LV function without motion abnormalities normal right and left ventricular size no valvular abnormalities
DO NOT RESUME Farxiga(was on home list)
probably ok for VT
d/w pt
will s/o, call with ?s, f/u nephro if needed
-
-
Date of Service: January 20, 2024
CC / HPI / ROS
-
Chief Complaint:
OLGA
History of Present Illness:
cr better at 0.9
Hemodynamically stable
Remains on micafungin and cefazolin for urosepsis
Review of Systems:
no cp or sob at rest
Labs
-
Labs:
WBC 8.5 10^3/uL (4.8-10.8) 01/20/24 05:31
RBC 3.21 10^6/uL (4.20-5.40) L 01/20/24 05:31
Hgb 9.3 g/dL (12.0-16.0) L 01/20/24 05:31
Hct 29.8 % (37.0-47.0) L 01/20/24 05:31
Plt Count 103 10^3/uL (130-400) L D 01/20/24 05:31
Sodium 138 mmol/L (135-145) 01/20/24 05:31
Potassium 4.2 mmol/L (3.5-5.1) 01/20/24 05:31
Chloride 102 mmol/L (98-107) 01/20/24 05:31
Carbon Dioxide 28 mmol/L (22-30) 01/20/24 05:31
BUN 30 mg/dl (7-17) H 01/20/24 05:31
Creatinine 0.9 mg/dL (0.6-1.0) 01/20/24 05:31
eGFR > 60.00 01/20/24 05:31
Glucose 144 mg/dl (70-99) H 01/20/24 05:31
Calcium 8.7 mg/dl (8.4-10.2) 01/20/24 05:31
Phosphorus 3.5 mg/dl (2.5-4.5) 01/18/24 03:58
Yep-J-Mxsoxogxccx Pept 3260 pg/ml 01/18/24 03:58
Albumin 2.7 g/dl (3.5-5.0) L 01/19/24 05:37
Physical Exam
-
Vital Signs:
Vital Signs
Temp Pulse Resp BP Pulse Ox
97.8 F 81 20 143/61 94
01/20/24 11:35 01/20/24 11:35 01/20/24 11:35 01/20/24 11:35 01/20/24 11:35
Cardiovascular:: Regular rate and rhythm
Respiratory:: Bilateral: CTA
Lung Excursion:: Normal
Abdomen:: Nontender and Soft
Extremity Edema:: None: Bilateral:
Rachel Catheter: Yes
--- NOTE | 2024-01-20 16:03 | CM ---
I met with Jacqui to discuss discharge plans. Her preference is to return home with the IV ABX if she feels able to do so with family support. She has options to go to her own home with her son to assist, or go to her daughter's home which is one
level.
CM will follow to assist with discharge plans to home vs. SNF (2nd choice).
PLAN: SNF vs home with VN
[2024-01-20 16:45] LABS: Glucose - Point of Care 196 mg/dl (70-99)
[2024-01-20] MEDS: NOVOLOG FLEXPEN-LOW RESISTANCE 1 UNITS SC (16:48)
[2024-01-20] MEDS: LOVENOX 40 MG SC (18:06)
[2024-01-20 21:35] LABS: Glucose - Point of Care 188 mg/dl (70-99)
[2024-01-21 00:15] VITALS: BP 168/78
[2024-01-21] MEDS: TYLENOL 650 MG PO ×2 (01:44→09:32)
[2024-01-21 03:54] VITALS: BP 145/62
[2024-01-21 04:13] VITALS: BMI 33.3
[2024-01-21 05:46] LABS: % Basophils 0.5 % (0-2); % Immature Granulocytes 4.5 % (0-0.5); % Lymphocytes 23.3 % (20.5-51.1); % Monocytes 12.4 % (1.7-9.3); % Neutrophils 58.3 % (42.2-75.2); Absolute Eosinophils 0.1 10^3/uL (0-0.7); Absolute Immature Granulocytes 0.4 10^3/uL (0-0.05); Absolute Monocytes 1.1 10^3/uL (0.1-0.6); Hematocrit 27.9 % (37.0-47.0); Hemoglobin 8.9 g/dL (12.0-16.0); Mean Corp Hgb Conc. 31.9 g/dL (33.0-37.0); Mean Corpuscular Hgb 29.3 pg (27.0-31.0); Mean Corpuscular Volume 91.8 fL (81.0-99.0); Mean Platelet Volume 10.5 fL (7.4-10.4); Nucleated Red Blood Cells % 0 %; Platelet Count 113 10^3/uL (130-400); Red Blood Cell Count 3.04 10^6/uL (4.20-5.40); Red Cell Dist. Width 14.6 % (11.5-14.5); White Blood Cell Count 8.6 10^3/uL (4.8-10.8)
[2024-01-21] MEDS: ANCEF 5 IV ×3 (05:57→21:29)
[2024-01-21 06:11] LABS: Blood Urea Nitrogen 27 mg/dl (7-17); Calcium 8.1 mg/dl (8.4-10.2); Carbon Dioxide 30 mmol/L (22-30); Chloride 104 mmol/L (98-107); Estimated Creatinine Clearance 49 ml/min; Glucose 148 mg/dl (70-99); Sodium 138 mmol/L (135-145); eGFR 59.86
[2024-01-21 07:55] VITALS: BP 169/80
--- NOTE | 2024-01-21 07:59 | W.PN.URO.CBU ---
Today's Communication / Plan
-
D/c Rachel catheter this AM (ordered)
IV Cefazolin => transition to PO Cipro on d/c per ID (through 01/27)
F/U in 2-3 weeks for preop visit and to check repeat UCx
Plan for outpatient URS/LL/stone extraction/stent exchange in 1 mo after confirmation of sterile tract
Assessment / Plan
-
Urosepsis s/p ureteroscopy/stone manipulation/stent exchange 01/13
H/o E. Coli urosepsis and obstructive uropathy s/p right stent (12/05/23, [facility])
H/o E. Coli + enterobacter UTI
Candidemia
01/13: s/p right ureteroscopy/stone manipulation/stent exchange
WBC wnl
Cr wnl (OLGA secondary to Lasix diuresis, baseline Cr WNL)
Diagnosis
-
Date of Service: January 21, 2024
-
Patient Diagnosis:
Urosepsis s/p ureteroscopy/stone manipulation/stent exchange 01/13
H/o E. Coli urosepsis and obstructive uropathy s/p right stent (12/05/23, [facility])
H/o E. Coli + Enterobacter UTI
Candidemia
Post Op Day:
01/13: s/p right ureteroscopy/stone manipulation/stent exchange
Subjective
-
Afebrile.
Tolerating diet.
Energy level improved.
Rachel catheter w/ clear yellow output.
Objective
-
Vital Signs
Temp Pulse Resp BP Pulse Ox
99.0 F 78 18 145/62 95
01/21/24 03:54 01/21/24 03:54 01/21/24 03:54 01/21/24 03:54 01/21/24 03:54
Intake and Output
01/20/24 01/21/24 01/22/24
06:59 06:59 06:59
Intake Total 1080 / 1080 1030 / 1030
Output Total 1250 / 1250 100 / 100
Balance -170 / -170 930 / 930
Intake:
Oral fluids 1080 / 1080 660 / 660
IV fluids (Total) 250 / 250
IV piggybacks 120 / 120
Output:
Urine, Rachel 1250 / 1250
Urine, Voided 100 / 100
Other:
Number of approximated MODERATE 1
amounts of urine
Number of approximated LARGE 1
amounts of urine
Laboratory Results
01/21/24 05:32
01/21/24 05:32
Physical Exam
-
General - well developed, well nourished, no acute distress
Abdomen - soft, non-tender, no CVAT
Genitalia - normal, Rachel w/ clear UOP
Skin - warm & dry with no rash
Neuro - AOx3, no motor deficits
Extremities - no clubbing, no cyanosis, no edema
Counseling
-
Discussed plan of care w/ daughter (Arlyn).
[facility] paperwork completed on 01/20/24.
Care Review
Data Reviewed
Discussed with: Hospitalist and Family
[2024-01-21 08:03] LABS: Glucose - Point of Care 127 mg/dl (70-99)
[2024-01-21] MEDS: NOVOLOG FLEXPEN-LOW RESISTANCE SC (08:36)
[2024-01-21] MEDS: PROTONIX IV 40 MG IV (08:55)
[2024-01-21] MEDS: CRESTOR 10 MG PO (08:56)
[2024-01-21] MEDS: NSS (PRESERVATIVE FREE) 10 ML IV (08:56)
[2024-01-21] MEDS: BenGay-Like TOPICAL (08:57)
[2024-01-21] MEDS: MYCAMINE 105 MG IV (09:48)
--- NOTE | 2024-01-21 10:35 | W.PN.HOSP.TC ---
Today's Communication/Plan
-
see plan
Assessment / Plan
Assessment / Plan
Ms. Jacqui Don is a 73 yo woman with hx DM II, recent complicated UTI with nephrolithiasis s/p stent placement 12/31 s/p stent exchange on 01/14/24 wtih post-op course complicated by fever found to have septic shock 2/2 UTI.
TTE 01/18/24
CONCLUSIONS
1. Technically difficult study.
2. Grossly normal left ventricular size and systolic function without obvious
wall motion abnormalities. Estimated left ventricular ejection fraction is 55%
by visual estimation.
2. Normal right ventricular size and systolic function.
3. No significant valvular abnormalities.
4. No significant pericardial effusion.
Septic Shock 2/2 complicated UTI
Fungemia - source
E. Coli Bacteremia
-s/p ureteroscopy/stone manipulation/stent exchange 01/13
-now off pressors
-appreciate ID
-continue IV Cefazolin and Micafungin
-when ready for DC transition to Cipro 500mg PO BID; when blood cultures neg x [address] mid-line to complete Micafungin course
-follow blood cultures until clear (01/15 blood cx positive yeast)
-appreciate Urology
-continue flomax
-do not resume Farxiga at DC
-ophtho follow up at DC
-Urology follow up in 2-3 weeks with repeat urine culture, planning for outpatient URS/LL/stone extraction/stent exchange
Right Ear hearing loss
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
-appreciate ENT eval
-outpatient audiogram
Right Knee Pain
Severe Osteoarthritis seen on X-ray
-on exam knee is not warm or red, not tender to palpation
-patient with difficulty walking
-texted ortho and told to text rheumatology for further evaluation
-avoid steroids with recent infection
acute hypoxemic resp failure
Acute Heart failure with unknown EF
-s/p diuresis and patient now euvolemic
-appreciate cardiology and renal evals
-lasix on hold
-TTE results above, EF 55%
-patient now on room air
-no need for further lasix (iatrogenic fluid overload in sepsis)
OLGA
-creat bumped from admission 0.9 to 1.8
-lasix held and creatinine back to baseline now
non-gapped metabolic acidosis (resolved)
-pt has been vomiting/diarrhea so could be GI losses (or iatrogenic from IVF administration)
-vomiting/diarrhea resolved
coagulopathy/thrombocytopenia
-INR down from 1.6 to 1.2 (no anticoagulation)--fibrinogen above normal at 467--argues against early DIC--D-Dimer (fibrin split products) elevated but had surgery...not concerned for PE--hold on CT scan
-PLT count improving today
n/v--improved
-advance diet today
non [place] Troponin elevation
-TTE results above
Anemia likely chronic disease/dilutional from IVF
-No active bleeding
- ferritin, folate, TIBC show anemia of chronic disease
-Continue to monitor
thrombocytopenia
-HIT assay sent and heparin on hold; scoring = 1-2 - low probability
-thrombocytopenia likely 2/2 sepsis; PLT improving and subQ Lovenox resumed
hypocalcemia--corrected for albumin is 9.2--hold on repletion
Type 2 diabetes--Sliding scale--Carb controlled diet
Hyperlipidemia--Statin continued
DVT prophylaxis-- lovenox
CODE STATUS--Full code
PT/OT - eventual SNF although patient may refuse and then home infusion needs to be set up
51 minutes spent on patient evaluation, medical decision making, coordination of care
Anticipated Discharge: 24 - 48 hours
Subjective/Interval History
-
Date of Service: January 21, 2024
feeling better but now right knee pain with difficulty walking
no fevers/chills
Objective Data
-
Labs:
Laboratory Results
01/21/24
05:32
WBC 8.6
Hgb 8.9 L
Hct 27.9 L
Plt Count 113 L
Sodium 138
Potassium 4.0
Chloride 104
Carbon Dioxide 30
BUN 27 H
Creatinine 1.0
Glucose 148 H
Calcium 8.1 L
Vital Signs:
Vital Signs
Temp Pulse Resp BP Pulse Ox
98.7 F 79 16 169/80 94
01/21/24 07:55 01/21/24 07:55 01/21/24 07:55 01/21/24 07:55 01/21/24 07:55
I&O
01/20/24 01/21/24 01/22/24
06:59 06:59 06:59
Intake Total 1080 / 1080 1030 / 1030
Output Total 1250 / 1250 100 / 100
Balance -170 / -170 930 / 930
Review of Systems
-
History Source: Patient
All other systems: Reviewed and negative
Physical Exam
-
General: No Apparent Distress
HEENT: Normocephalic, Atraumatic, Oxygen and Other (ear without erythema or discharge)
Respiratory: Clear to Auscultation; Negative Wheezes or Rhonchi
Cardiac: Regular Rhythm and S1/S2; Negative Murmur
GI: Soft, Nontender, Nondistended and Normal Bowel Sounds
Musculoskeletal: No Clubbing, No Cyanosis and Other (right knee mild swelling, no redness, not significantly tender to touch ); Negative No Edema (1+ LE edema bilaterally)
Neuro: Awake and Alert
Psych: Calm
Data Reviewed
-
Diagnostic Radiology: Report Reviewed by me
Labs: Labs Reviewed by me
--- NOTE | 2024-01-21 10:55 | W.PN.UPDATE ---
Update Note
Progress Note Update
discussed case with Dr. Steve Reyes, Rheumatology. Likely pseudogout. Will trial colchicine 0.6 BID. would like to avoid steroids in setting fungemia
--- NOTE | 2024-01-21 11:09 | CM ---
Patient seen bedside, patient aware she will need IV antibiotics at home. Patient reports she would like to go home with services, is not agreeable to SNF. Patient reports she resides with her son, son is familiar with IV antibiotics as son has
provided care for his father in the past. Patient has not had VN in the past. CM faxed script and clinical information to [facility] to review benefits. CM will continue to follow for all discharge planning needs.
Plan; home with [facility] pending acceptance, will need VN agency of patients choice.
[2024-01-21] MEDS: COLCHICINE 0.599999999999999978 MG PO ×2 (11:28→21:29)
--- NOTE | 2024-01-21 11:46 | W.PN.ID1 ---
Date of Service
Date of Service: January 21, 2024
Today's Communication
DC planning. See below.
Assessment / Plan
# Shama glabrata fungemia- source
# E. coli bacteremia - source
# s/p Septic shock immediately post urological procedure stone manipulation/R ureter stent exchange
-TTE technically difficult study EF 55%
- 01/18 Repeat bcx's x3 neg to date x 48h
- Continue micafungin through 02/01/24.
Home infusion sheet submitted to case management.
Place midline when blood cx's neg x 72h
-Continue cefazolin 1g IV q8 (d8) for now.
At time of discharge, transition cefazolin to cipro 500mg po bid through 01/28/24
# Right knee pain and edema - ?pseudogout
- XRAY: Moderate to severe tricompartmental osteoarthritis with joint space narrowing, subchondral sclerosis and prominent marginal osteophytes. Tricompartmental chondrocalcinosis. Small suprapatellar joint effusion.
# OLGA - resolved
# Acute CHF
- on furosemide
#Additional Past Medical History:
DM2
Macular degeneration
Nephrolithiasis
HLD
thyroid nodule
Chief Complaint
-: Clinical Sepsis, UTI and Other (Fungemia)
Subjective / Review of Systems
No new complaints.
Vital Signs / Physical Exam
Vital Signs
Vital Signs
Temp Pulse Resp BP Pulse Ox
98.7 F 79 16 169/80 94
01/21/24 07:55 01/21/24 07:55 01/21/24 07:55 01/21/24 07:55 01/21/24 07:55
Physical Exam
Constitutional: No Acute Distress and Comfortable
Gastrointestinal: Soft, Non Tender and Non Distended
Musculoskeletal: Other (right knee - no erythema/warmth)
Neurological: AO x 3
Objective Data
Lab Data
Lab Results
01/21/24 05:32
01/21/24 05:32
PT 13.6 Sec (11.4-14.6) 01/18/24 03:58
INR 1.06 01/18/24 03:58
APTT 53.1 Sec (23.4-35.0) H 01/17/24 03:02
Estimated Creat Clear 49 ml/min 01/21/24 05:32
Lactic Acid 1.0 mmol/L (0.7-2.0) 01/17/24 03:02
Total Bilirubin 0.8 mg/dl (0.2-1.3) 01/19/24 05:37
AST 30 U/L (14-36) 01/19/24 05:37
ALT 23 U/L (0-35) 01/19/24 05:37
Alkaline Phosphatase 138 U/L (38-126) H 01/19/24 05:37
Most recent labs reviewed.
Micro Results:
01/19/24 09:15 Blood Culture - Preliminary
Blood/Venous No Growth in 48 hours- Final report to follow
01/19/24 08:33 Blood Culture - Preliminary
Blood/Venous No Growth in 48 hours- Final report to follow
01/19/24 05:37 Blood Culture - Preliminary
Blood/Venous No Growth in 48 hours- Final report to follow
01/16/24 04:52 Blood Culture - Final
Blood/Venous No Growth - Final Report
01/14/24 11:22 Fungus Mold Identification - Final
Blood/Venous Nakaseomyces glabrata
01/16/24 04:52 Blood Culture - Preliminary
Blood/Venous Yeast
Gram Stain - Preliminary
01/15/24 11:39 Blood Culture - Preliminary
Blood/Venous Yeast
Gram Stain - Final
01/14/24 11:29 Blood Culture - Final
Blood/Venous Yeast
Gram Stain - Final
01/14/24 11:21 Blood Culture - Final
Blood/Venous Escherichia coli
Yeast
Gram Stain - Final
01/14/24 11:34 Urine Culture - Final
Urine
Care Review
Plan reviewed with: Physician (Dr. Bardales)
[2024-01-21 11:47] LABS: Glucose - Point of Care 252 mg/dl (70-99)
[2024-01-21] MEDS: GLUCOTROL 2.5 MG PO (12:55)
[2024-01-21] MEDS: NOVOLOG FLEXPEN-LOW RESISTANCE 3 UNITS SC (12:56)
[2024-01-21 15:15] VITALS: BP 159/64
[2024-01-21] MEDS: BenGay-Like 1 APPLIC TOPICAL ×2 (15:44→21:29)
[2024-01-21 17:00] LABS: Glucose - Point of Care 198 mg/dl (70-99)
[2024-01-21] MEDS: NOVOLOG FLEXPEN-LOW RESISTANCE 1 UNITS SC (17:33)
[2024-01-21] MEDS: LOVENOX 40 MG SC (17:34)
[2024-01-21 19:53] VITALS: BP 120/73
[2024-01-21 21:17] LABS: Glucose - Point of Care 183 mg/dl (70-99)
[2024-01-21 23:30] VITALS: BP 157/63
[2024-01-22 03:30] VITALS: BP 168/65
[2024-01-22] MEDS: ANCEF 5 IV (05:39)
[2024-01-22 07:51] VITALS: BP 176/90
[2024-01-22 07:52] LABS: Blood Urea Nitrogen 22 mg/dl (7-17); Calcium 8.3 mg/dl (8.4-10.2); Carbon Dioxide 27 mmol/L (22-30); Chloride 106 mmol/L (98-107); Estimated Creatinine Clearance 54 ml/min; Glucose 141 mg/dl (70-99); Potassium 3.9 mmol/L (3.5-5.1); Sodium 137 mmol/L (135-145); eGFR > 60.00
[2024-01-22 08:01] LABS: Glucose - Point of Care 145 mg/dl (70-99)
[2024-01-22] MEDS: NOVOLOG FLEXPEN-LOW RESISTANCE SC (08:44)
[2024-01-22] MEDS: BenGay-Like TOPICAL (08:49)
[2024-01-22] MEDS: GLUCOTROL 2.5 MG PO (08:49)
[2024-01-22] MEDS: CRESTOR 10 MG PO (08:49)
[2024-01-22] MEDS: TYLENOL 650 MG PO (08:49)
[2024-01-22] MEDS: COLCHICINE 0.599999999999999978 MG PO (08:49)
[2024-01-22 10:06] VITALS: BP 170/75; PULSE 101; PULSE 78
[2024-01-22] MEDS: MYCAMINE 105 MG IV (10:21)
--- NOTE | 2024-01-22 10:54 | W.PN.HOSP.TC ---
Today's Communication/Plan
-
dispo planning
home infusion
Assessment / Plan
Assessment / Plan
Ms. Jacqui Don is a 73 yo woman with hx DM II, recent complicated UTI with nephrolithiasis s/p stent placement 12/31 s/p stent exchange on 01/14/24 wtih post-op course complicated by fever found to have septic shock 2/2 UTI.
TTE 01/18/24
CONCLUSIONS
1. Technically difficult study.
2. Grossly normal left ventricular size and systolic function without obvious
wall motion abnormalities. Estimated left ventricular ejection fraction is 55%
by visual estimation.
2. Normal right ventricular size and systolic function.
3. No significant valvular abnormalities.
4. No significant pericardial effusion.
Septic Shock 2/2 complicated UTI
Fungemia - source
E. Coli Bacteremia
-s/p ureteroscopy/stone manipulation/stent exchange 01/13
-now off pressors
-appreciate ID
-continue IV Cefazolin and Micafungin
-when ready for DC transition to Cipro 500mg PO BID; IV Micafungin through 02/01/24
-place midline today (blood cx neg x 72 hours)
-appreciate Urology
-continue flomax
-do not resume Farxiga at DC
-ophtho follow up at DC
-Urology follow up in 2-3 weeks with repeat urine culture, planning for outpatient URS/LL/stone extraction/stent exchange
Right Ear hearing loss
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
-appreciate ENT eval
-outpatient audiogram
Right Knee Pain
Severe Osteoarthritis seen on X-ray
-on exam knee is not warm or red, not tender to palpation
-patient with difficulty walking
-discussed case with rheumatology, likely pseudogout - colchicine initiated. patient tolerating
-avoid steroids with recent infection
acute hypoxemic resp failure
Acute Heart failure with unknown EF
-s/p diuresis and patient now euvolemic
-appreciate cardiology and renal evals
-lasix on hold
-TTE results above, EF 55%
-patient now on room air
-no need for further lasix (iatrogenic fluid overload in sepsis)
OLGA
-creat bumped from admission 0.9 to 1.8
-lasix held and creatinine back to baseline now
non-gapped metabolic acidosis (resolved)
-pt has been vomiting/diarrhea so could be GI losses (or iatrogenic from IVF administration)
-vomiting/diarrhea resolved
coagulopathy/thrombocytopenia
-INR down from 1.6 to 1.2 (no anticoagulation)--fibrinogen above normal at 467--argues against early DIC--D-Dimer (fibrin split products) elevated but had surgery...not concerned for PE--hold on CT scan
-PLT count improving today
n/v--improved
-advance diet today
non [place] Troponin elevation
-TTE results above
Anemia likely chronic disease/dilutional from IVF
-No active bleeding
- ferritin, folate, TIBC show anemia of chronic disease
-Continue to monitor
thrombocytopenia
-HIT assay sent and heparin on hold; scoring = 1-2 - low probability
-thrombocytopenia likely 2/2 sepsis; PLT improving and subQ Lovenox resumed
hypocalcemia--corrected for albumin is 9.2--hold on repletion
Type 2 diabetes--Sliding scale--Carb controlled diet
Hyperlipidemia--Statin continued
DVT prophylaxis-- lovenox
CODE STATUS--Full code
PT/OT - eventual SNF although patient may refuse and then home infusion needs to be set up
51 minutes spent on patient evaluation, medical decision making, coordination of care
Anticipated Discharge: Within 24 hours
Subjective/Interval History
-
Date of Service: January 22, 2024
feels tired this morning but ready to go home
states knee pain slightly improved
Objective Data
-
Labs:
Laboratory Results
01/22/24
07:00
Sodium 137
Potassium 3.9
Chloride 106
Carbon Dioxide 27
BUN 22 H
Creatinine 0.9
Glucose 141 H
Calcium 8.3 L
Vital Signs:
Vital Signs
Temp Pulse Resp BP Pulse Ox
99.0 F 88 18 176/90 95
01/22/24 07:51 01/22/24 07:51 01/22/24 07:51 01/22/24 07:51 01/22/24 08:30
I&O
01/21/24 01/22/24 01/23/24
06:59 06:59 06:59
Intake Total 1030 / 1030
Output Total 100 / 100
Balance 930 / 930
Review of Systems
-
History Source: Patient
All other systems: Reviewed and negative
Physical Exam
-
General: No Apparent Distress
HEENT: Normocephalic, Atraumatic, Oxygen and Other (ear without erythema or discharge)
Respiratory: Clear to Auscultation; Negative Wheezes or Rhonchi
Cardiac: Regular Rhythm and S1/S2; Negative Murmur
GI: Soft, Nontender, Nondistended and Normal Bowel Sounds
Musculoskeletal: No Clubbing, No Cyanosis and Other (right knee mild swelling, no redness, not significantly tender to touch ); Negative No Edema (1+ LE edema bilaterally)
Neuro: Awake and Alert
Psych: Calm
Data Reviewed
-
Diagnostic Radiology: Report Reviewed by me
Labs: Labs Reviewed by me
[2024-01-22 11:10] VITALS: BP 147/69
--- NOTE | 2024-01-22 11:24 | CM ---
Addendum entered by Laney Gallo 01/22/24 15:38:
Patient sent updated Mid[facility] information to [facility], spoke to Maggie. [facility] will deliver supplies tonight, will be out tomorrow morning to do a teaching. Patient provided walker. Patients son to provide transportation home. CM reviewed
IMM, signed, placed in chart. CM will continue to follow for all discharge planning needs.
Plan; home with [facility] and [facility].
Original Note:
Patient seen bedside, discussed patient medically clear for discharge, awaiting to hear from [facility] in regards to home infusion delivery. Patient reports she has no history with VN, agreeable to referral to [facility], TT sent to [facility]N. Patient will
need a script for a walker upon discharge. Midline ordered, will fax to [facility] once placed. CM will update patient once CM hears from [facility] and VN. Patient reports her son will be home with her.
Plan; home with [facility] and [facility] pending acceptance/availability.
[2024-01-22 12:05] LABS: Glucose - Point of Care 216 mg/dl (70-99)
--- NOTE | 2024-01-22 12:22 | W.PN.ID1 ---
Date of Service
Date of Service: January 22, 2024
Today's Communication
Place midline.
DC planning.
Assessment / Plan
# Shama glabrata fungemia- source
# E. coli bacteremia - source
# s/p Septic shock immediately post urological procedure stone manipulation/R ureter stent exchange
-TTE technically difficult study EF 55%
- 01/18 Repeat bcx's x3 neg to date x 72h
- Continue micafungin through 02/01/24.
Home infusion sheet submitted to case management.
Place midline today
-Continue cefazolin 1g IV q8 (d8) for now.
At time of discharge, transition cefazolin to cipro 500mg po bid through 01/28/24
# Right knee pain and edema - ?pseudogout
- XRAY: Moderate to severe tricompartmental osteoarthritis with joint space narrowing, subchondral sclerosis and prominent marginal osteophytes. Tricompartmental chondrocalcinosis. Small suprapatellar joint effusion.
- On colchicine with improvement
# OLGA - resolved
#Additional Past Medical History:
DM2
Macular degeneration
Nephrolithiasis
HLD
thyroid nodule
Chief Complaint
-: Clinical Sepsis, UTI and Other (Fungemia)
Subjective / Review of Systems
No new complaints. No visual change.
Vital Signs / Physical Exam
Vital Signs
Vital Signs
Temp Pulse Resp BP Pulse Ox
98.0 F 79 18 147/69 97
01/22/24 11:10 01/22/24 11:10 01/22/24 11:10 01/22/24 11:10 01/22/24 11:10
Physical Exam
Constitutional: No Acute Distress
Cardiovascular: Regular Rate and S1/S2
Pulmonary: Clear
Gastrointestinal: Soft, Non Tender and Non Distended
Neurological: AO x 3
Objective Data
Lab Data
Lab Results
01/21/24 05:32
01/22/24 07:00
PT 13.6 Sec (11.4-14.6) 01/18/24 03:58
INR 1.06 01/18/24 03:58
APTT 53.1 Sec (23.4-35.0) H 01/17/24 03:02
Estimated Creat Clear 54 ml/min 01/22/24 07:00
Lactic Acid 1.0 mmol/L (0.7-2.0) 01/17/24 03:02
Total Bilirubin 0.8 mg/dl (0.2-1.3) 01/19/24 05:37
AST 30 U/L (14-36) 01/19/24 05:37
ALT 23 U/L (0-35) 01/19/24 05:37
Alkaline Phosphatase 138 U/L (38-126) H 01/19/24 05:37
Most recent labs reviewed.
Micro Results:
01/19/24 09:15 Blood Culture - Preliminary
Blood/Venous No Growth in 72 hours- Final report to follow
01/19/24 08:33 Blood Culture - Preliminary
Blood/Venous No Growth in 72 hours- Final report to follow
01/19/24 05:37 Blood Culture - Preliminary
Blood/Venous No Growth in 72 hours- Final report to follow
01/16/24 04:52 Blood Culture - Final
Blood/Venous No Growth - Final Report
01/14/24 11:22 Fungus Mold Identification - Final
Blood/Venous Nakaseomyces glabrata
01/16/24 04:52 Blood Culture - Preliminary
Blood/Venous Yeast
Gram Stain - Preliminary
01/15/24 11:39 Blood Culture - Preliminary
Blood/Venous Yeast
Gram Stain - Final
01/14/24 11:29 Blood Culture - Final
Blood/Venous Yeast
Gram Stain - Final
01/14/24 11:21 Blood Culture - Final
Blood/Venous Escherichia coli
Yeast
Gram Stain - Final
01/14/24 11:34 Urine Culture - Final
Urine
[2024-01-22] MEDS: NOVOLOG FLEXPEN-LOW RESISTANCE 2 UNITS SC (12:41)
--- NOTE | 2024-01-22 13:03 | VNURNOTE ---
Home Health Liaison met with patient at 1200 to discuss [facility] nurse/therapy, visits, schedule and homebound status. Patient is agreeable and understands that visits at home will be 2-3 x per week to assess and teach medical management. Patient has a
scale and is able to log a daily weight.
[facility] brochure provided with contact information. Patient is aware that [facility] will contact her for start of care in 1-2 days after discharge from .
[facility] referral completed in [facility].
--- NOTE | 2024-01-22 14:05 | W.DS.TRANS ---
DC Summary - [employer]
-
Discharge Instructions:
Discharge Diagnosis/Procedures Fungemia and Bacteremia status post urological
procedure resulting in septic shock
Diet Diabetic, Carb Controlled
Activity As tolerated
Driving Restrictions As prior to admission
Bathing Restrictions None
Blood Work CBC and CMP as written on home infusion order
set
Other Services VN,PT,OT
Instructions:
Stand-Alone Forms:
Changes to Home Medications: Yes
Discharge Medications:
DC Medications w/original date entered in [employer]
rosuvastatin 10 mg tablet 10 mg PO DAILY High Cholesterol 10/05/23
tamsulosin 0.4 mg capsule 0.4 mg PO HS Urinary Issue 01/14/24
Micafungin Sodium [Mycamine] 100 mg 105 mls/hr IV Q24H 01/22/24
ciprofloxacin HCl 500 mg tablet (Cipro) 500 mg PO Q12H #13 tabs 01/22/24
colchicine 0.6 mg tablet 0.6 mg PO BID #20 tabs 01/22/24
glipizide 5 mg tablet 5 mg PO DAILY #30 tabs 01/22/24
methyl salicylate 15 %-menthol 10 % topical cream (Arthritis Hot Pain Relief) 1 applic topical TID #85 grams 01/22/24
Home Medication Changes
Take Ciprofloxacin 500mg twice a day through 01/28/24
Your IV Micafungin course is through 02/01/24.
Take Colchicine 0.6 twice a day for right knee pain. Ok to stop if knee pain resolves. Follow up closely with your PCP.
Stop current Glipizide dosing as I'm worried your blood sugars are going too low at home. You were only on 2.5mg here with reasonable blood sugars and your A1c is 6.8%. Glipizide 10mg twice a day is replaced with 5mg daily. Follow up closely with
your PCP.
Stop Farxiga given risk of UTI on this medication
Stop NSAIDs (Naproxen, Aleve, Advil). Take sparingly as they can be harmful to your kidneys.
Pending Results: No
--- NOTE | 2024-01-22 14:09 | W.DCSUMMARY ---
Discharge Summary
Discharge Data
Date of Admission: 01/14/24
Date of Discharge: 01/22/24
-
Pending Results: No
Hospital Course
Discharging Physician : Dr. Courtney Bardales
Disposition : Home with
Principal Discharge diagnosis : Fungemia and Bacteremia status post urological procedure resulting in septic shock
Hospital Course :
Ms. Jacqui Don is a 73 yo woman with hx DM II, recent complicated UTI with nephrolithiasis s/p stent placement 12/31 s/p stent exchange on 01/14/24 with post-op course complicated by fever, presented to ER and found to have septic shock 2/2 UTI.
Triage vitals with blood pressure 59/38, pulse 78. Labs with WBC 0.4, Hg 9.2, lactate 2.4, Urine with 60-70 WBC. She was initially admitted to IMU on IV Meropenem, IVF. She required increasing dosing of Vasopressors and admitted to ICU overnight
HD 1. Blood cultures returned positive for E. Coli and Shama glabrata. She was seen by ID. She received IV Cefazolin and IV Micafungin in-house. She was weaned off pressors with stable blood pressure. WBC normalized. Blood cultures now clear
> 72 hours; mid-line placed. On discharge she will complete a course of Ciprofloxacin 500mg PO BID through 01/27 and IV Micafungin through 02/01/24. Home infusion arranged.
Urological plan is for outpatient repeat urine cultures with definitive stone surgery in 3-4 weeks.
Hospital course complicated by heart failure from iatrogenic fluid overload resulting in hypoxic respiratory insufficiency. She was diuresed effectively and weaned off oxygen. TTE with normal EF and no significant valve disease. Seen by
cardiology. No need for further diuresis as outpatient.
Hospital course c/b OLGA 2/2 sepsis. Renal function returned to baseline pre-discharge.
Patient complained of right knee pain and swelling. X-ray with e/o osteoarthritis and effusion. Exam not suggestive of septic joint. Case discussed over the phone with Rheumatology (Dr. Reyes). Trial of colchicine recommended for likely
pseudogout. Patient was started on BID dosing and today has some improvement in pain. To be monitored closely as outpatient.
Patient had R > L hearing loss MRI with tortuous right AICA causing neurovascular impingement on cisternal segment right cochlear nerve. Seen by Dr. Gross in-patient and will need outpatient audiogram.
SNF recommended but patient prefers home with PT.
Time spent on discharge was 45 minutes.
Important imaging findings :
CXR 01/15/24
IMPRESSION:
No active cardiopulmonary disease.
The tip of the PICC line is at the cavoatrial junction
LE US 01/18/24
IMPRESSION:
No sonographic evidence for lower extremity venous thrombosis.
RENAL US 01/18/24
IMPRESSION:
Nonobstructing bilateral renal stones. New
BRAIN MRI 01/18/24
IMPRESSION:
1. NEUROVASCULAR IMPINGEMENT on the cisternal segment of the RIGHT COCHLEAR NERVE caused by a tortuous right AICA.
2. 5.4 mm chronic lacunar infarct in the left thalamus.
3. Minimal periventricular white matter leukoaraiosis in the frontal lobes.
TTE 01/18/24
CONCLUSIONS
1. Technically difficult study.
2. Grossly normal left ventricular size and systolic function without obvious
wall motion abnormalities. Estimated left ventricular ejection fraction is 55%
by visual estimation.
2. Normal right ventricular size and systolic function.
3. No significant valvular abnormalities.
4. No significant pericardial effusion.
Procedure findings :
Discharge Plan
-
Patient Disposition: Home with Home Care
Discharge Diagnosis/Procedures: Fungemia and Bacteremia status post urological procedure resulting in septic shock
Diet: Diabetic, Carb Controlled
Activity: As tolerated
Driving Restrictions: As prior to admission
Bathing Restrictions: None
Blood Work: CBC and CMP as written on home infusion order set
Other Services: VN, PT and OT
Activity Restrictions/Additional Instructions:
Follow up in 2-3 weeks with Urology. You will need repeat urine culture and then planning for definitive treatment of stone
Follow up with Dr. Gross to schedule audiogram (hearing test)
Please make an ophthalmology appointment early next week to schedule eye exam given blood yeast infection.
Referrals:
Alex Rao CRNP [Family Provider] - in less than 1 week
Venkata Oates MD [Active] - in two weeks
Luis Gross MD [Active] - in one to two weeks
Flora Narayanan MD [Active] - in three to four days (please make an appointment for early next week for eye exam given fungal infection)
Additional Discharge Medication Instructions: Take Ciprofloxacin 500mg twice a day through 01/28/24
Your IV Micafungin course is through 02/01/24.
Take Colchicine 0.6 twice a day for right knee pain. Ok to stop if knee pain resolves. Follow up closely with your PCP.
Stop current Glipizide dosing as I'm worried your blood sugars are going too low at home. You were only on 2.5mg here with reasonable blood sugars and your A1c is 6.8%. Glipizide 10mg twice a day is replaced with 5mg daily. Follow up closely with
your PCP.
Stop Farxiga given risk of UTI on this medication
Stop NSAIDs (Naproxen, Aleve, Advil). Take sparingly as they can be harmful to your kidneys.
Prescriptions:
New
Arthritis Hot Pain Relief 15-10 % Cream
1 applic topical TID Qty: 85 0RF
colchicine 0.6 mg Tablet
0.6 mg PO BID Qty: 20 0RF
Rx Instructions:
Take twice a day until symptoms of right knee pain resolve
glipizide 5 mg Tablet
5 mg PO DAILY Qty: 30 0RF
Micafungin Sodium [Mycamine] 100 MG
Dextrose 5%/Water 100 ml [D5w] 100 ML
105 mls/hr IV Q24H
Ordered By: Courtney Bardales MD
Last Taken: 01/22/24 10:21 105 mls
ciprofloxacin HCl [Cipro] 500 mg tablet
500 mg PO Q12H Qty: 13 0RF
Continued
rosuvastatin 10 mg tablet
10 mg PO DAILY
tamsulosin 0.4 mg Capsule
0.4 mg PO HS
Discontinued
glipizide 10 mg tablet
10 mg PO BID@0800,1700
naproxen sodium [Aleve] 220 mg Tablet
220 mg PO DAILY
ibuprofen-acetaminophen [Advil Dual Action] 125-250 mg Tablet
1 tab PO TIDPRN PRN (Reason: mild pain)
Discharge Orders:
Discharge Patient (As Directed); Ordered 01/22/24
Ordered By: Courtney Bardales
Discharge Date and Time
Print Language: BULGARIAN
[2024-01-22 15:45] VITALS: BP 168/81
== END 2024-01-22 17:09 | disposition home health service (06) | DRG 862 ==
LOC: 4 EAST ACU 12:52
PROVIDERS: Internal Medicine; Internal Medicine Hematology & Oncology; Nurse Practitioner; Radiology Diagnostic Radiology; Registered Nurse; Surgery; ADMITTING PHYSICIAN Internal Medicine; ATTENDING PHYSICIAN Student in an Organized Health Care Education/Training Program; CONSULT PHYSICIAN Internal Medicine; CONSULT PHYSICIAN Internal Medicine Cardiovascular Disease; CONSULT PHYSICIAN Internal Medicine Critical Care Medicine; CONSULT PHYSICIAN Otolaryngology; EMERGENCY PHYSICIAN Student in an Organized Health Care Education/Training Program; FAMILY PHYSICIAN Nurse Practitioner Adult Health; OTHER PHYSICIAN Internal Medicine Infectious Disease
PROC: 02HV33Z Insertion of Infusion Device into Superior Vena Cava, Percutaneous Approach (ICD-10-PCS; 2024-01-15)
DX: T81.44XA Sepsis following a procedure, initial encounter (principal); A41.51 Sepsis due to Escherichia coli [E. coli]; R65.21 Severe sepsis with septic shock; N17.0 Acute kidney failure with tubular necrosis; I50.33 Acute on chronic diastolic (congestive) heart failure; N13.6 Pyonephrosis; B49 Unspecified mycosis; E87.20 Acidosis, unspecified; D68.9 Coagulation defect, unspecified; I5A Non-ischemic myocardial injury (non-traumatic); N20.0 Calculus of kidney; E11.36 Type 2 diabetes mellitus with diabetic cataract; E78.00 Pure hypercholesterolemia, unspecified; D70.9 Neutropenia, unspecified; D69.6 Thrombocytopenia, unspecified; E83.51 Hypocalcemia; D50.9 Iron deficiency anemia, unspecified; N27.0 Small kidney, unilateral; H91.92 Unspecified hearing loss, left ear; R09.02 Hypoxemia; D63.8 Anemia in other chronic diseases classified elsewhere; M17.11 Unilateral primary osteoarthritis, right knee; R06.89 Other abnormalities of breathing; M25.461 Effusion, right knee; E04.1 Nontoxic single thyroid nodule; E78.1 Pure hyperglyceridemia; G43.909 Migraine, unspecified, not intractable, without status migrainosus; Y73.2 Prosthetic and other implants, materials and accessory gastroenterology and urology devices associated with adverse incidents; Y92.530 Ambulatory surgery center as the place of occurrence of the external cause; Y83.8 Other surgical procedures as the cause of abnormal reaction of the patient, or of later complication, without mention of misadventure at the time of the procedure; Z79.84 Long term (current) use of oral hypoglycemic drugs; Z87.442 Personal history of urinary calculi; Z87.440 Personal history of urinary (tract) infections; Z86.73 Personal history of transient ischemic attack (TIA), and cerebral infarction without residual deficits
CPT/HCPCS: 51701; 70551; 71045; 71046; 73564; 76775; 80048; 80053; 81003; 81015; 81099; 82365; 82570; 82607; 82728; 82746; 82805; 82962; 83036; 83540; 83550; 83605; 83735; 83880; 84100; 84300; 84484; 85025; 85027; 85379; 85384; 85610; 85730; 86022; 87040; 87086; 87107; 87149; 87158; 87186; 87205; 93005; 93306; 93970; 96361; 96365; 96366; 96375; 97163; 97167; 97530; 97535; 99285

== ENCOUNTER 2024-02-18 22:24 | Inpatient (IN) | payer BC, MEDICARE, SELFPAY ==
[2024-02-18 17:08] VITALS: BP 116/85
[2024-02-18 17:32] LABS: % Basophils 0.4 % (0-2); % Eosinophils 0.1 % (0-6); % Immature Granulocytes 0.4 % (0-0.5); % Neutrophils 72.1 % (42.2-75.2); Absolute Lymphocytes 1.4 10^3/uL (1.2-3.4); Absolute Monocytes 1.1 10^3/uL (0.1-0.6); Absolute Neutrophils 6.8 10^3/uL (1.4-6.5); Hematocrit 30.1 % (37.0-47.0); Hemoglobin 9.9 g/dL (12.0-16.0); Mean Corp Hgb Conc. 32.9 g/dL (33.0-37.0); Mean Corpuscular Hgb 29.3 pg (27.0-31.0); Mean Corpuscular Volume 89.1 fL (81.0-99.0); Mean Platelet Volume 9.8 fL (7.4-10.4); Nucleated Red Blood Cells % 0 %; Platelet Count 237 10^3/uL (130-400); Red Blood Cell Count 3.38 10^6/uL (4.20-5.40); Red Cell Dist. Width 14.7 % (11.5-14.5); White Blood Cell Count 9.5 10^3/uL (4.8-10.8)
[2024-02-18 18:12] LABS: ALT (SGPT) 14 U/L (0-35); AST (SGOT) 19 U/L (14-36); Albumin 4.3 g/dl (3.5-5.0); Alkaline Phosphatase 92 U/L (38-126); Blood Urea Nitrogen 43 mg/dl (7-17); Calcium 9.4 mg/dl (8.4-10.2); Carbon Dioxide 22 mmol/L (22-30); Chloride 100 mmol/L (98-107); Glucose 172 mg/dl (70-99); Lipase 93 U/L (23-300); Potassium 4.6 mmol/L (3.5-5.1); Sodium 133 mmol/L (135-145); Total Bilirubin 1.3 mg/dl (0.2-1.3); Total Protein 7.9 g/dl (6.3-8.2)
[2024-02-18 18:43] VITALS: BP 132/57
--- NOTE | 2024-02-18 19:03 | ED.GENMED ---
History of Present Illness
General
Chief Complaint: Abdominal Symptoms
Source: patient
Exam Limitations: none
Time Seen by Provider: 02/18/24 18:42
Nursing documentation reviewed up to this point in time: agreed with
History of Present Illness
History of Present Illness:
74-year-old female presents emergency room complaining of right flank pain that began last night. She also reports nausea vomiting, dizziness and cold. She had a stent placed for kidney stone on 01/14/2024 and was admitted for sepsis.
Past History
Past History
ED Past Medical History: Hypercholesterolemia, NIDDM and Other (Macular degeneration)
ED Past Surgical History: (X 2) and Other (cataracts)
Social History
Tobacco: Non-smoker
Alcohol: None
Personal:
Living: with family
Review of Systems
Review of Systems
Allergies reviewed?: Yes
All Other Systems: Not applicable
Constitutional: Reports chills
EENT: Reports no symptoms
Respiratory: Reports no symptoms
Cardiac: Reports no symptoms
ABD/GI: Reports no symptoms
: Reports flank pain
Musculoskeletal: Reports no symptoms
Skin: Reports no symptoms
Neurological: Reports no symptoms
Endocrine: Reports no symptoms
Hematologic/Lymphatic: Reports no symptoms
Psychiatric: Reports no symptoms
Phy Exam
Physical Exam
Physical Exam:
Physical Exam
General: Afebrile
Neck: supple. no meningeal signs. normal posterior pharynx
Heart: s1/s2 regular rate and rhythm, no murmur. equal radial
pulses.
HEENT: Pupils equal round reactive to light, EOMI
Lungs: no acute respiratory distress. clear bilaterally
Abdomen: normal bowel sounds. not tender. no CVAT
Neuro: alert and oriented. no focal neurological deficits cranial nerves II through XII intact
Skin: no rash
Psychiatric: well kept. interactive and cooperative
Extremities: no edema. no calf tenderness. negative homans. good distal pulses
Course
Orders/Labs/Results
Orders:
Orders
02/18/24 Dinner
1800 calorie (15 carb) Diabetic
At Your Request: Full Participation
02/18/24 17:26
Complete Blood Count/With Diff Urgent
Comprehensive Metabolic Panel Urgent
Lipase Urgent
02/18/24 19:02
CT Abd/pel Without Iv Or Oral Urgent
Comment:
Reason For Exam: right flank pain
02/18/24 19:24
Urinalysis Reflex To Culture Urgent
Date Specimen was Collected: 02/18/24
Time Specimen was Collected: 19:23
Urine Microscopic Reflex Cult Urgent
Urine Culture Urgent
MARY Source: U
Specimen Description:
Date Specimen was Collected: 02/18/24
Time Specimen was Collected: 19:23
02/18/24 20:13
Cefepime HCl [Maxipime] 1,000 mg IV NOW STA
02/18/24 20:41
Lactic Acid Q4H
Comment: CANCEL 2nd LACTIC ACID IF 1st LACTIC ACID IS LESS THAN 2
Blood Culture Urgent
MARY Source: Blood/Venous
Specimen Description:
02/18/24 20:43
Sterile Water [Sterile Water For Injection] 10 ml .ROUTE .[facility]
02/18/24 21:31
Gabapentin [Neurontin] 100 mg PO NOW STA
Cervical Spine 4 or 5 Vw [CR Cervical Spine 4 Or 5 Vw] Urgent
Comment:
Reason For Exam: neck pain with radicular arm pain right
02/18/24 21:32
Admit/Transfer Patient As Directed
Co-Sign Provider:
Level of Care: Inpatient admission
Assign to:: Telemetry
Physician / Group: luis ha
Diagnosis: right arm pain likely radicular vs djd, petra 2/2 nsaid use
Reason for Telemetry: Arrhythmia
Date to Stop Telemetry: 02/21/24
Time to Stop Telemetry: 11:00
Reason for Hospitalization: right arm pain likely radicular vs djd, petra 2/2 nsaid use
Expected length of stay greater than two midnights?: Yes
ELOS- Estimated Length of Stay in days: 3
I certify the patient meets the requirements for IP care: Yes
Code Status As Directed
Resuscitation Status: Full Code
02/18/24 22:41
0.9% Sodium Chloride 1000 ml [Nss] 1,000 ml IV 100 mls/hr
Rosuvastatin Calcium [Crestor] 10 mg PO HS
02/18/24 22:41
Activity As Directed
Activity Level: As Tolerated
Intake/ Output As Directed
Frequency: Per unit guidelines
Vital Signs As Directed
Frequency: Per unit guidelines
Weight As Directed
Frequency: Daily
Ot Eval And Treat Routine
Pt Eval And Treat Routine
Treatment: right arm pain
Activity Level: As Tolerated
DX Deep Vein Thrombosis Video Routine
02/19/24 05:03
Complete Blood Count/With Diff IN AM
Comprehensive Metabolic Panel IN AM
02/19/24 08:00
Acetaminophen [Tylenol] 650 mg PO BID
Gabapentin [Neurontin] 100 mg PO BID
GlipiZIDE [Glucotrol] 5 mg PO DAILY
Heparin 5,000 units SC Q12
02/20/24 06:00
Complete Blood Count/With Diff IN AM
Comprehensive Metabolic Panel IN AM
02/21/24 11:00
DC Protocol for Telemetry ONCE
Abnormal Lab Results
02/18/24 02/18/24
17:26 19:24
RBC 3.38 L 10^6/uL
(4.20-5.40)
Hgb 9.9 L g/dL
(12.0-16.0)
Hct 30.1 L %
(37.0-47.0)
MCHC 32.9 L g/dL
(33.0-37.0)
RDW 14.7 H %
(11.5-14.5)
Absolute Neuts (auto) 6.8 H 10^3/uL
(1.4-6.5)
Absolute Monos (auto) 1.1 H 10^3/uL
(0.1-0.6)
Lymphocytes % 15.0 L %
(20.5-51.1)
Monocytes % 12.0 H %
(1.7-9.3)
Sodium 133 L mmol/L
(135-145)
BUN 43 H mg/dl
(7-17)
Creatinine 2.4 H mg/dL
(0.6-1.0)
Glucose 172 H mg/dl
(70-99)
Urine Ketones Trace A
(Negative)
Ur Occult Blood Reflex 2+ A
(Negative)
Urine Bilirubin 2+ A
(Negative)
Leukocyte Esterase Rfl 2+ A
(Negative)
Urine RBC 7-10 A /HPF
(0-2)
Urine WBC (Reflex) >100 A /HPF
(0-5)
Urine Bacteria (Reflex) Many A
(Negative)
Urine Albumin (Reflex) 2+ A
(Neg - Trace)
02/18/24 17:26
02/18/24 17:26
Vital Signs
Initial and Last Documented VS:
Initial Vital Signs
Temp Pulse Resp BP Pulse Ox
98.1 F 88 16 116/85 97
02/18/24 17:08 02/18/24 17:08 02/18/24 17:08 02/18/24 17:08 02/18/24 17:08
Last Documented Vital Signs
Temp Pulse Resp BP Pulse Ox
98.3 F 85 18 129/59 96
02/19/24 05:55 02/19/24 03:04 02/19/24 03:04 02/19/24 03:04 02/19/24 03:04
MDM/Problems Addressed
Differential Diagnosis Includes:
Urinary tract infection, pyelonephritis, infected ureteral calculus.
MDM/Problems Addressed:
74-year-old female with UTI, concern effected stone. IV cefepime ordered. CT abdomen pelvis pending. IV fluids ordered. Acute renal failure
Chronic conditions affecting care: Other (Prior kidney stones)
Acute Exacerbation and/or Progression of Chronic Illness: Other (Prior kidney stones and sepsis)
*Radiology
Radiology exam reviewed: radiology read reviewed (ct a/p nad, right double J stent in place)
*Pulse Oximetry
Patient hypoxic: no
*EKG
Interpreted by ED Provider?: NA
*Mail Handler Sorter Interpretation
Rate: Mail Handler Sorter- N/A
*Critical Care Note
Total Time (30-74mins, 75-104mins- exclusive of procedures): Not Applicable
Data Reviewed
Review of Other/Old Records Reveals: Labs (Prior urine cultures positive for E. coli pansensitive)
Source: records
Patient Management
Social determinants of health affecting care: Living situation
Discussion with other providers: Hospitalist
Escalation/DeEscalation of care consider admission/obs:
Admit indicated
ED Attending Note
-
Portions of this chart may have been created with voice recognition software.� Occasional wrong word or��sound alike� substitutions may have occurred due to the inherent limitations of voice recognition software.
Discharge Plan
Departure
Patient Disposition: Admit
Date of Disposition: 02/18/24
Time of Disposition: 20:36
Admit to: Med/Surg
Presentation/result/management discussed w/ accepting MD/DO: Hospitalist
Patient with high blood pressure during this ER visit?: Yes
Condition: Good
Discharge Problem:
Urinary tract infection, Acute renal failure
Interventions
Interventions:
*Risk Screen - Suicide Last Done: 02/18/24 23:09
*General Assessment Last Done: 02/18/24 17:08
*Neglect/Abuse Screening Last Done: 02/18/24 18:40
ED- Fall Risk Assessment Last Done: 02/18/24 19:18
*ED COVID-19 Vaccine History Last Done: 02/18/24 23:09
*Nursing Disposition Last Done: 02/18/24 22:46
CY-Jcnbnc-Dngukfwyjo Assessment Last Done: 02/18/24 18:42
Discharge Date and Time
Discharge Date/Time: 02/18/24 22:47
[2024-02-18 19:21] VITALS: BP 132/75
[2024-02-18 19:45] LABS: Urine Albumin 2+ (Neg - Trace); Urine Bilirubin 2+ (Negative); Urine Character Very Cloudy (Clear); Urine Color Amber; Urine Glucose Negative (Negative); Urine Ketone Trace (Negative); Urine Leukocyte 2+ (Negative); Urine Nitrite Negative (Negative); Urine Occult Blood 2+ (Negative); Urine Specific Gravity 1.025 (<1.030); Urine Urobilinogen 1+ (Neg - 1+)
[2024-02-18 19:59] LABS: Urine Bacteria Many (Negative); Urine White Cell >100 /HPF (0-5)
[2024-02-18 20:00] VITALS: BP 137/62
[2024-02-18] MEDS: MAXIPIME 1000 MG IV (20:43)
--- NOTE | 2024-02-18 20:50 | HPS.HSE ---
Addendum entered and electronically signed by Zackery Upton DO 02/18/24 22:40:
Patient seen and examined independently. Agree with findings and plan as set forth by JENNIFER Patel.
Patient is a 74y F with PMH significant for DM, anemia and complicated UTI with nephrolithiasis requiring R ureteral stent who presents to ED complaining of RUE pain and weakness. Patient was recently hospitalized here for sepsis secondary to
UTI. She was treated with IV abx through 02/01/24. Patient denies any recurrent dysuria, frequency, fevers or chills. She does state that she has been having pain in the RUE - radiating from the neck / upper back to the fingertips. Pain is
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 She denies any recent trauma / injury. She denies any RLE symptoms.
Patient has been taking NSAIDs at home (PO and topical) in attempt to alleviate her symptoms - with little success.
In addition, patient informs me that she 'woke up' on the floor of her bathroom yesterday AM. She does not recall falling or passing out, but woke on the floor having been incontinent of stool.
She reports similar issues in the past - including while driving at one point (though not previously with stool incontinence).
Ass:
RUE Radicular Pain
OLGA
Right Ureteral Stent
Suspected Syncopal Event(s)
DM-II
Anemia of Chronic Disease
Chronic HFpEF
Plan:
Admit for further evaluation and treatment.
Presenting complaint is RUE radicular pain - which likely has little to do with her recent issues.
Check cervical imaging and +/- follow-up MRI for further evaluation.
Trial of low-dose gabapentin and avoid nephrotoxic agents for pain control.
PT / OT evaluations.
OLGA likely due to combination of NSAID use and hypovolemia / poor PO intake.
Also question possibility of intermittent hypoglycemia / syncope / relative hypotension.
Monitor on tele overnight.
Follow fingerstick glucose closely.
Hold sulfonylureas for now and would consider complete cessation given ongoing risk of hypoglycemia.
IVFs overnight and follow for improvement in renal function.
Urology consulted in the ED given stent placement - but no evidence of obstruction, etc noted on CT imaging.
Observe off of further abx for now pending urine symptoms, culture data, etc.
Original Note:
Family Physician
-
Family Physician: Alex Rao
Chief Complaint
-
Right arm pain Advil use x 3-1/2 weeks, nausea vomiting yesterday not eating taking glipizide
History of Present Illness
74-year-old female complaining of right posterior shoulder pain radiating down right arm with numbness to palmar surface. She reports having difficulty writing with a pencil and dropping things. She has been taking Advil 400 mg nightly since
discharge from the hospital on 01/22/2024. She reports the arm feels better when she holds it next to her body with a pillow. She has no deficits or weakness noted in her arm sensation is intact no other motor deficits. She reports yesterday not
eating due to headache but took her glipizide and started to feel nauseous and vomited. She denies any abdominal pain or current urinary symptoms.
She is status post recent complicated UTI with nephrolithiasis status post stent placement 12/31 with stent exchange on 01/14/2024 with postop course complicated by fever, and septic shock/E. coli bacteremia.
Past medical history nephrolithiasis septic shock E. coli bacteremia, fungemia, severe OA right knee, heart failure, thrombocytopenia secondary to sepsis, DM2 diet-controlled, HLD, macular degeneration, anemia of chronic disease, chronic right ear
hearing loss
Medical History
Past Medical History
Past Medical History: Reports Other
Additional Past Medical History:
Urine stone with hydronephrosis
Urinary tract infection
Renal stones
Thyroid nodule
Hypertriglyceridemia
complicated UTI with nephrolithiasis status post stent placement 12/31 with stent exchange on 01/14/2024 with postop course complicated by fever, and septic shock/E. coli bacteremia.
severe OA right knee
heart failure
thrombocytopenia secondary to sepsis
DM2 diet-controlled, HLD,
macular degeneration,
anemia of chronic disease
chronic right ear hearing loss
Past Surgical History: Reports Other
Additional Past Surgical History:
status post stent placement 12/31 with stent exchange on 01/14/2024
Social History
Tobacco: Non-smoker
Alcohol: None
Drug: None
Living: Alone
Employment: Employed
Family History
Family History: Not pertinent
Allergies / Home Medications
Allergies reflects when Allergies were last updated in [facility].
Home Medications with original date entered in [facility]
Allergy/Medication List:
Allergies
Allergy/AdvReac Type Severity Reaction Status Date / Time
No Known Allergies Allergy Verified 02/18/24 17:16
Home Medications
rosuvastatin 10 mg tablet 10 mg PO HS High Cholesterol 10/05/23
glipizide 5 mg tablet 5 mg PO DAILY #30 tabs 01/22/24
Advil 400 mg PO HS 02/18/24
acetaminophen 325 mg tablet 650 mg PO BID 02/18/24
Review of Systems
-
History Source: Patient
A 12 point ROS was completed and negative except as noted: Yes
Constitutional: Denies Fever or Fatigue
EENT: Denies Sore Throat or Runny Nose
Respiratory: Denies Cough or Trouble Breathing
Cardiac: Denies Chest Pain, Palpitations or Syncope
Abdomen/GI: Reports Nausea and Vomiting (Yesterday); Denies Abdominal Pain
Musculoskeletal: Reports Joint Swelling and Other (Pinpoint right scapular pain with radicular pain going down right arm to palmar surface of hand); Denies Joint Pain
Skin: Denies Itching or Rash
Neurological: Reports Headache (yesterday ); Denies Dizzy or Weakness
Endocrine: Reports No Symptoms
Hematologic/Lymphatic: Reports No Symptoms
Psych: Reports Calm
Physical Exam
Vital Signs
Vital Signs
Temp Pulse Resp BP Pulse Ox
98.1 F 83 22 132/57 98
02/18/24 17:08 02/18/24 19:21 02/18/24 19:21 02/18/24 18:43 02/18/24 19:18
Physical Exam
General: Comfortable, Conversant and Obese; No Fever or Chills
HEENT: NormoCephalic, Anicteric, Moist mucous membranes, PERRLA, [place] Conjunctivae, No Ptosis and Other (Slight tenderness right paraspinal muscle)
Respiratory: Clear; No Wheezes, Rales or Rhonchi
Cardiac: S1/S2 and Regular Rhythm; No Murmur, Rub, Gallop or Peripheral Edema
Breast: Deferred by me
GI: Soft, Non Tender, Non Distended, Normal Bowel Sounds and No Hepatosplenomegaly
Rectal: Deferred by Provider
Genito-urinary: No costovertebral tender
Musculoskeletal: No Clubbing, No Cyanosis, No Edema and Other (Point tenderness right posterior scapula with radiation down entire right arm to right palm 5 out of 5 strength no weakness appreciated to right or left arm slight point tenderness right
paraspinal)
Skin: Warm and Dry; No Rash or Jaundice
Neuro: AO x 3, No Motor Deficits, Nonfocal/grossly intact, Cranial Nerves Intact, DTR's Intact & Symmetrical and Other (Point tenderness right posterior scapula with radiation down entire right arm to right palm 5 out of 5 strength no weakness
appreciated to right or left arm slight point tenderness right paraspinal); No Slurred Speech, Facial Droop or Tremors
Psych: Calm
Laboratory Results
-
02/18/24 17:26
02/18/24 17:26
Laboratory Results
Total Bilirubin 1.3 mg/dl (0.2-1.3) 02/18/24 17:26
AST 19 U/L (14-36) 02/18/24 17:26
ALT 14 U/L (0-35) 02/18/24 17:26
Alkaline Phosphatase 92 U/L (38-126) 02/18/24 17:26
Lipase 93 U/L (23-300) 02/18/24 17:26
Impression/Plan
-
Impression/plan:
Admit to MedSurg
#OLGA 2/2 to Nsaid use
Creat 2.4 was 0.9 on discharge 01/22/2024
-IV NSS
-Repeat BMP in a.m.
CT abdomen pelvis without IV or oral contrast: No acute pathology of the abdomen or pelvis, right double-J stent, nonobstructing bilateral renal stones
mild left renal atrophy stable, mild fecal material in colon, mild diverticulosis
#Right arm/shoulder radicular pain times several weeks concern for nerve impingement/DJD
-Stop Advil 400 mg daily
-Start gabapentin 100 mg twice daily
-Continue Tylenol 650 mg twice daily
-Recommend outpatient Ortho follow-up
-Check cervical spine x-ray
-PT/OT
#Recent septic Shock 2/2 complicated UTI that required pressors during her admission
#Fungemia - source(Recent yeast anemia via blood culture 01/16/2024)
#E. Coli Bacteremia was to continue Cipro 500 twice daily and IV micafungin through 02/01/2024
-s/p ureteroscopy/stone manipulation/stent exchange 01/13 prior stent placement on 01/01/2024
-WBC 9.5, 98.1, 132/57
#DM2-carb controlled diet
SSI
-Continue glipizide encourage patient she must eat prior to taking her medication
-Advised patient to also check blood sugars at home
#Chronic heart failure new Dx January 2024
I/O, daily weights
TTE 01/18/2024: EF 55%, no wall abnormalities no valvular abnormalities normal RVS RVSF
#HLD
-Continue Crestor 10 mg at bedtime
#Anemia of chronic disease normocytic
Hgb 9.9 improved from prior 8.9
#Hx thrombocytopenia sepsis induced recent admission
PLT 237
#Hx Right Ear hearing loss
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
Was recommended for outpatient audiogram by ENT last admission
#Chronic right Knee Pain 2/2 severe OA
#Severe Osteoarthritis seen on X-ray last admission
-Completed short course of colchicine per rheumatology
DVT prophylaxis
Subcu heparin
CODE STATUS--Full code
[2024-02-18 21:00] VITALS: BP 152/56
[2024-02-18] MEDS: NEURONTIN 100 MG PO (22:31)
[2024-02-18 22:40] VITALS: BP 169/68; BMI 31.3
[2024-02-18] MEDS: NSS 1000 IV (23:23)
[2024-02-18] MEDS: CRESTOR 10 MG PO (23:23)
[2024-02-19] VITALS (7 sets, daily range): BP systolic 115–150; BP diastolic 59–110; PULSE 69–72; O2SAT 96–98; BMI 31.3
[2024-02-19] MEDS: TYLENOL 650 MG PO ×2 (03:06→22:39)
[2024-02-19 05:32] LABS: % Basophils 0.5 % (0-2); % Eosinophils 0.4 % (0-6); % Immature Granulocytes 0.9 % (0-0.5); % Lymphocytes 19.6 % (20.5-51.1); % Monocytes 13.7 % (1.7-9.3); % Neutrophils 64.9 % (42.2-75.2); Absolute Immature Granulocytes 0.1 10^3/uL (0-0.05); Absolute Lymphocytes 1.5 10^3/uL (1.2-3.4); Absolute Monocytes 1.1 10^3/uL (0.1-0.6); Hemoglobin 8.5 g/dL (12.0-16.0); Mean Corp Hgb Conc. 32.7 g/dL (33.0-37.0); Mean Corpuscular Hgb 29.4 pg (27.0-31.0); Nucleated Red Blood Cells % 0 %; Platelet Count 209 10^3/uL (130-400); Red Blood Cell Count 2.89 10^6/uL (4.20-5.40); Red Cell Dist. Width 14.6 % (11.5-14.5); White Blood Cell Count 7.7 10^3/uL (4.8-10.8)
[2024-02-19 05:56] LABS: ALT (SGPT) 11 U/L (0-35); AST (SGOT) 16 U/L (14-36); Albumin 3.4 g/dl (3.5-5.0); Alkaline Phosphatase 77 U/L (38-126); Blood Urea Nitrogen 41 mg/dl (7-17); Calcium 8.8 mg/dl (8.4-10.2); Carbon Dioxide 22 mmol/L (22-30); Chloride 104 mmol/L (98-107); Estimated Creatinine Clearance 21 ml/min; Glucose 113 mg/dl (70-99); Potassium 4.1 mmol/L (3.5-5.1); Sodium 134 mmol/L (135-145); Total Protein 6.5 g/dl (6.3-8.2); eGFR 23.09
--- NOTE | 2024-02-19 07:30 | W.PN.HOSP.TC ---
Today's Communication/Plan
-
IVF
monitor renal function
Gabapentin
PT/OT
Assessment / Plan
Assessment / Plan
Physical Exam
General: Comfortable, Conversant Obese
HEENT: NormoCephalic, Anicteric, Moist mucous membranes, PERRLA, [place] Conjunctivae
Respiratory: Clear; No Wheezes, Rales or Rhonchi
Cardiac: S1/S2 and Regular Rhythm; No Murmur, Rub, Gallop or Peripheral Edema
GI: Soft, Non Tender, Non Distended, Normal Bowel Sounds and No Hepatosplenomegaly
Genito-urinary: No costovertebral tender
Musculoskeletal: No Clubbing, No Cyanosis, No Edema. Point tenderness right posterior scapula with radiation down entire right arm to right palm 5 out of 5 strength no weakness appreciated to right or left arm slight point tenderness right
paraspinal
Skin: Warm and Dry; No Rash or Jaundice
Neuro: AO x 3
Psych: Calm
#OLGA 2/2 to Nsaid use
Creat 2.4 was 0.9 on discharge 01/22/2024
-IV NSS
CT abdomen pelvis without IV or oral contrast:
-No acute pathology of the abdomen or pelvis, right double-J stent, nonobstructing bilateral renal stones
-mild left renal atrophy stable, mild fecal material in colon, mild diverticulosis
#Right arm/shoulder radicular pain times several weeks concern for nerve impingement/DJD
-Stop Advil 400 mg daily
-Start gabapentin 100 mg TID
-Continue Tylenol 650 mg twice daily
-Recommend outpatient Ortho follow-up
-cervical spine x-ray appreciated DDD
-PT/OT appreciated Home health
#Recent septic Shock 2/2 complicated UTI that required pressors during her admission
#Fungemia - source(Recent yeast anemia via blood culture 01/16/2024)
#E. Coli Bacteremia was to continue Cipro 500 twice daily and IV micafungin through 02/01/2024
-s/p ureteroscopy/stone manipulation/stent exchange 01/13 prior stent placement on 01/01/2024
-Urology eval appreciated no urologic intervention indicated at this time.
#DM2-carb controlled diet
SSI
-Continue glipizide
-sliding scale
#Chronic heart failure new Dx January 2024
I/O, daily weights
TTE 01/18/2024: EF 55%, no wall abnormalities no valvular abnormalities normal RVS RVSF
#HLD
-Continue Crestor 10 mg at bedtime
#Anemia of chronic disease normocytic
H&H stable
#Hx thrombocytopenia sepsis induced recent admission
thrombocytopenia resolved
#Hx Right Ear hearing loss
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
Was recommended for outpatient audiogram by ENT last admission
#Chronic right Knee Pain 2/2 severe OA
#Severe Osteoarthritis seen on X-ray last admission
-Completed short course of colchicine per rheumatology
DVT prophylaxis
Subcu heparin
CODE STATUS--Full code
I spent a total of 50 minutes with the patient or on the floor. More than 50% of this time involved counseling and coordination of care.
Anticipated Discharge: Today
Subjective/Interval History
-
Date of Service: February 19, 2024
Seen and examined at bedside in no acute distress sitting up comfortably in chair. Reports some improvement in RUE symptoms though not resolved
Objective Data
-
Labs:
Laboratory Results
02/19/24
05:03
WBC 7.7
Hgb 8.5 L
Hct 26.0 L
Plt Count 209
Sodium 134 L
Potassium 4.1
Chloride 104
Carbon Dioxide 22
BUN 41 H
Creatinine 2.2 H
Glucose 113 H
Calcium 8.8
Total Bilirubin 1.0
AST 16
ALT 11
Alkaline Phosphatase 77
Vital Signs:
Vital Signs
Temp Pulse Resp BP Pulse Ox
98.3 F 85 18 129/59 96
02/19/24 05:55 02/19/24 03:04 02/19/24 03:04 02/19/24 03:04 02/19/24 03:04
I&O
02/18/24 02/19/24 02/20/24
06:59 06:59 06:59
Intake Total 1420 / 1420
Balance 1420 / 1420
[2024-02-19 07:35] LABS: Glucose - Point of Care 121 mg/dl (70-99)
[2024-02-19] MEDS: NOVOLOG FLEXPEN-LOW RESISTANCE SC ×2 (08:07→17:02)
[2024-02-19] MEDS: HEPARIN 5000 UNITS SC ×2 (09:37→21:14)
[2024-02-19] MEDS: NEURONTIN 100 MG PO ×3 (09:37→21:14)
[2024-02-19 09:59] LABS: Glycohemoglobin (HgbA1c) 6.8 % (4.0-5.6)
--- NOTE | 2024-02-19 11:22 | CONS.URO ---
Medical History
History of Present Illness
H/o E. Coli urosepsis and obstructive uropathy s/p right stent (12/05/23, [facility])
H/o E. Coli + enterobacter + yeast urosepsis
01/13: s/p right ureteroscopy/stone manipulation/stent exchange []
Past Medical History
Past Medical History: Other (DM type II Hyperlipidemia Urine stone with hydronephrosis History of recurrent UTI Kidney stones Thyroid nodule)
Allergies/Home Medications
Allergies
Allergy/AdvReac Type Severity Reaction Status Date / Time
No Known Allergies Allergy Verified 02/18/24 17:16
Home Medications
�Medication �Instructions �Recorded �Confirmed �Type
rosuvastatin 10 mg tablet 10 mg PO HS High Cholesterol 10/05/23 02/18/24 History
glipizide 5 mg tablet 5 mg PO DAILY #30 tabs 01/22/24 02/18/24 Rx
Advil 400 mg PO HS pain 02/18/24 02/18/24 History
acetaminophen 325 mg tablet 650 mg PO BID pain 02/18/24 02/18/24 History
Physical Exam
Vital Signs
Vital Signs
Temp Pulse Resp BP Pulse Ox
99.6 F 74 18 138/59 97
02/19/24 07:25 02/19/24 07:25 02/19/24 07:25 02/19/24 07:25 02/19/24 09:30
Lab / Testing Results
Laboratory Results
02/19/24 05:03
02/19/24 05:03
Physical Exam
elderly female - asleep
Assessment / Plan
-
persistence/recurrence of bacterial UTI
ureteral stent remains in proper position -- no indication for uro-surgical intervention currently
Data Reviewed
-
CT Scan: Image personally visualized and interpreted
Old Records: Reviewed
[2024-02-19 12:50] LABS: Glucose - Point of Care 315 mg/dl (70-99)
[2024-02-19] MEDS: NOVOLOG FLEXPEN-LOW RESISTANCE 4 UNITS SC (13:01)
[2024-02-19] MEDS: NSS 1000 IV (13:01)
--- NOTE | 2024-02-19 15:56 | CM ---
met with patient bedside.patient's son lives with her in a house with no anibal, 5 steps to living room where she sleeps on her couch.she has been doing this for years and now is just in a habit of sleeping and the couch which she states is comfortable
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
[address]
past medical history:niddm,macular degeneration,stent placed for kidney stone
patient is adm with right arm pain.for cervical spine xray,ivf 100cc/hr.seen by physical therapy who will follow patient.plan home with home pt vs snf.
[2024-02-19 17:00] LABS: Glucose - Point of Care 131 mg/dl (70-99)
[2024-02-19] MEDS: CRESTOR 10 MG PO (21:14)
[2024-02-19 21:53] LABS: Glucose - Point of Care 219 mg/dl (70-99)
[2024-02-20] MEDS: NSS 1000 IV (00:35)
[2024-02-20 03:42] VITALS: BP 121/101
[2024-02-20 04:13] VITALS: BMI 31.8
--- NOTE | 2024-02-20 06:29 | W.PN.URO.CBU ---
Today's Communication / Plan
-
abx and supportive care per medicine
Assessment / Plan
-
H/o E. Coli urosepsis and obstructive uropathy s/p right stent (12/05/23, [facility])
H/o E. Coli + enterobacter + yeast urosepsis
01/13: s/p right ureteroscopy/stone manipulation/stent exchange []
Diagnosis
-
Date of Service: February 20, 2024
-
Patient Diagnosis:
H/o E. Coli urosepsis and obstructive uropathy s/p right stent (12/05/23, [facility])
H/o E. Coli + enterobacter + yeast urosepsis
01/13: s/p right ureteroscopy/stone manipulation/stent exchange []
Objective
-
Vital Signs
Temp Pulse Resp BP Pulse Ox
98.0 F 67 18 121/101 96
02/20/24 03:42 02/20/24 03:42 02/20/24 03:42 02/20/24 03:42 02/20/24 03:42
Intake and Output
02/18/24 02/19/24 02/20/24
06:59 06:59 06:59
Intake Total 1420 / 1420 890 / 890
Balance 1420 / 1420 890 / 890
Intake:
Oral fluids 720 / 720 240 / 240
IV fluids (Total) 700 / 700 650 / 650
Other:
Number of approximated MODERATE 1 3
amounts of urine
Physical Exam
-
General - well developed, well nourished, no acute distress
Chest - clear bilaterally
Abdomen - soft, non-tender, positive bowel sounds, no CVAT, no incisional pain or distention
Genitalia - normal
Rectal - normal
Skin - warm & dry with no rash
Neuro - AOx3, no motor deficits
Extremities - no clubbing, no cyanosis, no edema
Incision - clean, dry
Dressing - clean, dry, intact
[2024-02-20 06:57] LABS: % Basophils 0.6 % (0-2); % Eosinophils 0.9 % (0-6); % Immature Granulocytes 0.4 % (0-0.5); % Lymphocytes 29.5 % (20.5-51.1); % Monocytes 12.8 % (1.7-9.3); % Neutrophils 55.8 % (42.2-75.2); Absolute Eosinophils 0.1 10^3/uL (0-0.7); Absolute Lymphocytes 1.6 10^3/uL (1.2-3.4); Absolute Monocytes 0.7 10^3/uL (0.1-0.6); Hematocrit 28.4 % (37.0-47.0); Hemoglobin 9.2 g/dL (12.0-16.0); Mean Corp Hgb Conc. 32.4 g/dL (33.0-37.0); Mean Corpuscular Hgb 29.9 pg (27.0-31.0); Mean Corpuscular Volume 92.2 fL (81.0-99.0); Mean Platelet Volume 10.2 fL (7.4-10.4); Nucleated Red Blood Cells % 0 %; Platelet Count 199 10^3/uL (130-400); Red Blood Cell Count 3.08 10^6/uL (4.20-5.40); Red Cell Dist. Width 14.3 % (11.5-14.5); White Blood Cell Count 5.3 10^3/uL (4.8-10.8)
[2024-02-20 07:03] LABS: Glucose - Point of Care 133 mg/dl (70-99)
--- NOTE | 2024-02-20 07:09 | W.PN.HOSP.TC ---
Today's Communication/Plan
-
discharge
Assessment / Plan
Assessment / Plan
Physical Exam
General: Comfortable, Conversant Obese
HEENT: NormoCephalic, Anicteric, Moist mucous membranes, PERRLA, [place] Conjunctivae
Respiratory: Clear; No Wheezes, Rales or Rhonchi
Cardiac: S1/S2 and Regular Rhythm; No Murmur, Rub, Gallop or Peripheral Edema
GI: Soft, Non Tender, Non Distended, Normal Bowel Sounds and No Hepatosplenomegaly
Genito-urinary: No costovertebral tender
Musculoskeletal: No Clubbing, No Cyanosis, No Edema. Point tenderness right posterior scapula with radiation down entire right arm to right palm 5 out of 5 strength no weakness appreciated to right or left arm slight point tenderness right
paraspinal
Skin: Warm and Dry; No Rash or Jaundice
Neuro: AO x 3
Psych: Calm
#OLGA 2/2 to Nsaid use vs poor oral intake
Creat 2.4 was 0.9 on discharge 01/22/2024
-IV NSS
-Cr since improved 1.4 baseline 0.9-1.0
CT abdomen pelvis without IV or oral contrast:
-No acute pathology of the abdomen or pelvis, right double-J stent, nonobstructing bilateral renal stones
-mild left renal atrophy stable, mild fecal material in colon, mild diverticulosis
#Right arm/shoulder radicular pain times several weeks concern for nerve impingement/DJD
-Stop Advil 400 mg daily
-Started gabapentin 100 mg TID, symptoms since improved
-Continue Tylenol 650 mg twice daily
-Recommend outpatient Ortho follow-up
-cervical spine x-ray appreciated DDD
-PT/OT appreciated Home health
#Recent septic Shock 2/2 complicated UTI that required pressors during her admission
#Fungemia - source(Recent yeast anemia via blood culture 01/16/2024)
#E. Coli Bacteremia was to continue Cipro 500 twice daily and IV micafungin through 02/01/2024
-s/p ureteroscopy/stone manipulation/stent exchange 01/13 prior stent placement on 01/01/2024
-Urology eval appreciated no urologic intervention indicated at this time.
-urinalysis suggestive of UTI but no dysuria seems relatively asymptomatic, one episode fever 100.4 overnight since resolved possibly non-infectious
-Augmentin started planned for 5 days, outpatient follow up with ID recommended
#DM2-carb controlled diet
SSI
-Continue glipizide
-sliding scale
#Chronic heart failure new Dx January 2024
I/O, daily weights
TTE 01/18/2024: EF 55%, no wall abnormalities no valvular abnormalities normal RVS RVSF
#HLD
-Continue Crestor 10 mg at bedtime
#Anemia of chronic disease normocytic
H&H stable
#Hx thrombocytopenia sepsis induced recent admission
thrombocytopenia resolved
#Hx Right Ear hearing loss
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
Was recommended for outpatient audiogram by ENT last admission
#Chronic right Knee Pain 2/2 severe OA
#Severe Osteoarthritis seen on X-ray last admission
-Completed short course of colchicine per rheumatology
DVT prophylaxis
Subcu heparin
CODE STATUS--Full code
medically stable for discharge home with home services and outpatient follow up recommendations.
Total Time Preparing Discharge __50 minutes including examination of the patient, summary of the hospital stay, instructions for continuing care to all relevant caregivers; and preparation of discharge records, prescriptions, and referral
forms if necessary.
Anticipated Discharge: Today
Subjective/Interval History
-
Date of Service: February 20, 2024
Seen and examined at bedside in no acute distress. reports overall feeling well. RUE pain improved. noted fever overnight 100.4 since resolved. Patient reports overall feeling well. eager to go home.
Objective Data
-
Labs:
Laboratory Results
02/20/24
06:00
WBC 5.3
Hgb 9.2 L
Hct 28.4 L
Plt Count 199
Sodium Pending
Potassium Pending
Chloride Pending
Carbon Dioxide Pending
BUN Pending
Creatinine Pending
Glucose Pending
Calcium Pending
Total Bilirubin Pending
AST Pending
ALT Pending
Alkaline Phosphatase Pending
Vital Signs:
Vital Signs
Temp Pulse Resp BP Pulse Ox
98.0 F 67 18 121/101 96
02/20/24 03:42 02/20/24 03:42 02/20/24 03:42 02/20/24 03:42 02/20/24 03:42
I&O
02/19/24 02/20/24 02/21/24
06:59 06:59 06:59
Intake Total 1420 / 1420 1130 / 1130
Balance 1420 / 1420 1130 / 1130
[2024-02-20 07:10] VITALS: BP 155/64
[2024-02-20 07:12] LABS: ALT (SGPT) 11 U/L (0-35); AST (SGOT) 14 U/L (14-36); Albumin 3.2 g/dl (3.5-5.0); Alkaline Phosphatase 82 U/L (38-126); Blood Urea Nitrogen 34 mg/dl (7-17); Carbon Dioxide 21 mmol/L (22-30); Chloride 109 mmol/L (98-107); Estimated Creatinine Clearance 33 ml/min; Glucose 130 mg/dl (70-99); Magnesium 2.2 mg/dl (1.6-2.3); Phosphorus 3.7 mg/dl (2.5-4.5); Potassium 4.3 mmol/L (3.5-5.1); Sodium 139 mmol/L (135-145); Total Bilirubin 0.7 mg/dl (0.2-1.3); Total Protein 6.5 g/dl (6.3-8.2); eGFR 39.73
[2024-02-20] MEDS: NOVOLOG FLEXPEN-LOW RESISTANCE SC (08:48)
[2024-02-20] MEDS: NEURONTIN 100 MG PO (08:48)
[2024-02-20] MEDS: HEPARIN 5000 UNITS SC (08:49)
[2024-02-20 11:05] VITALS: BP 152/66
[2024-02-20 11:59] LABS: Glucose - Point of Care 326 mg/dl (70-99)
--- NOTE | 2024-02-20 12:13 | W.DCSUMMARY ---
Discharge Summary
Discharge Data
Date of Admission: 02/18/24
Date of Discharge: 02/20/24
-
Pending Results: Yes
Additional Pending Results:
official culture results
Discharge Plan
-
Patient Disposition: Home with Home Care
Discharge Diagnosis/Procedures: Acute Kidney Injury Resolving
Right Upper Extremity pain suspected cervical radiculopathy
Possible Urinary Tract Infection vs benign colonization
Diabetes
Hyperlipidemia
Anemia of Chronic Disease
osteoarthritis
history obstructive uropathy status post stent placement
Condition: Fair
Diet: Diabetic, Carb Controlled
Activity: As tolerated and With Walker
Driving Restrictions: As prior to admission
Bathing Restrictions: None
Blood Work: Please repeat CBC and BMP with primary care provider in 1 week of discharge
Others Tests: Follow up with primary care provider or Orthopedic for Cervical Spine MRI outpatient in 1 month of discharge.
Other Services: PT and OT
Activity Restrictions/Additional Instructions:
Please follow up with primary care provider and infectious disease in 1 week of discharge. In 2-4 weeks of discharge, follow up with urology and orthopedics.
Augmentin has been started for 5 days possible urinary tract infection.
Gabapentin has been started for neuropathic/radiculopathy pain right upper extremity.
Advil and glipizide have been placed on hold due to recent acute kidney injury resolving. Follow up with primary care provider or other healthcare provider involved in your care to determine when safe to resume, if necessary to resume, if dosage
adjustment is necessary, and/or if an alternative medication is required instead.
Please take medications as prescribed/recommended and follow up with primary care provider and/or other healthcare provider involved in your care for refills and/or further adjustment to your medication regimen as necessary.
Referrals:
Alex Rao CRNP [Family Provider] - in one week
Reinaldo Lr DO [Active] - in two to four weeks
Venkata Oates MD [Active] - in two to four weeks
Princess Jean MD [Active] - in one week
Prescriptions:
New
amoxicillin-pot clavulanate 500-125 mg Tablet
1 tab PO Q12 5 Days Qty: 10 0RF
gabapentin 100 mg Capsule
100 mg PO TID 30 Days Qty: 90 0RF
Continued
rosuvastatin 10 mg tablet
10 mg PO HS
acetaminophen 325 mg Tablet
650 mg PO BID
Held
glipizide 5 mg Tablet
5 mg PO DAILY Qty: 30 0RF
Hold Instructions: On hold due to acute kidney injury. Follow up with primary care provider to determine when safe to resume and if any dosage adjustment is necessary based on kidney function.
Advil
400 mg PO HS
Hold Instructions: Held due to acute kidney injury. Follow up with primary care provider to determine when safe to resume, if necessary to resume.
Rx Instructions:
has been taking nightly last 3.5 weeks
Discharge Orders:
Discharge Patient (As Directed); Ordered 02/20/24
Ordered By: Cynthia Trujillo
Discharge Date and Time
Print Language: KHMER
--- NOTE | 2024-02-20 12:14 | CM ---
Addendum entered by Jayla Mojica 02/20/24 12:23:
Outpatient therapy provider list from [facility] website placed on chart
Pt noted concern with out of pocket costs and out of network providers
Original Note:
CM reviewed chart and noted dc order
Bedside meeting with pt- VN order placed by attending
Pt plans to return to work on dc and not maintain homebound status
In agreement with outpt PT/OT on dc
Already alerted son for tranbsport home
IMM completed 02/17 and remains valid
TT/Dr Trujillo requesting outpt therapy script
Discharge Disposition- home with outpt therapy, son transport
[2024-02-20] MEDS: AUGMENTIN 500 MG/125 MG 1 TABLET PO (12:22)
[2024-02-20] MEDS: NOVOLOG FLEXPEN-LOW RESISTANCE 4 UNITS SC (12:22)
== END 2024-02-20 13:15 | disposition home health service (06) | DRG 683 ==
LOC: 4 EAST ACU 22:24
PROVIDERS: Clinical Nurse Specialist Family Health; ADMITTING PHYSICIAN Hospitalist; ATTENDING PHYSICIAN Internal Medicine; EMERGENCY PHYSICIAN Emergency Medicine; FAMILY PHYSICIAN Nurse Practitioner Adult Health; OTHER PHYSICIAN Specialist
DX: N17.8 Other acute kidney failure (principal); I50.32 Chronic diastolic (congestive) heart failure; N39.0 Urinary tract infection, site not specified; E78.00 Pure hypercholesterolemia, unspecified; E11.9 Type 2 diabetes mellitus without complications; H35.30 Unspecified macular degeneration; D63.8 Anemia in other chronic diseases classified elsewhere; R15.9 Full incontinence of feces; E04.1 Nontoxic single thyroid nodule; E78.1 Pure hyperglyceridemia; M17.11 Unilateral primary osteoarthritis, right knee; M54.12 Radiculopathy, cervical region; H91.91 Unspecified hearing loss, right ear; N20.0 Calculus of kidney; K57.30 Diverticulosis of large intestine without perforation or abscess without bleeding; N26.1 Atrophy of kidney (terminal); E78.5 Hyperlipidemia, unspecified; M79.601 Pain in right arm; N14.0 Analgesic nephropathy; T39.315A Adverse effect of propionic acid derivatives, initial encounter; N14.19 Nephropathy induced by other drugs, medicaments and biological substances; T38.3X5A Adverse effect of insulin and oral hypoglycemic [antidiabetic] drugs, initial encounter; Y92.9 Unspecified place or not applicable; Z87.442 Personal history of urinary calculi
CPT/HCPCS: 72050; 74176; 80053; 81003; 81015; 82962; 83036; 83605; 83690; 83735; 84100; 85025; 87040; 87077; 87086; 87186; 96374; 97162; 97166; 99285

== ENCOUNTER → 2024-02-25 13:36 | Outpatient (REF) | payer BC, MEDICARE, SELFPAY ==
[2024-02-25 14:53] LABS: Urine Albumin Trace (Neg - Trace); Urine Bilirubin Negative (Negative); Urine Character Clear (Clear); Urine Color Yellow; Urine Glucose 3+ (Negative); Urine Ketone Negative (Negative); Urine Leukocyte Trace (Negative); Urine Nitrite Negative (Negative); Urine Occult Blood Negative (Negative); Urine Urobilinogen Negative (Neg - 1+)
[2024-02-25 17:00] LABS: Urine Red Blood Cell 0-2 /HPF (0-2); Urine White Cell 0-2 /HPF (0-5)
== END ==
LOC: REG 13:36
PROVIDERS: ATTENDING PHYSICIAN Surgery; FAMILY PHYSICIAN Nurse Practitioner Adult Health
DX: N39.0 Urinary tract infection, site not specified (principal)
CPT/HCPCS: 81003; 81015; 87086

== ENCOUNTER → 2024-03-02 08:24 | Outpatient (REF) | payer BC, SELFPAY ==
[2024-03-02 09:58] LABS: % Basophils 0.9 % (0-2); % Eosinophils 2.5 % (0-6); % Immature Granulocytes 0.3 % (0-0.5); % Lymphocytes 24.3 % (20.5-51.1); % Monocytes 6.7 % (1.7-9.3); % Neutrophils 65.3 % (42.2-75.2); Absolute Basophils 0.1 10^3/uL (0-0.2); Absolute Eosinophils 0.2 10^3/uL (0-0.7); Absolute Lymphocytes 1.6 10^3/uL (1.2-3.4); Absolute Monocytes 0.5 10^3/uL (0.1-0.6); Absolute Neutrophils 4.4 10^3/uL (1.4-6.5); Hemoglobin 9.7 g/dL (12.0-16.0); Mean Corp Hgb Conc. 32.3 g/dL (33.0-37.0); Mean Corpuscular Hgb 30.4 pg (27.0-31.0); Mean Platelet Volume 9.9 fL (7.4-10.4); Nucleated Red Blood Cells % 0 %; Platelet Count 322 10^3/uL (130-400); Red Blood Cell Count 3.19 10^6/uL (4.20-5.40); Red Cell Dist. Width 14.5 % (11.5-14.5); White Blood Cell Count 6.8 10^3/uL (4.8-10.8)
[2024-03-02 10:40] LABS: Blood Urea Nitrogen 40 mg/dl (7-17); Calcium 9.4 mg/dl (8.4-10.2); Carbon Dioxide 23 mmol/L (22-30); Chloride 106 mmol/L (98-107); Glucose 161 mg/dl (70-99); Potassium 5.7 mmol/L (3.5-5.1); Sodium 140 mmol/L (135-145); eGFR 36.57
== END ==
LOC: REG 08:24
PROVIDERS: ATTENDING PHYSICIAN Nurse Practitioner Adult Health
DX: N17.9 Acute kidney failure, unspecified (principal); N39.0 Urinary tract infection, site not specified
CPT/HCPCS: 36415; 80048; 85025

== ENCOUNTER 2024-03-04 06:16 | Day surgery (SDC) | payer BC, SELFPAY ==
--- NOTE | 2024-03-01 15:34 | PTCARENOTE ---
Abnormal EKG and CXR reviewed by Dr. Collins. No further action requested.
[2024-03-04] VITALS (11 sets, daily range): BP systolic 121–166; BP diastolic 52–81; BMI 32.8
[2024-03-04] MEDS: NORMOSOL-R 1000 IV (11:10)
[2024-03-04 11:11] LABS: Glucose - Point of Care 165 mg/dl (70-99)
[2024-03-04 13:06] LABS: Glucose - Point of Care 153 mg/dl (70-99)
[2024-03-08 18:39] LABS: Stone Analysis Mass 30 mg
== END 2024-03-04 14:46 | disposition home or self-care (01) ==
LOC: SDS 06:16
PROVIDERS: ATTENDING PHYSICIAN Surgery
DX: N13.2 Hydronephrosis with renal and ureteral calculous obstruction (principal); Z87.440 Personal history of urinary (tract) infections
CPT/HCPCS: 52356; 74018; 76000; 82365; 82962; C1758; C1769; C1894; C2617

== ENCOUNTER → 2024-03-11 14:02 | Outpatient (REF) | payer BC, SELFPAY ==
[2024-03-11 15:23] LABS: Iron 73 ug/dl (37-170)
[2024-03-11 15:33] LABS: Percent Saturation 24 % (20-50); Total Iron Binding Capacity 299 ug/dl (265-497)
[2024-03-11 16:34] LABS: Folate 9.2 ng/ml (2.76-20); Vitamin B12 403 pg/ml (239-931)
== END ==
LOC: REG 14:02
PROVIDERS: ATTENDING PHYSICIAN Nurse Practitioner Adult Health
DX: D64.9 Anemia, unspecified (principal)
CPT/HCPCS: 36415; 82607; 82746; 83540; 83550

== ENCOUNTER → 2024-04-07 13:35 | Outpatient (REF) | payer BC, SELFPAY ==
[2024-04-07 15:15] LABS: ALT (SGPT) 19 U/L (0-35); AST (SGOT) 22 U/L (14-36); Alkaline Phosphatase 101 U/L (38-126); Blood Urea Nitrogen 28 mg/dl (7-17); Calcium 9.7 mg/dl (8.4-10.2); Carbon Dioxide 27 mmol/L (22-30); Chloride 106 mmol/L (98-107); Glucose 165 mg/dl (70-99); Potassium 4.8 mmol/L (3.5-5.1); Sodium 143 mmol/L (135-145); Total Bilirubin 1.2 mg/dl (0.2-1.3); Total Protein 7.3 g/dl (6.3-8.2); eGFR 53.06
[2024-04-08 08:49] LABS: Glycohemoglobin (HgbA1c) 7.8 % (4.0-5.6)
== END ==
LOC: REG 13:35
PROVIDERS: ATTENDING PHYSICIAN Nurse Practitioner Adult Health
DX: E11.9 Type 2 diabetes mellitus without complications (principal)
CPT/HCPCS: 36415; 80053; 83036

== ENCOUNTER → 2024-05-23 14:12 | Outpatient (REF) | payer BC, SELFPAY | LOC: MRI 3T 14:12 | PROVIDERS: ATTENDING PHYSICIAN Nurse Practitioner Adult Health | DX: M54.12 Radiculopathy, cervical region (principal); M50.30 Other cervical disc degeneration, unspecified cervical region; M47.812 Spondylosis without myelopathy or radiculopathy, cervical region; M48.02 Spinal stenosis, cervical region | CPT/HCPCS: 72141 ==

== ENCOUNTER → 2024-07-20 11:00 | Outpatient (REF) | payer BC, SELFPAY ==
[2024-07-20 12:12] LABS: % Basophils 0.5 % (0-2); % Immature Granulocytes 0.4 % (0-0.5); % Monocytes 8.2 % (1.7-9.3); % Neutrophils 63.9 % (42.2-75.2); Absolute Eosinophils 0.1 10^3/uL (0-0.7); Absolute Lymphocytes 1.4 10^3/uL (1.2-3.4); Absolute Monocytes 0.5 10^3/uL (0.1-0.6); Absolute Neutrophils 3.5 10^3/uL (1.4-6.5); Hematocrit 35.5 % (37.0-47.0); Hemoglobin 11.4 g/dL (12.0-16.0); Mean Corp Hgb Conc. 32.1 g/dL (33.0-37.0); Mean Corpuscular Hgb 30.3 pg (27.0-31.0); Mean Corpuscular Volume 94.4 fL (81.0-99.0); Mean Platelet Volume 10.6 fL (7.4-10.4); Nucleated Red Blood Cells % 0 %; Platelet Count 183 10^3/uL (130-400); Red Blood Cell Count 3.76 10^6/uL (4.20-5.40); Red Cell Dist. Width 12.5 % (11.5-14.5); White Blood Cell Count 5.5 10^3/uL (4.8-10.8)
[2024-07-20 14:15] LABS: ALT (SGPT) 19 U/L (0-35); AST (SGOT) 21 U/L (14-36); Alkaline Phosphatase 99 U/L (38-126); Blood Urea Nitrogen 39 mg/dl (7-17); Calcium 9.3 mg/dl (8.4-10.2); Carbon Dioxide 25 mmol/L (22-30); Chloride 108 mmol/L (98-107); Glucose 167 mg/dl (70-99); HDL Cholesterol 65 mg/dl; LDL Cholesterol, Calculated 121 mg/dl; Potassium 5.3 mmol/L (3.5-5.1); Sodium 141 mmol/L (135-145); Total Cholesterol 220 mg/dl (50-199); Total Protein 7.3 g/dl (6.3-8.2); Triglyceride 173 mg/dl (10-149); Very Low Density Lipoprotein 34 mg/dl (0-30); eGFR 53.06
[2024-07-20 14:45] LABS: TSH Reflex To Free T4 2.04 uIU/ml (0.47-4.68)
== END ==
LOC: REG 11:00
PROVIDERS: ATTENDING PHYSICIAN Nurse Practitioner Adult Health
DX: E11.9 Type 2 diabetes mellitus without complications (principal); M47.812 Spondylosis without myelopathy or radiculopathy, cervical region; R29.898 Other symptoms and signs involving the musculoskeletal system; R20.0 Anesthesia of skin; E78.2 Mixed hyperlipidemia; Z00.00 Encounter for general adult medical examination without abnormal findings
CPT/HCPCS: 36415; 80053; 80061; 83036; 84443; 85025

== ENCOUNTER → 2024-11-14 08:08 | Outpatient (REF) | payer BC, SELFPAY ==
[2024-11-14 09:23] LABS: ALT (SGPT) 18 U/L (0-35); AST (SGOT) 20 U/L (14-36); Albumin 4.1 g/dl (3.5-5.0); Alkaline Phosphatase 104 U/L (38-126); Blood Urea Nitrogen 39 mg/dl (7-17); Calcium 9.4 mg/dl (8.4-10.2); Carbon Dioxide 26 mmol/L (22-30); Chloride 109 mmol/L (98-107); Glucose 196 mg/dl (70-99); HDL Cholesterol 56 mg/dl; LDL Cholesterol, Calculated 123 mg/dl; Potassium 5.4 mmol/L (3.5-5.1); Sodium 144 mmol/L (135-145); Total Bilirubin 1.1 mg/dl (0.2-1.3); Total Cholesterol 203 mg/dl (50-199); Total Protein 7.2 g/dl (6.3-8.2); Triglyceride 124 mg/dl (10-149); Very Low Density Lipoprotein 24 mg/dl (0-30)
[2024-11-14 09:40] LABS: Glycohemoglobin (HgbA1c) 9.5 % (4.0-5.6)
== END ==
LOC: REG 08:08
PROVIDERS: ATTENDING PHYSICIAN Nurse Practitioner Adult Health
DX: Z00.00 Encounter for general adult medical examination without abnormal findings (principal); E11.9 Type 2 diabetes mellitus without complications; D64.9 Anemia, unspecified
CPT/HCPCS: 36415; 80053; 80061; 83036

== ENCOUNTER → 2024-12-12 14:27 | Outpatient (REF) | payer BC, SELFPAY | LOC: RAD 14:27 | PROVIDERS: ATTENDING PHYSICIAN Surgery; FAMILY PHYSICIAN Nurse Practitioner Adult Health | DX: N20.0 Calculus of kidney (principal) | CPT/HCPCS: 76775 ==

== ENCOUNTER → 2025-02-13 07:31 | Outpatient (REF) | payer BC, SELFPAY ==
[2025-02-13 09:54] LABS: ALT (SGPT) 18 U/L (0-35); AST (SGOT) 19 U/L (14-36); Albumin 4.0 g/dl (3.5-5.0); Alkaline Phosphatase 82 U/L (38-126); Blood Urea Nitrogen 36 mg/dl (7-17); Calcium 9.2 mg/dl (8.4-10.2); Carbon Dioxide 27 mmol/L (22-30); Chloride 111 mmol/L (98-107); Glucose 107 mg/dl (70-99); HDL Cholesterol 45 mg/dl; LDL Cholesterol, Calculated 79 mg/dl; Potassium 4.7 mmol/L (3.5-5.1); Sodium 141 mmol/L (135-145); Total Protein 7.4 g/dl (6.3-8.2); Very Low Density Lipoprotein 45 mg/dl (0-30); eGFR 39.48
[2025-02-13 10:01] LABS: Microalbumin, Random Urine > 57.0 mg/dl (0.6-1.7)
[2025-02-13 10:19] LABS: Glycohemoglobin (HgbA1c) 7.5 % (4.0-5.6)
== END ==
LOC: REG 07:31
PROVIDERS: ATTENDING PHYSICIAN Nurse Practitioner Adult Health
DX: E11.9 Type 2 diabetes mellitus without complications (principal); E78.00 Pure hypercholesterolemia, unspecified
CPT/HCPCS: 36415; 80053; 80061; 82043; 83036

== ENCOUNTER → 2025-05-19 08:31 | Outpatient (REF) | payer BC, SELFPAY ==
[2025-05-19 09:36] LABS: ALT (SGPT) 19 U/L (0-35); AST (SGOT) 21 U/L (14-36); Albumin 4.0 g/dl (3.5-5.0); Alkaline Phosphatase 87 U/L (38-126); Blood Urea Nitrogen 39 mg/dl (7-17); Calcium 9.3 mg/dl (8.4-10.2); Carbon Dioxide 25 mmol/L (22-30); Chloride 110 mmol/L (98-107); Glucose 123 mg/dl (70-99); HDL Cholesterol 50 mg/dl; LDL Cholesterol, Calculated 96 mg/dl; Potassium 4.9 mmol/L (3.5-5.1); Sodium 141 mmol/L (135-145); Total Protein 7.5 g/dl (6.3-8.2); Very Low Density Lipoprotein 42 mg/dl (0-30); eGFR 43.15
[2025-05-19 10:31] LABS: Glycohemoglobin (HgbA1c) 6.4 % (4.0-5.6)
[2025-05-19 14:09] LABS: Microalbumin, Random Urine > 57.0 mg/dl (0.6-1.7)
== END ==
LOC: REG 08:31
PROVIDERS: ATTENDING PHYSICIAN Nurse Practitioner Adult Health
DX: E11.22 Type 2 diabetes mellitus with diabetic chronic kidney disease (principal); N18.32 Chronic kidney disease, stage 3b; E78.00 Pure hypercholesterolemia, unspecified; R80.9 Proteinuria, unspecified
CPT/HCPCS: 36415; 80053; 80061; 82043; 83036